=== PATIENT | female | born 1945 | race Caucasian/White ===

== ENCOUNTER → 2017-08-09 | Outpatient (CLI) | payer MEDICARE ==
[2017-08-09 10:52] LABS: CH 29.3; CHCM 30.5; HCT 45.8 % (34.0-46.0); HDW 2.03; HGB 14.3 gm/dL (11.4-16.0); Hypochromasia Slight; MCH 30.2 pg (25.0-35.0); MCHC 31.3 g/dL (31.0-37.0); MCV 96.5 fL (80.0-100.0); Mean Platelet Volume 7.7; RBC 4.75 m/uL (3.80-5.40); RDW 12.5 % (11.5-15.5); WBC 7.6 k/uL (3.8-10.6)
[2017-08-09 11:05] LABS: Partial Thromboplastin Time 23.1 sec (22.0-30.0); Prothrombin Time 10.3 sec (9.0-12.0)
[2017-08-09 11:13] LABS: Appearance,Urine Clear (Clear); Bacteria,Urine Rare /hpf; Bilirubin,Urine Negative (Negative); Glucose,Urine (UA) Negative (Negative); Ketones,Urine Negative (Negative); Leukocyte Esterase,Urine Small (Negative); Mucus,Urine Rare /hpf; Nitrite,Urine Negative (Negative); PH, Urine 6.5 (5.0-8.0); Particle Count 2621; Protein,Urine Trace (Negative); RBC,Urine 1 /hpf (0-5); Specific Gravity,Urine 1.015 (1.001-1.035); Squamous Epithelial Cell,Urine 3 /hpf (0-4); UA Billing (MACRO vs. MICRO) MICRO; Urobilinogen,Urine <2.0 mg/dL (<2.0); WBC,Urine 1 /hpf (0-5)
[2017-08-09 11:16] LABS: ALT 45 U/L (9-52); AST 42 U/L (14-36); Alkaline Phosphatase 98 U/L (38-126); Anion Gap 9 mmol/L; Blood Urea Nitrogen 18 mg/dL (7-17); Calcium 9.5 mg/dL (8.4-10.2); Carbon Dioxide 24 mmol/L (22-30); Chloride 107 mmol/L (98-107); Glucose 99 mg/dL (74-99); Non-African American GFR(MDRD) >60 (>60 ml/min/1.73 sqM); Sodium 140 mmol/L (137-145); Total Bilirubin 0.6 mg/dL (0.2-1.3); Total Protein 7.2 g/dL (6.3-8.2)
[2017-08-09 11:20] LABS: Potassium 5.3 mmol/L (3.5-5.1)
== END | disposition home or self-care (01) ==
LOC: LABPAT 10:10
PROVIDERS: ATTEND Orthopaedic Surgery
DX: Z01.810 Encounter for preprocedural cardiovascular examination (principal); Z01.812 Encounter for preprocedural laboratory examination; M17.12 Unilateral primary osteoarthritis, left knee
CPT/HCPCS: 36415; 80053; 81001; 85027; 85610; 85730; 87070

== ENCOUNTER → 2017-11-23 | Outpatient (CLI) | payer MEDICARE ==
--- NOTE | 2017-11-24 11:44 | BD ---
EXAMINATION TYPE: MG DEXA axial skeleton. DATE OF EXAM: 11/23/2017 COMPARISON: NONE CLINICAL Osteoporosis screening . Postmenopausal female. Height: 5'5 1/2 Weight: 249 FRAX RISK QUESTIONS: Alcohol (3 or more units per day): no Family History (Parent hip fracture): no Glucocorticoids (More than 3mos): no (Ex: prednisone, prednisolone, methylprednisolone, dexamethasone, and hydrocortisone). History of Fracture in Adulthood: no Secondary Osteoporosis: 1. Type 1 Diabetes: no 2. Hyperthyroidism: no 3. Menopause before 45: yes 4. Malnutrition: no 5. Chronic liver disease: no Rheumatoid Arthritis: no Current Tobacco Use: no RISK FACTORS HISTORY OF: Diet low in dairy products/other sources of calcium: Postmenopausal woman: MEDICATIONS: Additional Medications: blood pressure, arthritis, stomach , Additional History: partial thyroidectomy 2010 goiter EXAM MEASUREMENTS: Bone mineral densitometry was performed using the Trufa System. Bone mineral density as measured about the Lumbar spine is: ----- L1-L4(G/cm2): 1.243 T Score Values are as follows: ----- L2: -0.4 ----- L3: 0.9 ----- L4: 0.7 ----- L1-L4: 0.5 Bone mineral density about the R hip (g/cm2): 0.882 Bone mineral density about the L hip (g/cm2): 0.815 T Score values are as follows: -----R Neck: -1.1 -----L Neck: -1.6 -----R Total: -1.6 -----L Total: -1.4 IMPRESSION: Osteopenia (T Score between -2.5 and -1) as noted by T score values with respect to both hips. There is slightly increased risk of fracture and the patient may be considered for treatment. Re-Screen 2-5 years. NOTE: T-SCORE=SD OF THE YOUNG ADULT MEAN.
== END | disposition home or self-care (01) ==
LOC: RADBDWWP 16:08
PROVIDERS: ATTEND Family Medicine
DX: M85.851 Other specified disorders of bone density and structure, right thigh (principal); M85.852 Other specified disorders of bone density and structure, left thigh
CPT/HCPCS: 77080

== ENCOUNTER → 2018-03-10 | Outpatient (CLI) | payer MEDICARE ==
[2018-03-10 15:52] LABS: Appearance,Urine Clear (Clear); Bilirubin,Urine Negative (Negative); Blood,Urine Negative (Negative); Color,Urine Yellow; Glucose,Urine (UA) Negative (Negative); Ketones,Urine Negative (Negative); Leukocyte Esterase,Urine Negative (Negative); Nitrite,Urine Negative (Negative); Protein,Urine Negative (Negative); Specific Gravity,Urine 1.019 (1.001-1.035); Urobilinogen,Urine <2.0 mg/dL (<2.0)
[2018-03-10 15:54] LABS: HCT 39.5 % (34.0-46.0); MCH 29.5 pg (25.0-35.0); MCV 89.2 fL (80.0-100.0); Mean Platelet Volume 7.7; Platelet Count 260 k/uL (150-450); RBC 4.43 m/uL (3.80-5.40); RDW 13.5 % (11.5-15.5); WBC 8.5 k/uL (3.8-10.6)
[2018-03-10 16:01] LABS: Partial Thromboplastin Time 22.9 sec (22.0-30.0); Prothrombin Time 9.8 sec (9.0-12.0)
[2018-03-10 16:16] LABS: ALT 19 U/L (9-52); AST 28 U/L (14-36); Albumin 3.8 g/dL (3.5-5.0); Alkaline Phosphatase 92 U/L (38-126); Anion Gap 14 mmol/L; Blood Urea Nitrogen 23 mg/dL (7-17); Calcium 9.4 mg/dL (8.4-10.2); Carbon Dioxide 23 mmol/L (22-30); Chloride 105 mmol/L (98-107); Glucose 86 mg/dL (74-99); Potassium 4.2 mmol/L (3.5-5.1); Sodium 142 mmol/L (137-145); Total Bilirubin 0.2 mg/dL (0.2-1.3); Total Protein 7.2 g/dL (6.3-8.2)
== END ==
LOC: LABWHC1 15:07
PROVIDERS: ATTEND Orthopaedic Surgery
DX: Z01.812 Encounter for preprocedural laboratory examination (principal); Z79.01 Long term (current) use of anticoagulants
CPT/HCPCS: 36415; 80053; 81003; 85027; 85610; 85730; 87070

== ENCOUNTER → 2018-03-16 | Outpatient (CLI) | payer MEDICARE ==
--- NOTE | 2018-03-16 17:15 | US ---
EXAMINATION TYPE: US carotid duplex BILAT DATE OF EXAM: 03/16/2018 COMPARISON: NONE CLINICAL HISTORY: G45.9 TRANSIENT CEREBRAL ISCHEMIC ATTACK. TIA 09/24. Patient having a total knee re placement 03/21/18 EXAM MEASUREMENTS: RIGHT: Peak Systolic Velocity (PSV) cm/sec ----- Right CCA: 65.2 ----- Right ICA: 94.4 ----- Right ECA: 94.9 ICA/CCA ratio: 1.4 RIGHT: End Diastole cm/sec ----- Right CCA: 19.9 ----- Right ICA: 36.2 ----- Right ECA: 12.1 LEFT: Peak Systolic Velocity (PSV) cm/sec ----- Left CCA: 89.4 ----- Left ICA: 96.6 ----- Left ECA: 93.3 ICA/CCA ratio: 1.1 LEFT: End Diastole cm/sec ----- Left CCA: 29.1 ----- Left ICA: 45.0 ----- Left ECA: 15.4 VERTEBRALS (direction of flow): Right Vertebral: Antegrade Left Vertebral: Antegrade Rhythm: Normal No evidence of increased velocities or significant stenosis. IMPRESSION: There is antegrade flow in the vertebral arteries. The images and measurements suggest c lose to 0% stenosis in both internal carotid arteries. Criteria for Assigning % of Stenosis / Diameter reduction (Estimation based on the indirect measurements of the internal carotid artery velocities (ICA PSV). 1. Normal (no stenosis)=ICA PSV < 125 cm/s: ratio < 2.0: ICA EDV<40 cm/s. 2. Less than 50% stenosis=ICA PSV < 125 cm/s: ratio < 2.0: ICA EDV<40 cm/s. 3. 50 to 69% stenosis=ICA PSV of 125 to 230 cm/s: ration 2.0 ? 4.0: ICA EDV 40-100 cm/s. 4. Greater than 70% stenosis to near occlusion= ICA PSV > 230 cm/s: ratio > 4.0: ICA EDV > 100 cm/s. 5. Near occlusion= ICA PSV velocities may be low or undetectable: variable ratio and ICA EDV. 6. Total occlusion=unable to detect flow.
== END | disposition home or self-care (01) ==
LOC: RADUSWWP 16:14
PROVIDERS: ATTEND Family Medicine
DX: G45.9 Transient cerebral ischemic attack, unspecified (principal)
CPT/HCPCS: 93880

== ENCOUNTER 2018-03-21 06:07 | Inpatient (IN) | payer MEDICARE ==
[2018-03-14 11:02] VITALS: BMI 38.8
[~2018-03-21 06:07] MED LIST: ACETAMINOPHEN TAB 500 MG TAB PO ONE; DEXAMETHASONE SOD PHOSPHATE 10 MG/ML 1 ML VIAL IV ONE; MELOXICAM 7.5 MG TAB PO ONE; MIDAZOLAM 2 MG/2 ML VIAL IV PRN; ONDANSETRON 4 MG/2 ML VIAL IVP ONE; TRANEXAMIC ACID 1,000 MG in SODIUM CHLORIDE 0.9% 50 ML IVPB ONE; ceFAZolin IN SWFI 2 GM/20 ML SYRINGE IVP ONE; fentaNYL (PF) 50 MCG/ML 2 ML AMP IV PRN
[2018-03-21] MEDS ORDERED: ROPIVACAINE 246.25 MG, EPINEPHrine 0.5 MG, KETOROLAC 30 MG, cloNIDine HCL/PF 80 MCG, WA... MISCELLANE ONE ×5 (07:00)
[2018-03-21] MEDS ORDERED: LIDOCAINE 1% 20 ML VIAL (10MG/ML) FOR IV START INTRADERMA ONE (07:03)
[2018-03-21] MEDS: LACTATED RINGERS 1,000 ML IV SCH ×3 (07:03→21:44)
[2018-03-21] MEDS ORDERED: MIDAZOLAM 2 MG/2 ML VIAL ONE (08:07)
[2018-03-21] MEDS ORDERED: diphenhydrAMINE 50 MG/ML 1 ML VIAL ONE (08:07)
[2018-03-21] MEDS ORDERED: fentaNYL (PF) 50 MCG/ML 2 ML AMP ONE (08:07)
[2018-03-21] MEDS ORDERED: ePHEDrine SULFATE/0.9% NACL/PF 50 MG/5 ML SYRINGE IV ONE (08:07)
[2018-03-21] MEDS ORDERED: LACTATED RINGERS 1,000 ML IV ONE (09:02)
[2018-03-21] MEDS: LACTATED RINGERS 1,000 ML IV ONE ×2 (09:02→10:43)
[2018-03-21] MEDS ORDERED: ceFAZolin 3,000 MG in SODIUM CHLORIDE 0.9% IRRIGATIO 3,000 ML IRRIGATION ONE (09:51)
[2018-03-21] MEDS ORDERED: NA PHOS,M-B/NA PHOS,DI-BA 133 ML ENEMA RECTAL PRN (10:48)
[2018-03-21] MEDS ORDERED: MORPHINE SULFATE 4 MG/ML SYRINGE IVP PRN ×4 (10:48)
[2018-03-21] MEDS ORDERED: BISACODYL 10 MG SUPP RECTAL PRN (10:48)
[2018-03-21] MEDS ORDERED: MAGNESIUM HYDROXIDE 2,400 MG/10 ML CUP PO PRN (10:48)
[2018-03-21] MEDS ORDERED: NALOXONE 0.4 MG/ML 1 ML VIAL IV PRN (10:48)
[2018-03-21] MEDS ORDERED: hydrOXYzine PAMOATE 25 MG CAP PO PRN (10:48)
[2018-03-21] MEDS ORDERED: KETOROLAC 30 MG/ML 1 ML VIAL IVP ONE (11:22)
--- NOTE | 2018-03-21 11:36 | XR ---
EXAMINATION TYPE: XR knee limited RT DATE OF EXAM: 03/21/2018 CLINICAL HISTORY: Right knee pain and arthritis status post total knee replacement. TECHNIQUE: Portable AP and crosstable lateral views of the right knee are obtained immediately posto peratively. COMPARISON: Bilateral knee x-ray September 01, 2015 FINDINGS: Metallic hardware from total right knee arthroplasty is seen and appears satisfactory in a lignment and position. There is evidence of recent surgery with diffuse subcutaneous gas and soft ti ssue swelling noted. IMPRESSION: METALLIC HARDWARE FROM TOTAL RIGHT KNEE ARTHROPLASTY IS SATISFACTORY IN ALIGNMENT.
[2018-03-21] MEDS ORDERED: ONDANSETRON 4 MG/2 ML VIAL IVP PRN (11:52)
[2018-03-21] MEDS ORDERED: ALBUTEROL NEBULIZED 2.5 MG/3 ML INHALATION PRN (12:35)
[2018-03-21] MEDS ORDERED: FLUTICASONE 50MCG/SPRAY NASAL 16GM EA NOSTRIL PRN (12:35)
[2018-03-21 16:59] LABS: Glucose,Whole Blood 110 mg/dL (75-99)
[2018-03-21] MEDS: ceFAZolin IN SWFI 2 GM/20 ML SYRINGE IVP SCH (17:47)
[2018-03-21] MEDS: traMADol 50 MG TAB PO PRN ×2 (17:48→23:13)
[2018-03-21] MEDS ORDERED: WARFARIN 5 MG TAB PO ONE (18:00)
[2018-03-21] MEDS ORDERED: cloNIDine HCL 0.1 MG TAB PO SCH (21:00)
[2018-03-21] MEDS ORDERED: SENNOSIDES-DOCUSATE SODIUM 1 EACH TAB PO SCH (21:00)
[2018-03-21] MEDS: cycloSPORINE 0.05% OPHTH 0.4 ML DROPERETTE BOTH EYES SCH (21:46)
[2018-03-21] MEDS: FAMOTIDINE 20 MG TAB PO SCH (21:46)
[2018-03-22] MEDS: ceFAZolin IN SWFI 2 GM/20 ML SYRINGE IVP SCH (00:05)
[2018-03-22] MEDS: LACTATED RINGERS 1,000 ML IV SCH ×2 (04:28)
[2018-03-22] MEDS: traMADol 50 MG TAB PO PRN ×2 (04:29→11:01)
--- NOTE | 2018-03-22 07:25 | CONS ---
CONSULTATION DATE OF SERVICE: 03/21/2018 REASON FOR CONSULTATION: Advice regarding hypertension, multiple medical issues requested by Orthopedic Surgery. HISTORY OF PRESENT ILLNESS: This is a 72-year-old woman with a past medical history of multiple medical problems including CVA, TIA, GERD, hypertension, DJD being followed by Dr. Jordan in the outpatient setting after total right knee arthroplasty by Dr. Varela. There is no history of chest pain. No palpitations. No history of headache, loss pf consciousness, nausea, diarrhea, fever or rigors. PAST MEDICAL HISTORY: DJD, history of hypertension, history of hypothyroidism, migraines, hiatal hernia. MEDICATIONS PRIOR TO ADMISSION INCLUDING HOME MEDICATIONS ARE: 1. Ultram 50 mg p.o. b.i.d. 2. Restasis 1 drop both eyes b.i.d. 3. Catapres 0.1 q.h.s. 4. Vitamin A, C,. lutein minerals 1 tablet p.o. daily. 5. Ranitidine 150 mg p.o. b.i.d. 6. Multivitamin 1 p.o. daily. 7. Meloxicam 15 mg p.o. daily. 8. Cozaar 25 mg p.o. 9. Claritin 10 mg p.o. daily. 10.Probiotic 1 capsule daily. 11.Glucosamine chondroitin 1 capsule p.o. daily. 12.Flonase 2 sprays daily p.r.n.. 13.Nexium 20 mg p.o. daily. 14.Vitamin D3 one thousand daily. 15.Ecotrin 81 mg p.o. daily. 16.ProAir 1 puff q.i.d. p.r.n. 17.Ultram 50 mg q.6 p.r.n. 18.Coumadin 2.5 mg p.o. daily. 19.1 tablet p.o. b.i.d. ALLERGIES: HYDROCODONE, ADHESIVE TAPE, ERYTHROMYCIN BASE. FAMILY HISTORY: History of cancer, hypertension, uterine cancer. SOCIAL HISTORY: Occasional alcohol. No history of smoking. REVIEW OF SYSTEMS: ENT: No diminished hearing or diminished vision. CARDIOVASCULAR: No angina. RESPIRATION: As mentioned earlier. GI: No nausea. : No dysuria. NERVOUS SYSTEM: No numbness or weakness. ALLERGY/IMMUNOLOGY: Asthma. MUSCULOSKELETAL: As mentioned earlier. RHEUMATOLOGY: Negative. ENDOCRINE: No history of diabetes or hypothyroidism. CONSTITUTIONAL: As mentioned earlier. DERMATOLOGY: Negative. PSYCHIATRY: As mentioned earlier. PHYSICAL EXAM: Patient is alert and oriented x3. Pulse is 82, blood pressure 125/52, respiration 15, temperature 98.2, pulse ox 94% on room air. HEENT: Conjunctivae normal. NECK: No jugular venous distension. CARDIAC: S1, S2 muffled. RESPIRATORY: Breath sounds diminished at the bases, no rhonchi, no crackles. ABDOMEN: Soft, nontender. No mass palpable. LEGS: Status post right knee arthroplasty. NERVOUS SYSTEM: Higher functions as mentioned earlier, moves all limbs, no focal deficits. LYMPHATICS: No lymphadenopathy in the neck or axillae. SKIN: No rash or bleeding. LABS: Glucose 110. ASSESSMENT: 1. Status post right total knee arthroplasty. 2. Cerebrovascular accident, transient ischemic attack. 3. Gastroesophageal reflux disease. 4. Hypertension. 5. Degenerative joint disease. 6. Hypothyroidism. 7. History of migraines. 8. Hiatal hernia. 9. History of cholecystectomy. RECOMMENDATION: Continue current medical management. Resume the rest of the home medications. ordered. DVT prophylaxis. Incentive spirometry. Otherwise continue to monitor. Further recommendations to follow. Patient will be asked to follow with Dr. Jordan closely after discharge. Thank you Dr. Varela, for letting us participate in the care of your patient. MMODL / IJN: [id number] / MTDD
[2018-03-22 07:28] LABS: INR 1.4 (<1.2); Prothrombin Time 12.8 sec (9.0-12.0)
[2018-03-22] MEDS ORDERED: PANTOPRAZOLE 40 MG TABLET PO SCH (07:30)
[2018-03-22 07:31] LABS: Basophils % (A) 0 %; Eosinophils % (A) 0 %; HCT 34.9 % (34.0-46.0); HGB 11.4 gm/dL (11.4-16.0); Lymphocytes # (A) 1.9 k/uL (1.0-4.8); Lymphocytes % (A) 14 %; MCH 29.5 pg (25.0-35.0); MCHC 32.6 g/dL (31.0-37.0); MCV 90.6 fL (80.0-100.0); Mean Platelet Volume 7.6; Monocytes # (A) 1.1 k/uL (0-1.0); Monocytes % (A) 8 %; Neutrophils # (A) 10.7 k/uL (1.3-7.7); Neutrophils % (A) 77 %; Platelet Count 240 k/uL (150-450); RBC 3.85 m/uL (3.80-5.40); RDW 13.5 % (11.5-15.5); WBC 13.8 k/uL (3.8-10.6)
[2018-03-22] MEDS: FAMOTIDINE 20 MG TAB PO SCH (07:50)
[2018-03-22] MEDS: cycloSPORINE 0.05% OPHTH 0.4 ML DROPERETTE BOTH EYES SCH (07:51)
[2018-03-22 08:01] VITALS: BP 101/65; PULSE 77; RESP 16; TEMP 98.8
[2018-03-22] MEDS ORDERED: LORATADINE 10 MG TAB PO SCH (09:00)
[2018-03-22] MEDS ORDERED: MELOXICAM 7.5 MG TAB PO SCH (09:00)
[2018-03-22] MEDS ORDERED: ASPIRIN 81 MG PO SCH (09:00)
[2018-03-22] MEDS ORDERED: LOSARTAN 25 MG TAB PO SCH (09:00)
--- NOTE | 2018-03-22 09:15 | P.DS ---
Providers Date of admission: 03/21/18 06:07 Expected date of discharge: 03/22/18 Attending physician: Deepak Varela Consults: 03/21/18 20:35 Consult Physician Routine Consulting Provider: Lissette Delgado Consult Reason/Comments: Medical Management Do you want consulting provider notified?: Yes Primary care physician: Anita Jordan - Discharge Diagnosis(es) (1) Osteoarthritis of right knee Patient was admitted to the OR on 03/21/2018 to undergo Right Total knee arthroplasty. She had failed conservative measures as an outpatient and desired to proceed with elective surgery after given informed consent. She underwent the above procedure which she tolerated well without complication. Postoperative hospital course has remained without complication. On day of discharge she is afebrile, vital signs stable, labs within acceptable ranges, tolerating by mouth meds and diet, voiding without difficulty, positive flatus, denies abdominal pain or calf pain, pain is controlled on oral pain medication and has no new complaints. Wound is benign, neurovascular status is intact, calf is soft and nontender, abdomen soft and nontender. Review of systems is negative for numbness, tingling, fever, chills, chest pain, shortness breath, nausea, vomiting, dizziness, headaches, slurred speech or other. Current Visit: Yes Status: Acute Priority: Medium Procedures: Right TKA Patient Condition at Discharge: Good Plan - Discharge Summary Discharge Rx Participant: Yes New Discharge Prescriptions: New Sennosides-Docusate Sodium [Senokot-S] 1 tab PO BID #60 tablet traMADol HCL [Ultram] 50 mg PO Q6HR PRN #90 tab PRN Reason: Pain Warfarin [Coumadin] 2.5 mg PO DAILY #1 tab No Action Esomeprazole Magnesium [NexIUM] 20 mg PO DAILY Vits A,C,E/Lutein/Minerals [Ocuvite with Lutein Tablet] 1 tab PO DAILY Multivitamins, Thera [Multivitamin (formulary)] 1 tab PO DAILY L.acidoph,Paracasei, B.lactis [Probiotic] 1 cap PO DAILY Glucosam/Murali-Msm1/C/Hai/Bosw [Glucosamine-Chondroitin Tablet] 1 tab PO DAILY cycloSPORINE [Restasis] 1 drop BOTH EYES BID cloNIDine HCL [Catapres] 0.1 mg PO HS Fluticasone Nasal Ona [Flonase Nasal Ona] 2 spr EA NOSTRIL DAILY PRN PRN Reason: Allergy Symptoms traMADol HCl [Ultram] 50 mg PO BID Losartan Potassium [Cozaar] 25 mg PO DAILY Loratadine [Claritin] 10 mg PO DAILY Meloxicam [Meloxicam] 15 mg PO DAILY Ranitidine HCl 150 mg PO BID Albuterol Sulfate [Proair Respiclick] 1 puff PO RT-QID PRN PRN Reason: Shortness Of Breath Cholecalciferol [Vitamin D3] 1,000 unit PO DAILY Aspirin [Adult Low Dose Aspirin EC] 81 mg PO DAILY Discharge Medication List Esomeprazole Magnesium [NexIUM] 20 mg PO DAILY 09/01/15 [History] Vits A,C,E/Lutein/Minerals [Ocuvite with Lutein Tablet] 1 tab PO DAILY 09/01/15 [History] Fluticasone Nasal Ona [Flonase Nasal Ona] 2 spr EA NOSTRIL DAILY PRN [History] Glucosam/Murali-Msm1/C/Hai/Bosw [Glucosamine-Chondroitin Tablet] 1 tab PO DAILY 08/05/17 [History] L.acidoph,Paracasei, B.lactis [Probiotic] 1 cap PO DAILY 08/05/17 [History] Multivitamins, Thera [Multivitamin (formulary)] 1 tab PO DAILY 08/05/17 [History ] cloNIDine HCL [Catapres] 0.1 mg PO HS 08/05/17 [History] cycloSPORINE [Restasis] 1 drop BOTH EYES BID 08/05/17 [History] Losartan Potassium [Cozaar] 25 mg PO DAILY 09/08/17 [History] traMADol HCl [Ultram] 50 mg PO BID 09/08/17 [History] Albuterol Sulfate [Proair Respiclick] 1 puff PO RT-QID PRN 03/14/18 [History] Loratadine [Claritin] 10 mg PO DAILY 03/14/18 [History] Meloxicam [Meloxicam] 15 mg PO DAILY 03/14/18 [History] Ranitidine HCl 150 mg PO BID 03/14/18 [History] Aspirin [Adult Low Dose Aspirin EC] 81 mg PO DAILY 03/21/18 [History] Cholecalciferol [Vitamin D3] 1,000 unit PO DAILY 03/21/18 [History] Sennosides-Docusate Sodium [Senokot-S] 1 tab PO BID #60 tablet 03/21/18 [Rx] Warfarin [Coumadin] 2.5 mg PO DAILY #1 tab 03/21/18 [Rx] traMADol HCL [Ultram] 50 mg PO Q6HR PRN #90 tab 03/21/18 [Rx] Follow up Appointment(s)/Referral(s): Caroline Collado, PAC [PHYSICIAN CORE MACHINE TENDER] - 2 Weeks Ambulatory/Diagnostic Orders: Continuous Passive Motion (CPM) Machine [DME.AMB1] Time Frame: 3 Weeks, Facility : [facility], Location: Case Management Prothrombin Time INR [LAB.AMB] Location: Determined By Patient Activity/Diet/Wound Care/Special Instructions: May bear wt as tolerated with walker. May shower if no drainage from incision. CPM 5-6h dailly. Discharge Disposition: HOME WITH HOME HEALTH SERVICES
[2018-03-22 11:20] LABS: Glucose,Whole Blood 97 mg/dL (75-99)
[2018-03-22] MEDS ORDERED: MULTIVITAMINS, THERA 1 EACH TAB PO SCH (12:00)
[2018-03-22] MEDS ORDERED: CHOLECALCIFEROL 1,000 UNIT TAB PO SCH (12:00)
--- NOTE | 2018-03-22 14:42 | P.PN ---
Subjective Patient is clinically doing well is being discharged today her blood pressure is on the low normal side which is expected post surgery. Asked her to continue her losartan check the blood pressure at home taken to the primary care physician patient is also on clonidine at nighttime for hot flashes. Constitutional: Denied any fatigue denied any fever. Cardio vascular: denied any chest pain, palpitations Gastrointestinal denied any nausea vomiting Pulmonary: Denied any shortness of breath cough Neurologic denied any new focal deficits Objective - Vital Signs Vital signs: Vital Signs Temp 98.8 F 03/22/18 07:42 Pulse 77 03/22/18 07:42 Resp 16 03/22/18 07:42 BP 101/65 03/22/18 07:42 Pulse Ox 96 03/22/18 07:42 Intake & Output 03/21/18 03/22/18 03/22/18 18:59 06:59 18:59 Intake Total 1801 800 474 Output Total 550 Balance 1251 800 474 Weight 112.491 kg Intake: IV 1501 Intake, IV Titration 300 800 Amount Lactated Ringers 1,000 ml 300 800 @ 100 mls/hr IV .Q10H SHABANA Rx#:[id number] Oral 474 Output: Urine 500 Estimated Blood Loss 50 Other: # Voids 2 1 # Bowel Movements 0 - Exam PHYSICAL EXAMINATION: GENERAL: The patient is alert and oriented x3, not in any acute distress. Well developed, well nourished. HEENT: Pupils are round and equally reacting to light. EOMI. No scleral icterus. No conjunctival pallor. Normocephalic, atraumatic. No pharyngeal erythema. No thyromegaly. CARDIOVASCULAR: S1 and S2 present. No murmurs, rubs, or gallops. PULMONARY: Chest is clear to auscultation, no wheezing or crackles. ABDOMEN: Soft, nontender, nondistended, normoactive bowel sounds. No palpable organomegaly. MUSCULOSKELETAL: Deferred to orthopedic surgery EXTREMITIES: No cyanosis, clubbing, or pedal edema. NEUROLOGICAL: Gross neurological examination did not reveal any focal deficits. SKIN: No rashes. - Labs CBC & Chem 7: 03/22/18 06:12 Labs: Abnormal Lab Results - Last 24 Hours (Table) 03/21/18 03/22/18 03/22/18 Range/Units 16:57 06:12 06:12 WBC 13.8 H (3.8-10.6) k/uL Neutrophils # 10.7 H (1.3-7.7) k/uL Monocytes # 1.1 H (0-1.0) k/uL PT 12.8 H (9.0-12.0) sec INR 1.4 H (<1.2) POC Glucose (mg/dL) 110 H (75-99) mg/dL Assessment and Plan Plan: -Leukocytosis: Reactive in nature without any signs or symptoms of infection patient is okay to discharged from medical perspective -Status post right knee arthroplasty patient's pain is well-controlled DVT prophylaxis and the pain management as per primary service -Hypertension management as mentioned above -Gastroesophageal reflux disease -Hypothyroidism -History of migraines -Degenerative joint disease with the right knee replacement now and history of left knee replacement in the past
[2018-03-22] MEDS ORDERED: WARFARIN 5 MG TAB PO ONE (18:00)
--- NOTE | 2018-04-06 17:23 | P.OP ---
Date of Procedure: 03/21/18 Procedure(s) Performed: PREOPERATIVE DIAGNOSIS: Right knee severe osteoarthritis with genu varum POSTOPERATIVE DIAGNOSIS: Right knee severe osteoarthritis with genu varum; 2. Diminished bone quality/osteopenia/osteoporosis OPERATION: Right knee cemented total replacement arthroplasty. ANESTHESIA: Spinal ESTIMATED BLOOD LOSS: 100 ml. DIRECTOR GLOBAL INTELLIGENCE: Caroline Collado PA-C (assistance with: patient positioning, retraction, exposure, hemostasis, leg positioning, implantation, irrigation, closure, dressing) COMPLICATIONS: None apparent. COMPONENTS IMPLANTED: Persona system from [employer] with tibial stem extension INDICATIONS: Mrs. Alvarez is a 72-year-old female with a history of knee osteoarthritis. She has already successfully undergone left knee replacement recently with excellent results. The patient's right knee is end-stage, and conservative management has failed. The operation of knee replacement has been discussed at length in the office, as well as potential risks and complications. These are inclusive of, but not limited to: bleeding, infection , scarring, discomfort, blood vessel and nerve damage, need for further surgery , failure to relieve symptoms, persistence, recurrence, or worsening of problems , loosening, dislocation, wear, blood clot, pulmonary embolism, , gait dysfunction, stiffness, and other risks as discussed in the office. The patient elects to proceed and the consent form has been signed. PROCEDURE: The patient was taken to the operating room and positioned on the operating room table in the supine position. Anesthesia was initiated. Care was taken to make sure that all pressure points were adequately padded. The operative lower extremity was prepped and draped in the usual aseptic fashion using ChloraPrep. Ioban drape was used for the case and the patient received intravenous antibiotics within one hour of the incision. A pneumotourniquet and leg wall were used for the case. The limb was exsanguinated with an Esmarch bandage and the tourniquet was inflated to 350 mmHg. Time-out was called confirming the patient's identity, side, procedure and administration of antibiotics. The incision was then created midline directly over the knee, carried down through skin and into the subcutaneous tissues and down to fascia. Full thickness subcutaneous medial flap was developed. Medial parapatellar arthrotomy was performed and the interior of the knee was inspected. There was end-stage osteoarthritis of the knee with a mild to moderate genu varum type deformity. The fat pad was excised and proximal medial release on the tibia was completed using meticulous dissection and a curved osteotome. The anterior cruciate ligament was taken down. Note was made of significant attrition of the anterior and significant degenerative appearance of the posterior cruciate ligaments. The exposure was excellent. The knee was flexed 90 degrees and the patella was everted. A spot was chosen on the femur approximately 1 cm anterior to the posterior cruciate ligament insertion and an intramedullary hole was created within the femur. The intramedullary guide was then set to 5 degrees of valgus. The distal cutting block was attached and pinned into position. An appropriate amount of distal femoral resection was set. The oscillating saw was then used to make the distal femoral cut. This cut was confirmed to be flat with the flat end of an osteotome. The retractors were placed around the tibia and the tibial surface was addressed. The angle and depth of resection was adjusted using an extramedullary cutting guide. The guide had a built-in 3 degree posterior slope cut. Once the cutting guide was adjusted appropriately and in line with the axis of the tibia and confirmed to be in good position in relation to the second metatarsal and transmalleolar axis, the tibial cut was then created with protection of the posterior neurovascular structures and the collateral ligaments. Note was made of diminished bone quality and therefore a short tibial stem extension was planned. The tibial cut surface was removed and sized. Femoral sizing was then accomplished using anterior referencing. Care was taken to analyze the posterior condyles for signs of deficiency or severe wear, and adjustments to the guide were made, as appropriate. 3 degree external rotation pins were placed. The cutting jig for the femur was applied to these pins. The planned cuts were further analyzed prior to performing them with the oscillating saw. No femoral notching was produced. Bone fragments were removed and the cut surfaces were finished, as necessary, with a reciprocating saw. Spacer block technique was then used to confirm that the flexion and extension gaps were equal. Soft tissue releases and adjustment of the tibial and/or femoral cuts were made, as necessary, until the gaps were equal. This included release of the posterior cruciate ligament, which was tight in this patient and , if left unreleased, would have resulted in poor kinematics and possibly early loosening. The femur was then further finished for a posterior cruciate ligament substituting component. Patellar resurfacing was performed using a reamer. The size of the required patellar component was estimated and the patellar surface was then reamed down to a residual thickness which would recreate the port gamble thickness with the component. The exact placement of the patellar component was adjusted for position based on preoperative x-rays and intraoperative findings. Prior to placing trial components, anesthetic solution consisting of ropivicaine with epinephrine, ketorolac, and clonidine was injected carefully and methodically in a grid pattern using aspiration technique into the soft tissue around the knee circumferentially, starting with the deeper tissues first and progressing to fascia, and then finally the skin/subcutaneous tissue. Particular care was taken when injecting the posterior capsule. The trial components were inserted. The tibial tray was allowed to self center and the patella was noted to track very well. The position of the tibial component was marked and the tibia was then finished for a stemmed tibial component with a stem extension secondary to the patient's osteoporosis. Cement was mixed on the back table and applied to the final components. Trial components were removed and the cut surfaces of the bone were pulse lavaged thoroughly and dried. Cement was then applied to the tibial surface and pressurized into the surface using finger pressurization technique. The tibial component with stem extension was then applied and excess cement was removed after it was impacted securely and noted to be flush with the cut surface. In similar fashion, the cement was applied to the cut femoral surface, pressurized in using finger pressurization and the component was impacted into place. Excess cement was removed. The polyethylene spacer was then implanted and locked into position. The patellar component was then applied in similar technique and a patellar clamp was used to hold the patella in place as the cement hardened. Once the cement had fully hardened, the knee was reinspected. Any other cement extrusion was removed and final kinematic testing showed range of motion from 0 to 130 degrees with excellent stability, both medially and laterally and appropriate alignment of the leg. Patellar tracking was excellent. The knee was then thoroughly pulse lavaged with normal saline. The tourniquet was deflated and hemostasis was obtained with electrocautery and IV tranexamic acid, 1 g given at the start of the operation and 1 g at the start of closure. Closure was with #2 Ethibond in the fascia/capsule and supplemented with #2 Quill, 2-0 Vicryl suture was used for the subcutaneous tissues and 3-0 Quill for the skin. Dermabond/Steri-Strips were then applied. A lightly compressive dressing was applied using Webril and an Jefe wrap. The patient was then transferred to [facility] and taken to the recovery room in stable condition. Sponge and needle counts were correct.
== END 2018-03-22 14:32 | disposition home health service (06) | DRG 470 ==
LOC: 2ORMAIN 06:07 → 3SUR 11:02
PROVIDERS: ADMIT Orthopaedic Surgery; ATTEND Orthopaedic Surgery
PROC: 0SRC0J9 Replacement of Right Knee Joint with Synthetic Substitute, Cemented, Open Approach (ICD-10-PCS; principal; 2018-03-21 08:00)
DX: M17.11 Unilateral primary osteoarthritis, right knee (principal); E89.0 Postprocedural hypothyroidism; M21.161 Varus deformity, not elsewhere classified, right knee; M81.0 Age-related osteoporosis without current pathological fracture; I10 Essential (primary) hypertension; K21.9 Gastro-esophageal reflux disease without esophagitis; K44.9 Diaphragmatic hernia without obstruction or gangrene; G43.909 Migraine, unspecified, not intractable, without status migrainosus; N95.1 Menopausal and female climacteric states; M85.861 Other specified disorders of bone density and structure, right lower leg; R26.9 Unspecified abnormalities of gait and mobility; H35.30 Unspecified macular degeneration; Z79.1 Long term (current) use of non-steroidal anti-inflammatories (NSAID); Z79.82 Long term (current) use of aspirin; Z79.01 Long term (current) use of anticoagulants; Z79.891 Long term (current) use of opiate analgesic; Z79.51 Long term (current) use of inhaled steroids; Z79.899 Other long term (current) drug therapy; Z90.49 Acquired absence of other specified parts of digestive tract; Z86.73 Personal history of transient ischemic attack (TIA), and cerebral infarction without residual deficits; Z96.652 Presence of left artificial knee joint; Z88.5 Allergy status to narcotic agent; Z88.1 Allergy status to other antibiotic agents; Z91.040 Latex allergy status; Z82.49 Family history of ischemic heart disease and other diseases of the circulatory system; Z80.49 Family history of malignant neoplasm of other genital organs
CPT/HCPCS: 85025; 85610; 88300

== ENCOUNTER 2018-07-05 10:08 | Emergency (ER) | payer MEDICARE ==
[2018-07-05 10:19] VITALS: BP 132/60; PULSE 75; RESP 16; TEMP 98.2
--- NOTE | 2018-07-05 11:04 | ED ---
Lower Extremity Injury HPI - General Source: patient, RN notes reviewed Mode of arrival: ambulatory Limitations: no limitations <Bobby Bonner - Last Filed: 07/05/18 11:19> <Chetan Nuñez - Last Filed: 07/05/18 11:25> - General Chief Complaint: Extremity Injury, Lower Stated Complaint: Lt leg pain Time Seen by Provider: 07/05/18 10:24 - History of Present Illness Initial Comments: This a 73-year-old female presents emergency Department with chief complaint of left leg pain. Patient states the pain started a day or so ago. She states initially has some pain around her knee but has now settled down more in her calf. She states that she was in [place] when this started she was walking was unusual. Patient states that she drove back to be seen. Patient denies any chest pain, and shortness of breath. She has no history of DVT. She has had bilateral knee surgery. Patient denies any redness, notable swelling. Denies any numbness or tingling at this time. She did state that the other day she had some. (Bobby Bonner) - Related Data Home Medications Medication Instructions Recorded Confirmed Esomeprazole Magnesium [NexIUM] 20 mg PO DAILY 09/01/15 07/05/18 Vits A,C,E/Lutein/Minerals 1 tab PO DAILY 09/01/15 07/05/18 [Ocuvite with Lutein Tablet] Fluticasone Nasal [place] [Flonase 2 spr EA NOSTRIL DAILY PRN 08/05/17 07/05/18 Nasal [place]] L.acidoph,Paracasei, B.lactis 1 cap PO DAILY 08/05/17 07/05/18 [Probiotic] Multivitamins, Thera [Multivitamin 1 tab PO DAILY 08/05/17 07/05/18 (formulary)] cloNIDine HCL [Catapres] 0.1 mg PO HS 08/05/17 07/05/18 cycloSPORINE [Restasis] 1 drop BOTH EYES BID 08/05/17 07/05/18 Losartan Potassium [Cozaar] 25 mg PO DAILY 09/08/17 07/05/18 Albuterol Sulfate [Proair 1 puff PO RT-QID PRN 03/14/18 07/05/18 Respiclick] Loratadine [Claritin] 10 mg PO DAILY 03/14/18 07/05/18 Meloxicam 15 mg PO DAILY 03/14/18 07/05/18 Ranitidine HCl 150 mg PO BID 03/14/18 07/05/18 Aspirin [Adult Low Dose Aspirin EC] 81 mg PO DAILY 03/21/18 07/05/18 Cholecalciferol [Vitamin D3] 1,000 unit PO DAILY 03/21/18 07/05/18 Allergies Allergy/AdvReac Type Severity Reaction Status Date / Time hydrocodone Allergy Nausea & Verified 07/05/18 10:33 Vomiting adhesive tape AdvReac skin Verified 07/05/18 10:33 irritation erythromycin base AdvReac Nausea Verified 07/05/18 10:33 Review of Systems ROS Other: All systems not noted in ROS Statement are negative. <Bobby Bonner - Last Filed: 07/05/18 11:19> ROS Other: All systems not noted in ROS Statement are negative. <Chetan Nuñez - Last Filed: 07/05/18 11:25> ROS Statement: Those systems with pertinent positive or pertinent negative responses have been documented in the HPI. Past Medical History Past Medical History: CVA/TIA, Eye Disorder, GERD/Reflux, Hypertension, Osteoarthritis (OA), Skin Disorder, Thyroid Disorder Additional Past Medical History / Comment(s): Hx migraines. Hiatal Hernia. Eczema, hx precancer skin lesions. ALYSON Corneal Dystrophy, Macular Degeneration. TIA 09/2017. VOCAL CORD PROB SINCE THYROID SURG, HOARSNESS, OCC DYSPHAGIA. OSTEOPOROSIS. HAS CAROTID US ON 03/16/18, CLEARANCE PENDING. History of Any Multi-Drug Resistant Organisms: None Reported Past Surgical History: Cholecystectomy, Hysterectomy, Joint Replacement, Orthopedic Surgery Additional Past Surgical History / Comment(s): Rt knee meniscus repair. Goiter removed and Partial Thyroidectomy. Left total knee replacement on 08/16/2017 Past Anesthesia/Blood Transfusion Reactions: No Reported Reaction Additional Past Anesthesia/Blood Transfusion Reaction / Comment(s): damage to vocal cords from thyroid surgery- told she should not have tube down her throat unless absolutely necessary Past Psychological History: No Psychological Hx Reported Smoking Status: Never smoker Past Alcohol Use History: None Reported Past Drug Use History: None Reported - Past Family History Mother Family Medical History: Cancer, Hypertension Additional Family Medical History / Comment(s): uterine Father Family Medical History: Coronary Artery Disease (CAD), Hypertension Additional Family Medical History / Comment(s): CABG <Bobby Bonner - Last Filed: 07/05/18 11:19> General Exam Limitations: no limitations General appearance: alert, in no apparent distress Head exam: Present: atraumatic, normocephalic, normal inspection Neck exam: Present: normal inspection. Absent: tenderness, meningismus, lymphadenopathy Respiratory exam: Present: normal lung sounds bilaterally. Absent: respiratory distress, wheezes, rales, rhonchi, stridor Cardiovascular Exam: Present: regular rate, normal rhythm, normal heart sounds. Absent: systolic murmur, diastolic murmur, rubs, gallop, clicks Extremities exam: Present: other (Tenderness to left calf, popliteal region, minimal swelling no erythema no increased warmth to the leg coloring is equal bilaterally, pedal pulses equal bilaterally) Skin exam: Present: warm, dry, intact, normal color. Absent: rash <Bobby Bonner - Last Filed: 07/05/18 11:19> Course <Bobby Bonner - Last Filed: 07/05/18 11:19> <Chetan Nuñez - Last Filed: 07/05/18 11:25> Vital Signs 07/05/18 10:15 Temperature 98.2 F Pulse Rate 75 Respiratory 16 Rate Blood Pressure 132/60 O2 Sat by Pulse 95 Oximetry - Reevaluation(s) Reevaluation #1: 07/05/18 11:25 PA supervision: I personally saw and examined the patient. I reviewed and agree with the PA findings including all diagnostic interpretations and treatment plans is written unless otherwise stated. (Chetan Nuñez) Medical Decision Making <Bobby Bonner - Last Filed: 07/05/18 11:19> <Chetan Nuñez - Last Filed: 07/05/18 11:25> - Medical Decision Making 73-year-old female presented for left leg pain, concern for DVT. Patient did HOURS negative for acute DVT. Patient may have a leg strain. Patient will continue conservative treatment including Tylenol and Motrin. Return parameters were discussed. (Bobby Bonner) Disposition Is patient prescribed a controlled substance at d/c from ED?: No Time of Disposition: 11:20 <Bobby Bonner - Last Filed: 07/05/18 11:19> <Chetan Nuñez - Last Filed: 07/05/18 11:25> Clinical Impression: Leg pain, left Disposition: HOME SELF-CARE Condition: Stable Instructions: Leg Pain (ED) Additional Instructions: Please return to the Emergency Department if symptoms worsen or any other concerns. Referrals: Anita Jordan MD [Primary Care Provider] - 1-2 days
--- NOTE | 2018-07-05 11:18 | US ---
EXAMINATION TYPE: US venous doppler duplex LE LT DATE OF EXAM: 07/05/2018 10:30 AM COMPARISON: NONE CLINICAL HISTORY: 73-year-old female Pain. SIDE PERFORMED: Left TECHNIQUE: The lower extremity deep venous system is examined utilizing real time linear array sonog binta with graded compression, doppler sonography and color-flow sonography. FINDINGS: VESSELS IMAGED: External Iliac Vein (EIV) Common Femoral Vein Deep Femoral Vein Greater Saphenous Vein * Femoral Vein Popliteal Vein Small Saphenous Vein * Proximal Calf Veins (* superficial vessels) Left Leg: Negative for DVT IMPRESSION: No evidence for DVT within the left lower extremity imaged from the groin to the upper calf.
== END 2018-07-05 11:36 | disposition home or self-care (01) ==
LOC: EC 10:08
DX: M79.605 Pain in left leg (principal); K21.9 Gastro-esophageal reflux disease without esophagitis; I10 Essential (primary) hypertension; M19.90 Unspecified osteoarthritis, unspecified site; E07.9 Disorder of thyroid, unspecified; Z96.652 Presence of left artificial knee joint; Z79.52 Long term (current) use of systemic steroids; Z79.899 Other long term (current) drug therapy; Z88.1 Allergy status to other antibiotic agents; Z88.5 Allergy status to narcotic agent; Z91.048 Other nonmedicinal substance allergy status
CPT/HCPCS: 99283

== ENCOUNTER 2019-05-30 23:22 | Emergency (ER) | payer MEDICARE ==
[2019-05-30 23:31] VITALS: TEMP 98.2
--- NOTE | 2019-05-30 23:39 | ED ---
Recheck HPI - General Chief Complaint: Recheck/Abnormal Lab/Rx Stated Complaint: Elevated BP Time Seen by Provider: 05/30/19 23:38 Source: patient, RN notes reviewed, old records reviewed Mode of arrival: ambulatory Limitations: no limitations - History of Present Illness Initial Comments: THis is a 73 year old femaleto the ED for rewcheck abn Blood Preessure. Patient has a history of high blood pressure, patient has a blood pressure check today for health maintenance, asymptomatic. Patient blood pressure was elevated. She called PCP and took BP medication. BP improved She took her BP again before bed and it was elevated causing her great anxiety and causing her to come to the ED again. Patine reains asymptomatic. Patient also complaining of Left calf pain w concern for DVT sp knee replacement 1 year ago,.. MD Complaint: abnormal lab (abnormal BP) -: unknown Returns Today for: Called Because of Abnormal Lab/Test (increased BP) Symptoms Since Prior Visit: no new symptoms Associated Symptoms: none Treatments Prior to Arrival: other medications - Related Data Home Medications Medication Instructions Recorded Confirmed Esomeprazole Magnesium [NexIUM] 20 mg PO DAILY 09/01/15 07/05/18 Vits A,C,E/Lutein/Minerals 1 tab PO DAILY 09/01/15 07/05/18 [Ocuvite with Lutein Tablet] Fluticasone Nasal [place] [Flonase 2 spr EA NOSTRIL DAILY PRN 08/05/17 07/05/18 Nasal [place]] L.acidoph,Paracasei, B.lactis 1 cap PO DAILY 08/05/17 07/05/18 [Probiotic] Multivitamins, Thera [Multivitamin 1 tab PO DAILY 08/05/17 07/05/18 (formulary)] cloNIDine HCL [Catapres] 0.1 mg PO HS 08/05/17 07/05/18 cycloSPORINE [Restasis] 1 drop BOTH EYES BID 08/05/17 07/05/18 Losartan Potassium [Cozaar] 25 mg PO DAILY 09/08/17 07/05/18 Albuterol Sulfate [Proair 1 puff PO RT-QID PRN 03/14/18 07/05/18 Respiclick] Loratadine [Claritin] 10 mg PO DAILY 03/14/18 07/05/18 Meloxicam 15 mg PO DAILY 03/14/18 07/05/18 Ranitidine HCl 150 mg PO BID 03/14/18 07/05/18 Aspirin [Adult Low Dose Aspirin EC] 81 mg PO DAILY 03/21/18 07/05/18 Cholecalciferol [Vitamin D3] 1,000 unit PO DAILY 03/21/18 07/05/18 Allergies Allergy/AdvReac Type Severity Reaction Status Date / Time hydrocodone Allergy Nausea & Verified 05/30/19 23:31 Vomiting adhesive tape AdvReac skin Verified 05/30/19 23:31 irritation erythromycin base AdvReac Nausea Verified 05/30/19 23:31 Review of Systems ROS Statement: Those systems with pertinent positive or pertinent negative responses have been documented in the HPI. ROS Other: All systems not noted in ROS Statement are negative. Past Medical History Past Medical History: CVA/TIA, Eye Disorder, GERD/Reflux, Hypertension, Osteoarthritis (OA), Skin Disorder, Thyroid Disorder Additional Past Medical History / Comment(s): Hx migraines. Hiatal Hernia. Eczema, hx precancer skin lesions. ALYSON Corneal Dystrophy, Macular Degeneration. TIA 09/2017. VOCAL CORD PROB SINCE THYROID SURG, HOARSNESS, OCC DYSPHAGIA. OSTEOPOROSIS. HAS CAROTID US ON 03/16/18, CLEARANCE PENDING. History of Any Multi-Drug Resistant Organisms: None Reported Past Surgical History: Cholecystectomy, Hysterectomy, Joint Replacement, Orthopedic Surgery Additional Past Surgical History / Comment(s): Rt knee meniscus repair. Goiter removed and Partial Thyroidectomy. Left and right total knee replacement Past Anesthesia/Blood Transfusion Reactions: No Reported Reaction Additional Past Anesthesia/Blood Transfusion Reaction / Comment(s): damage to vocal cords from thyroid surgery- told she should not have tube down her throat unless absolutely necessary Past Psychological History: No Psychological Hx Reported Smoking Status: Never smoker Past Alcohol Use History: None Reported Past Drug Use History: None Reported - Past Family History Mother Family Medical History: Cancer, Hypertension Additional Family Medical History / Comment(s): uterine Father Family Medical History: Coronary Artery Disease (CAD), Hypertension Additional Family Medical History / Comment(s): CABG General Exam Limitations: no limitations General appearance: alert, in no apparent distress Head exam: Present: atraumatic, normocephalic, normal inspection Eye exam: Present: normal appearance, PERRL, EOMI. Absent: scleral icterus, conjunctival injection, periorbital swelling ENT exam: Present: normal exam, mucous membranes moist Neck exam: Present: normal inspection. Absent: tenderness, meningismus, lymphadenopathy Respiratory exam: Present: normal lung sounds bilaterally. Absent: respiratory distress, wheezes, rales, rhonchi, stridor Cardiovascular Exam: Present: regular rate, normal rhythm, normal heart sounds. Absent: systolic murmur, diastolic murmur, rubs, gallop, clicks GI/Abdominal exam: Present: soft, normal bowel sounds. Absent: distended, tenderness, guarding, rebound, rigid Extremities exam: Present: normal inspection, full ROM, normal capillary refill. Absent: tenderness, pedal edema, joint swelling, calf tenderness Back exam: Present: normal inspection Neurological exam: Present: alert, oriented X3, CN II-XII intact Psychiatric exam: Present: normal affect, normal mood Skin exam: Present: warm, dry, intact, normal color. Absent: rash Course Vital Signs 05/30/19 05/31/19 23:28 00:03 Temperature 98.2 F Pulse Rate 70 68 Respiratory 18 17 Rate Blood Pressure 176/93 183/94 O2 Sat by Pulse 98 96 Oximetry - Reevaluation(s) Reevaluation #1: 05/31/19 00:13 medical record is reviewed. Reevaluation #2: 05/31/19 00:13 BP is currently controlled Medical Decision Making - Medical Decision Making 73 female to the ED With elevated BP will start new BP med and follow up w PCP - Radiology Data Radiology results: report reviewed (US LLE negative for DVT), image reviewed Disposition Clinical Impression: Hypertension Disposition: HOME SELF-CARE Condition: Good Instructions (If sedation given, give patient instructions): Hypertension (ED) Is patient prescribed a controlled substance at d/c from ED?: No Referrals: Anita Jordan MD [Primary Care Provider] - 1-2 days
[2019-05-30] MEDS ORDERED: LABETALOL 200 MG TAB PO STA (23:58)
[2019-05-31 00:03] VITALS: PULSE 68
[2019-05-31 00:35] VITALS: BP 152/86; RESP 16
--- NOTE | 2019-05-31 02:01 | US ---
EXAM: US Duplex Left Lower Extremity Veins CLINICAL HISTORY: ITS.REASON US Reason: Pain TECHNIQUE: Real-time duplex ultrasound scan of the left lower extremity veins integrating B-mode two-dimensional vascular structure, Doppler spectral analysis, color flow Doppler imaging and compression. COMPARISON: No relevant prior studies available. FINDINGS: Deep veins: No DVT in the visualized common femoral, femoral, proximal deep femoral or popliteal veins. The veins demonstrate normal color flow, are normally compressible, with normal phasic flow and/or augmentation response. Superficial veins: No thrombus in the visualized great saphenous vein. Soft tissues: No popliteal cyst. IMPRESSION: No DVT.
== END 2019-05-31 00:45 | disposition home or self-care (01) ==
LOC: EC 23:22
DX: I10 Essential (primary) hypertension (principal); M79.662 Pain in left lower leg; K21.9 Gastro-esophageal reflux disease without esophagitis; M19.90 Unspecified osteoarthritis, unspecified site; Z88.1 Allergy status to other antibiotic agents; Z88.5 Allergy status to narcotic agent; Z91.048 Other nonmedicinal substance allergy status; Z79.1 Long term (current) use of non-steroidal anti-inflammatories (NSAID); Z79.82 Long term (current) use of aspirin; Z79.899 Other long term (current) drug therapy; Z86.73 Personal history of transient ischemic attack (TIA), and cerebral infarction without residual deficits; Z96.653 Presence of artificial knee joint, bilateral; Z82.49 Family history of ischemic heart disease and other diseases of the circulatory system
CPT/HCPCS: 99284

== ENCOUNTER → 2019-06-23 | Day surgery (SDC) | payer MEDICARE ==
[2019-06-20 14:02] VITALS: BMI 38.1
[~2019-06-23] MED LIST changes: -ACETAMINOPHEN TAB 500 MG TAB PO ONE; -DEXAMETHASONE SOD PHOSPHATE 10 MG/ML 1 ML VIAL IV ONE; +LACTATED RINGERS 1,000 ML IV SCH; -MELOXICAM 7.5 MG TAB PO ONE; -MIDAZOLAM 2 MG/2 ML VIAL IV PRN; -ONDANSETRON 4 MG/2 ML VIAL IVP ONE; +PROPOFOL 10 MG/ML 20 ML VIAL IV ONE; -TRANEXAMIC ACID 1,000 MG in SODIUM CHLORIDE 0.9% 50 ML IVPB ONE; -ceFAZolin IN SWFI 2 GM/20 ML SYRINGE IVP ONE; -fentaNYL (PF) 50 MCG/ML 2 ML AMP IV PRN
[2019-06-23 12:08] VITALS: RESP 16; TEMP 98.7
--- NOTE | 2019-06-23 13:20 | P.PCN ---
Date of Procedure: 06/23/19 Procedure(s) Performed: BRIEF HISTORY: Patient is a 73-year-old pleasant female scheduled for an elective colonoscopy as a part of screening for colorectal neoplasia. She has strong family history of colon cancer diagnosed and grandfather on maternal side and grandmother on maternal side PROCEDURE PERFORMED: Colonoscopy with snare polypectomy. PREOPERATIVE DIAGNOSIS: Screening for colon cancer. IV sedation per Anesthesia. PROCEDURE: After informed consent was obtained, the patient, was brought into the endoscopy unit. IV sedation was administered by Anesthesia under continuous monitoring. Digital rectal examination was normal. Initially the Olympus CF-160 flexible video colonoscope was then inserted in the rectum, gradually advanced into the cecum without any difficulty. Careful examination was performed as the scope was gradually being withdrawn. Ileocecal valve and the appendiceal orifice were visualized and appeared normal. Prep was excellent. Mucosa of the cecum, ascending colon, transverse colon, descending colon, appeared normal. Sigmoid: There was a 5-6 mm polyp that was removed by snare polypectomy. Rest of the sigmoid colon, and rectum appeared normal. Scattered left sided diverticulosis seen. Retroflexion was performed in the rectum and no lesions were seen. The patient tolerated the procedure well. IMPRESSION: 5-6 mm; sigmoid colon polyp status post polypectomy Scattered left-sided diverticula RECOMMENDATIONS: Findings of this examination were discussed with the patient as well as her family. She was advised to follow with the biopsy results and have a repeat surveillance colonoscopy in 5 years from now..
[2019-06-23 13:39] VITALS: BP 132/71; PULSE 54
== END ==
LOC: ORWHC2ENDO 11:43
PROVIDERS: ATTEND Internal Medicine Gastroenterology
DX: Z12.11 Encounter for screening for malignant neoplasm of colon (principal); K51.40 Inflammatory polyps of colon without complications; K57.30 Diverticulosis of large intestine without perforation or abscess without bleeding; K63.89 Other specified diseases of intestine; Z80.0 Family history of malignant neoplasm of digestive organs; I10 Essential (primary) hypertension; E07.9 Disorder of thyroid, unspecified; Z86.73 Personal history of transient ischemic attack (TIA), and cerebral infarction without residual deficits; M19.90 Unspecified osteoarthritis, unspecified site; K44.9 Diaphragmatic hernia without obstruction or gangrene; Z88.1 Allergy status to other antibiotic agents; Z79.899 Other long term (current) drug therapy; Z88.5 Allergy status to narcotic agent; Z91.09 Other allergy status, other than to drugs and biological substances
CPT/HCPCS: 88305; 45385; J2704

== ENCOUNTER 2019-08-10 10:26 | Day surgery (SDC) | payer MEDICARE ==
[2019-08-09 12:09] VITALS: BMI 38.7
[~2019-08-10 10:26] MED LIST changes: +LIDOCAINE 1% 20 ML VIAL (10MG/ML) FOR IV START INTRADERMA PRN; -PROPOFOL 10 MG/ML 20 ML VIAL IV ONE
[2019-08-10 10:45] VITALS: TEMP 96.9
[2019-08-10] MEDS ORDERED: fentaNYL (PF) 50 MCG/ML 2 ML AMP ONE (11:06)
[2019-08-10] MEDS ORDERED: LIDOCAINE 1% INJ 10MG/ML (20 ML MDV) ONE (11:06)
[2019-08-10] MEDS ORDERED: PROPOFOL 10 MG/ML 20 ML VIAL IV ONE (11:06)
[2019-08-10] MEDS ORDERED: MIDAZOLAM 2 MG/2 ML VIAL ONE (11:06)
--- NOTE | 2019-08-10 11:16 | P.PCN ---
Date of Procedure: 08/10/19 Procedure(s) Performed: BRIEF HISTORY: Patient is a 74-year-old, pleasant, female, scheduled for an upper endoscopy as a part of evaluation long-standing history of GERD. Recently has been having some chronic hoarseness and occasional dysphagia to solids. She is maintained on Nexium and Zantac for many years. PROCEDURE PERFORMED: Esophagogastroduodenoscopy. PREOPERATIVE DIAGNOSIS: Long-standing history of GERD/intermittent dysphagia to solids and occasional hoarseness. IV sedation per anesthesia. PROCEDURE: After informed consent was obtained, the patient was brought into the endoscopy unit. IV sedation was administered by Anesthesia under continuous monitoring. Initially the Olympus GIF-140 video endoscope was inserted into the mouth. Esophagus intubated without any difficulty. It was gradually advanced into the stomach and duodenum and carefully examined. The bulb and the second part of the duodenum appeared normal. The scope at this time was withdrawn to the stomach, adequately insufflated with air, and upon careful examination, mucosa of the antrum, had patchy areas of erythema which was biopsied. The body, cardia and the fundus appeared normal. The scope was then withdrawn into the esophagus. The GE junction was located at 36 cm from the incisors. Small to moderate size hiatal hernia noted. The esophagus appeared normal. There were no erosions or ulcerations seen , biopsies were done from the distal esophagus and the patient tolerated the procedure well. IMPRESSION: 1. Small sliding type hiatal hernia but no evidence of esophagitis, esophageal stricture or Iyer's esophagus. 2. Mild antral gastritis. RECOMMENDATIONS: The findings of this examination were discussed with the patient as well as her family. She was advised to follow with the biopsy results. She will continue with Nexium 40 mg daily and Zantac at bedtime and follow antireflux measures..
[2019-08-10 11:40] VITALS: PULSE 77
[2019-08-10 11:41] VITALS: BP 139/77; RESP 18
== END 2019-08-10 11:52 | disposition home or self-care (01) ==
LOC: ORWHC2ENDO 10:26
PROVIDERS: ATTEND Internal Medicine Gastroenterology
DX: K21.0 Gastro-esophageal reflux disease with esophagitis (principal); K29.50 Unspecified chronic gastritis without bleeding; K44.9 Diaphragmatic hernia without obstruction or gangrene; I10 Essential (primary) hypertension; M19.90 Unspecified osteoarthritis, unspecified site; G43.909 Migraine, unspecified, not intractable, without status migrainosus; H35.30 Unspecified macular degeneration; Z79.1 Long term (current) use of non-steroidal anti-inflammatories (NSAID); Z79.82 Long term (current) use of aspirin; Z79.899 Other long term (current) drug therapy; Z88.1 Allergy status to other antibiotic agents; Z88.5 Allergy status to narcotic agent; Z91.09 Other allergy status, other than to drugs and biological substances
CPT/HCPCS: 88305; 43239; J2250; J2001; J3010; J2704

== ENCOUNTER → 2019-10-10 | Outpatient (CLI) | payer MEDICARE ==
[~2019-10-10] MED LIST changes: -LACTATED RINGERS 1,000 ML IV SCH; -LIDOCAINE 1% 20 ML VIAL (10MG/ML) FOR IV START INTRADERMA PRN; +REGADENOSON 0.4 MG/5 ML SYRINGE IV ONE
--- NOTE | 2019-10-10 10:59 | NM ---
EXAMINATION TYPE: NM stress lexiscan cardiolite DATE OF EXAM: 10/10/2019 COMPARISON: NONE HISTORY: Pain TECHNIQUE: After the intravenous administration of 10.59 mCi Tc 99m Sestamibi - Cardiolite resting S PECT images acquired 45 minutes post injection. The patient received 0.4mg Lexiscan, 26 mCi Tc 99m Sestamibi - Stress images obtained 30 minutes post injection FINDINGS: Review of stress and rest SPECT images demonstrates no distinct perfusion abnormality. Gated analysi s shows normal wall motion with an estimated left ventricular ejection fraction of 67 %. IMPRESSION: No scintigraphic evidence for reversible ischemia.
--- NOTE | 2019-10-10 11:47 | EST ---
EXERCISE STRESS AGE: 74 SEX: F HT: 66" WT: 240 PROTOCOL: Lexiscan Cardiolite Stress Test HEART RATE REST: 57 BLOOD PRESSURE REST: 147/96 MAXIMUM HEART RATE ACHIEVED: 77 MAXIMUM BLOOD PRESSURE: 147/96 INDICATIONS: Chest pain, difficulty in breathing, palpitations. CLINICAL INFORMATION: Baseline EKG shows sinus rhythm, normal axis, normal intervals. Patient was given intravenous Lexiscan as per protocol. Did not have chest pain or diagnostic ST-segment depression. CONCLUSION: 1. Negative stress test by EKG criteria. 2. Cardiolite portion of the stress test will be reported separately. MMODL / IJN: [id number] /
== END | disposition home or self-care (01) ==
LOC: RADNMMAIN 08:21
PROVIDERS: ATTEND Family Medicine
DX: R07.9 Chest pain, unspecified (principal)
CPT/HCPCS: 78452; 93017

== ENCOUNTER → 2019-10-20 | Outpatient (CLI) | payer MEDICARE ==
--- NOTE | 2019-10-20 13:59 | ECHOF ---
Referral Reason:R06.09 Dyspnea MEASUREMENTS -------- HEIGHT: 168.9 cm WEIGHT: 111.1 kg BP: RVIDd: 4.1 cm (< 3.3) IVSd: 1.5 cm (0.6 - 1.1) LVIDd: 3.7 cm (3.9 - 5.3) LVPWd: 1.6 cm (0.6 - 1.1) IVSs: 2.1 cm LVIDs: 2.2 cm LVPWs: 1.8 cm LAESV Index (A-L): 43.78 ml/m Ao Diam: 3.4 cm (2.0 - 3.7) AV Cusp: 1.9 cm (1.5 - 2.6) LA Diam: 4.7 cm (2.7 - 3.8) MV EXCURSION: 15.119 mm (> 18.000) MV EF SLOPE: 73 mm/s (70 - 150) EPSS: 0.7 cm MV E Bjorn: 0.42 m/s MV DecT: 224 ms MV A Bjorn: 0.66 m/s MV E/A Ratio: 0.63 RAP: 5.00 mmHg RVSP: 27.57 mmHg FINDINGS -------- Sinus rhythm. This was a technically good study. The left ventricular size is normal. There is moderate concentric left ventricular hypertrophy. O verall left ventricular systolic function is normal with, an EF between 60 - 65 %. The diastolic fi lling pattern is normal for the age of the patient 11.61. The right ventricle is mild to moderately enlarged. LA is severely dilated >40 ml/m2 The right atrium is mildly enlarged. Aneurysmal Interatrial septum. The aortic valve is trileaflet and appears structurally normal. There is mild aortic valve sclerosi s. There is no evidence of aortic regurgitation. There is no evidence of aortic stenosis. Mild mitral annular calcification present. Mild mitral regurgitation is present. Mild tricuspid regurgitation present. There is no evidence of pulmonary hypertension. The right v entricular systolic pressure, as measured by Doppler, is 27.57mmHg. There is no pulmonic regurgitation present. The aortic root size is normal. The inferior vena cava is mildly dilated. There is no pericardial effusion. CONCLUSIONS -------- 1. Sinus rhythm. 2. This was a technically good study. 3. The left ventricular size is normal. 4. There is moderate concentric left ventricular hypertrophy. 5. Overall left ventricular systolic function is normal with, an EF between 60 - 65 %. 6. The diastolic filling pattern is normal for the age of the patient 11.61 7. The right ventricle is mild to moderately enlarged. 8. LA is severely dilated >40 ml/m2 9. The right atrium is mildly enlarged. 10. Aneurysmal Interatrial septum. 11. The aortic valve is trileaflet and appears structurally normal. 12. There is mild aortic valve sclerosis. 13. There is no evidence of aortic regurgitation. 14. There is no evidence of aortic stenosis. 15. Mild mitral annular calcification present. 16. Mild mitral regurgitation is present. 17. Mild tricuspid regurgitation present. 18. There is no evidence of pulmonary hypertension. 19. The right ventricular systolic pressure, as measured by Doppler, is 27.57mmHg. 20. There is no pulmonic regurgitation present. 21. The aortic root size is normal. 22. The inferior vena cava is mildly dilated. 23. There is no pericardial effusion. LIFE SUPPORT TECHNICIAN: Usha Serrano RDCS
== END | disposition home or self-care (01) ==
LOC: RADECHMAIN 11:12
PROVIDERS: ATTEND Family Medicine
DX: I08.3 Combined rheumatic disorders of mitral, aortic and tricuspid valves (principal)
CPT/HCPCS: 93306

== ENCOUNTER → 2020-07-12 | Outpatient (CLI) | payer MEDICARE ==
--- NOTE | 2020-07-15 09:27 | US ---
EXAMINATION TYPE: US carotid duplex BILAT DATE OF EXAM: 07/12/2020 COMPARISON: NONE CLINICAL HISTORY: 75-year-old female H53.9 VISUAL DISTURBANCE. Vision problems. TECHNIQUE: Carotid duplex ultrasound examination. Indirect Doppler criteria was utilized. FINDINGS: EXAM MEASUREMENTS: RIGHT: Peak Systolic Velocity (PSV) cm/sec ----- Right CCA: 47.4 ----- Right ICA: 50.3 ----- Right ECA: 57.5 ICA/CCA ratio: 1.1 RIGHT: End Diastole cm/sec ----- Right CCA: 15.4 ----- Right ICA: 18.3 ----- Right ECA: 11.0 LEFT: Peak Systolic Velocity (PSV) cm/sec ----- Left CCA: 112.8 ----- Left ICA: 66.3 ----- Left ECA: 76.4 ICA/CCA ratio: 0.6 LEFT: End Diastole cm/sec ----- Left CCA: 25.6 ----- Left ICA: 22.7 ----- Left ECA: 8.1 VERTEBRALS (direction of flow): Right Vertebral: Antegrade Left Vertebral: Antegrade Rhythm: Normal No significant stenosis seen IMPRESSION: No hemodynamically significant stenosis appreciated in either internal carotid artery. Criteria for Assigning % of Stenosis / Diameter reduction (Estimation based on the indirect measurements of the internal carotid artery velocities (ICA PSV). 1. Normal (no stenosis)=ICA PSV < 125 cm/s: ratio < 2.0: ICA EDV<40 cm/s. 2. Less than 50% stenosis=ICA PSV < 125 cm/s: ratio < 2.0: ICA EDV<40 cm/s. 3. 50 to 69% stenosis=ICA PSV of 125 to 230 cm/s: ration 2.0 ? 4.0: ICA EDV 40-100 cm/s. 4. Greater than 70% stenosis to near occlusion= ICA PSV > 230 cm/s: ratio > 4.0: ICA EDV > 100 cm/s. 5. Near occlusion= ICA PSV velocities may be low or undetectable: variable ratio and ICA EDV. 6. Total occlusion=unable to detect flow.
--- NOTE | 2020-07-15 09:31 | US ---
EXAMINATION TYPE: US thyroid st tissue head/neck DATE OF EXAM: 07/12/2020 COMPARISON: NONE CLINICAL HISTORY: 75-year-old female E04.1 NON TOXIC SINGLE THYROID NODULE. Thyroid nodule TECHNIQUE: Multiple sonographic images of the thyroid gland are obtained. FINDINGS: GLAND SIZE: Right Lobe: 2.1 x 1.1 x 1.2 cm Overall Parenchyma: heterogenous Left Lobe: 5.3 x 1.8 x 1.8 cm Overall Parenchyma: heterogeneous Isthmus Thickness: .2 cm NODULES RIGHT: # of nodules measured on right: 0 LEFT: # of nodules measured on left: 2 1. 1.1 X .8 x 1.3 cm mixed , primarily cystic nodule at the lower pole with well-defined margins; . This nodule is wider than tall and shows intranodular vascularity. Prior size: No prior 2. 1.1 X .5 x 1.0 cm mixed, spongiform-appearing nodule at the upper pole with well-defined margins ; . This nodule is wider than tall and shows intranodular vascularity. Prior size: No prior ISTHMUS: # of nodules measured in the isthmus: 0 Bilateral neck scanned, no evidence of lymphadenopathy. IMPRESSION: 1. A 1.3 cm mixed, primarily cystic nodule at the left lower pole. 2. A 1.1 cm mixed, spongiform-appearing nodule at the left upper pole. 3. Follow-up can be performed.
== END | disposition home or self-care (01) ==
LOC: RADUSWWP 15:22
PROVIDERS: ATTEND Family Medicine
DX: E04.1 Nontoxic single thyroid nodule (principal); H53.9 Unspecified visual disturbance
CPT/HCPCS: 76536; 93880

== ENCOUNTER 2020-08-23 08:47 | Day surgery (SDC) | payer MEDICARE ==
[2020-08-21 10:32] VITALS: BMI 39.1
[2020-08-23] MEDS ORDERED: SODIUM CHLORIDE 0.9% 500 ML 500 ML IV ONE (09:01)
[2020-08-23] MEDS ORDERED: fentaNYL (PF) 50 MCG/ML 2 ML AMP ONE (09:15)
[2020-08-23 09:19] VITALS: TEMP 98.9
[2020-08-23] MEDS ORDERED: BENZOCAINE SPRAY 1 CAN MUCOUS MEM ONE ×2 (09:26→09:30)
[2020-08-23] MEDS ORDERED: MIDAZOLAM 2 MG/2 ML VIAL IVP ONE ×3 (09:32→09:35)
[2020-08-23] MEDS ORDERED: fentaNYL (PF) 50 MCG/ML 2 ML AMP IVP ONE (09:33)
[2020-08-23 09:49] LABS: Calcium 9.3 mg/dL (8.4-10.2); Potassium 4.4 mmol/L (3.5-5.1)
--- NOTE | 2020-08-23 10:04 | ECHOT ---
TRANSESOPHAGEAL ECHOCARDIOGRAM TRANSESOPHAGEAL ECHOCARDIOGRAM: DATE OF SERVICE: 08/23/2020. PERFORMING PHYSICIAN: Jeremie Oquendo MD. PROCEDURE PERFORMED: Transesophageal echocardiogram. INDICATION: This is a pleasant 75-year-old female patient who was diagnosed recently with TIA and she was seen by her prenatal teacher who recommended doing a workup for stroke. The patient underwent an event monitor which showed no evidence of atrial fibrillation. Subsequently, she scheduled to undergo a transesophageal echocardiogram to rule out any cardiac source of embolization. COMPLICATION: None. LEVEL OF SEDATION: Moderate with sedation length of 15 minutes. PROCEDURE DESCRIPTION: After obtaining an informed consent, the patient was brought to the transesophageal echocardiogram suite. A pulse oximetry and heart rate monitors were attached to the patient. Subsequently, the transesophageal echocardiogram probe was advanced through the bite guard to the mid esophageal where 2D echocardiogram images as well as the transesophageal echocardiogram probe was advanced through the bite guard to the mid esophageal where 2D echocardiogram images as well as continuous and pulse-wave Doppler images were obtained from various angles. Particular attention was made to the interatrial septum. The procedure was completed without any complication. FINDINGS: The left ventricular dimension and systolic function appeared to be within normal limits. The ejection fraction appeared to be in the range of 50% to 55%. The right ventricle appeared to be mildly dilated. The left atrium and right atrium are severely dilated. The aortic valve appeared to be trileaflet valve without stenosis or regurgitation. The mitral valve seems to be mildly thickened with mild MR. There was mild tricuspid regurgitation seen. The pulmonary artery systolic pressure was not calculated. The interatrial septum was well visualized and seems to be aneurysmal with evidence of fenestrated septum with evidence of PFO and ASD and bidirectional shunt. CONCLUSION: 1. Fenestrated interatrial septum with evidence of patent foramen ovale and atrial septal defect and bidirectional shunt. The septum is very aneurysmal. 2. Severe biatrial enlargement. 3. Normal left ventricular dimension and systolic function. 4. Normal right ventricular dimension and systolic function. 5. Overall intact intracardiac valves. 6. No evidence of pericardial effusion. MMODL / IJN: [id number] /
[2020-08-23 11:48] VITALS: BP 119/69; PULSE 65; RESP 16
--- NOTE | 2020-08-27 08:40 | CDI ---
Outpatient Documentation Clarification Form Date: 08/27/20 CDS/Slide Attendant Name: Ivone Armstrong Phone: If any questions, call Angelita Cain Front Office Secretary at [phone] Patient Name: Alexandria Alvarez Admit Date: 08/23/20 Discharge Date: 08/23/20 ATTENTION: The [facility] Coding Staff appreciate your assistance in clarifying documentation. Please respond to the clarification below the line at the bottom and electronically sign. The [facility] Coding staff will review the response and follow-up if needed. Please note: Queries are made part of the Legal Health Record. If you have any questions, please contact the Front Office Secretary. Dear Abhi Henry provide clarification for the procedure performed. The procedure note documents that the echocardiography with 2-D echo and the pulse wave was performed. Charges on the account signify that the third aspect of the test was performed. Please clarify which of the following we performed. [id number] - echocardiograph, transesophageal, real time with image documentation (2D) (with or without M-mode recording); including probe placement, image acquisition and report [id number] - Doppler echocardiography, pulsed waive and/or continuous wave with spectral display [id number] - Doppler echocardiography color flow velocity mapping. Thank you for your kind consideration. 2 D and [id number] MTDD
== END 2020-08-23 11:01 | disposition home or self-care (01) ==
LOC: CATHCVL 08:47
PROVIDERS: ATTEND Internal Medicine Interventional Cardiology
DX: Q21.1 Atrial septal defect (principal); I25.3 Aneurysm of heart; I07.1 Rheumatic tricuspid insufficiency; I10 Essential (primary) hypertension; I73.9 Peripheral vascular disease, unspecified; Z82.49 Family history of ischemic heart disease and other diseases of the circulatory system; Z79.1 Long term (current) use of non-steroidal anti-inflammatories (NSAID); Z79.82 Long term (current) use of aspirin; Z79.899 Other long term (current) drug therapy; Z88.5 Allergy status to narcotic agent; Z88.1 Allergy status to other antibiotic agents; Z91.040 Latex allergy status
CPT/HCPCS: 93312; 93320; 80048; J2250; J3010; 93325

== ENCOUNTER 2020-09-11 05:37 | Day surgery (SDC) | payer MEDICARE ==
[2020-09-10 09:31] VITALS: BMI 39.4
[2020-09-11] MEDS ORDERED: ATORVASTATIN 80 MG TAB PO STA (05:57)
[2020-09-11] MEDS ORDERED: ASPIRIN 325 MG TAB PO STA (05:57)
[2020-09-11] MEDS ORDERED: ALPRAZolam 0.25 MG TAB PO PRN (05:57)
[2020-09-11] MEDS ORDERED: NITROGLYCERIN SL TABS 0.4 MG TAB SUBLINGUAL PRN (05:57)
[2020-09-11] MEDS ORDERED: ALPRAZolam 0.5 MG TAB PO PRN (05:57)
[2020-09-11] MEDS ORDERED: SODIUM CHLORIDE 0.9% 1,000 ML IV ONE (06:28)
[2020-09-11] MEDS ORDERED: LEVOTHYROXINE 25 MCG TAB PO SCH (06:30)
[2020-09-11] MEDS ORDERED: SODIUM CHLORIDE 0.9% 1,000 ML in EMPTY BAG 1 BAG IV ONE (06:30)
[2020-09-11 07:08] LABS: Basophils # (A) 0.1 k/uL (0-0.2); Basophils % (A) 1 %; Eosinophils # (A) 0.3 k/uL (0-0.7); Eosinophils % (A) 4 %; HCT 43.5 % (34.0-46.0); HGB 13.1 gm/dL (11.4-16.0); Hypochromasia Marked; Lymphocytes # (A) 1.7 k/uL (1.0-4.8); Lymphocytes % (A) 21 %; MCH 30.2 pg (25.0-35.0); MCHC 30.1 g/dL (31.0-37.0); MCV 100.1 fL (80.0-100.0); Mean Platelet Volume 8.1; Monocytes # (A) 0.5 k/uL (0-1.0); Monocytes % (A) 6 %; Neutrophils # (A) 5.5 k/uL (1.3-7.7); Neutrophils % (A) 65 %; Platelet Count 298 k/uL (150-450); RBC 4.34 m/uL (3.80-5.40); RDW 12.6 % (11.5-15.5); WBC 8.4 k/uL (3.8-10.6)
[2020-09-11 07:22] LABS: Calcium 8.9 mg/dL (8.4-10.2)
[2020-09-11 07:23] LABS: Potassium 4.8 mmol/L (3.5-5.1)
[2020-09-11] MEDS ORDERED: MIDAZOLAM 2 MG/2 ML VIAL IVP ONE (07:40)
[2020-09-11] MEDS ORDERED: fentaNYL (PF) 50 MCG/ML 2 ML AMP IVP ONE (07:41)
[2020-09-11] MEDS: LIDOCAINE 1% INJ 10MG/ML (20 ML MDV) SQ ONE ×2 (07:44→07:47)
[2020-09-11] MEDS ORDERED: HEPARIN SODIUM 1,000 UN/ML (10ML VL) IV ONE (07:51)
[2020-09-11] MEDS ORDERED: FLUTICASONE 50MCG/SPRAY NASAL 16GM EA NOSTRIL PRN (08:56)
[2020-09-11] MEDS ORDERED: IOPAMIDOL-250 50ML BTL INTRAARTER ONE (09:00)
[2020-09-11] MEDS ORDERED: CLOPIDOGREL 75 MG TAB PO SCH (09:00)
[2020-09-11] MEDS ORDERED: SODIUM CHLORIDE 0.9% 1,000 ML IV SCH (09:00)
[2020-09-11] MEDS ORDERED: CLOPIDOGREL 75 MG TAB PO ONE (09:01)
--- NOTE | 2020-09-11 09:10 | P.PCN ---
Date of Procedure: 09/11/20 Operative Findings: PERCUTANEOUS CLOSURE OF PATENT FORAMEN OVALE (PFO) PERFORMING PHYSICIAN: Jeremie Oquendo MD, [facility] PROCEDURE PERFORMED: 1. Successful percutaneous closure of fenestrated atrial septal defect (ASD) using 35 mm Cribriform Amplatzer Occluder with an excellent results and without any residual shunt. 2. Intracardiac echocardiogram imaging. 3. Right atrial angiogram. INDICATION: This is a very pleasant 75-year-old female patient was diagnosed SFA with a stroke. She underwent transesophageal echocardiogram which revealed fenestrated interatrial septum with evidence of ASD and PFO. She was brought today to undergo percutaneous closure. APPROACH: Right common femoral vein and left common femoral vein COMPLICATION: None. LEVEL OF SEDATION: Moderate with sedation length of 58 minutes. PROCEDURE DESCRIPTION: After obtaining informed consent, the patient was brought to the cardiac track laborer. The right common femoral vein was cannulated x2 using micropuncture technique under ultrasound guidance, the micropuncture wire passed easily, then I placed two 8- [place] sheath in the right groin. Subsequently I cannulated the left common femoral vein with the same technique and I placed an 8-[place] sheath there as well. At that point, anticoagulation was initiated using heparin and the patient was given a bolus of 10,000 units of heparin IV with continuous ACT monitoring throughout the procedure. After that, the intracardiac echocardiogram probe was advanced through one of the venous sheath all the way to the right atrium where we did interrogate the interatrial septum and identified the patent foramen ovale which was measured about 35 mm. Subsequently, I did cross the patent foramen ovale using 0.035 J-wire with the backup support of multipurpose catheter. The wire was advanced all the way to the left upper pulmonary vein and subsequently the catheter was advanced over the wire to the left upper pulmonary vein. The 0.035 J-wire was pulled out and then I advanced a akshat wire. Subsequently, the multipurpose catheter was withdrawn out and the wire was left in the left upper pulmonary vein. After that, I did prep the Amplatzer PFO occluder under saline. The device was loaded into the ship loader, which was attached to the sheath. Subsequently, I did exchange my 8-[place] sheath into the Shuttle sheath over a 0.035 akshat wire. The sheath was advanced all the way under fluoroscopy guidance to the left atrium. Subsequently, the dilator of the sheath was withdrawn out along with the wire. After that, I did load the Amplatzer occluder under continuous saline flush to the sheath. The device was advanced all the way through the sheath were I did where I did deploy initially the left atrial occluder and then I pulled back the sheath and the left atrial occluder all the way to the interatrial septum and then I deployed the right atrial occluder after that. Before I released the device, I did interrogate the septum using ice images on multiple views. After I realized that the device was stable enough and in good position the device was released. Interrogation using ice was also performed after the device was released. By the end I did right atrial angiogram. The procedure was completed without any complication. POSTPROCEDURE MANAGEMENT: 1. Dual anti-platelet therapy. 2. An echo in 24 hours, in 1 week, in 4 weeks, as well as in 6 months. 5. Follow up
[2020-09-11] MEDS: PANTOPRAZOLE 40 MG TABLET PO SCH (14:45)
[2020-09-11] MEDS: cycloSPORINE 0.05% OPHTH 0.4 ML DROPERETTE BOTH EYES SCH (20:53)
[2020-09-11] MEDS: cloNIDine HCL 0.1 MG TAB PO SCH (20:53)
[2020-09-11] MEDS: VIT A,C & E-LUTEIN-MINERALS 1 EACH TAB PO SCH (20:53)
[2020-09-11] MEDS: FAMOTIDINE 20 MG TAB PO SCH (20:53)
[2020-09-12] MEDS: LEVOTHYROXINE 25 MCG TAB PO SCH (06:26)
[2020-09-12] MEDS: PANTOPRAZOLE 40 MG TABLET PO SCH (06:26)
[2020-09-12] MEDS: ASPIRIN 325 MG TAB PO SCH (08:07)
[2020-09-12] MEDS: hydroCHLOROthiazide 25 MG TAB PO SCH (08:07)
[2020-09-12] MEDS: MELOXICAM 7.5 MG TAB PO SCH (08:07)
[2020-09-12] MEDS: LACTOBACILLUS ACIDOPH & BULGAR 1 EACH PACKET PO SCH (08:07)
[2020-09-12] MEDS: CLOPIDOGREL 75 MG TAB PO SCH (08:09)
[2020-09-12] MEDS: FAMOTIDINE 20 MG TAB PO SCH ×2 (08:09→20:18)
[2020-09-12] MEDS: LOSARTAN 50 MG TAB PO SCH (08:09)
[2020-09-12] MEDS: VIT A,C & E-LUTEIN-MINERALS 1 EACH TAB PO SCH ×2 (08:09→20:18)
[2020-09-12] MEDS: MULTIVITAMINS, THERA 1 EACH TAB PO SCH (08:09)
[2020-09-12] MEDS: LORATADINE 10 MG TAB PO SCH (08:09)
[2020-09-12] MEDS: cycloSPORINE 0.05% OPHTH 0.4 ML DROPERETTE BOTH EYES SCH ×2 (08:10→20:18)
[2020-09-12 08:58] LABS: Basophils % (A) 0 %; Eosinophils # (A) 0.2 k/uL (0-0.7); Eosinophils % (A) 3 %; HCT 42.3 % (34.0-46.0); HGB 13.3 gm/dL (11.4-16.0); Lymphocytes # (A) 1.9 k/uL (1.0-4.8); Lymphocytes % (A) 19 %; MCH 29.9 pg (25.0-35.0); MCHC 31.3 g/dL (31.0-37.0); MCV 95.4 fL (80.0-100.0); Mean Platelet Volume 8.1; Monocytes # (A) 0.6 k/uL (0-1.0); Monocytes % (A) 6 %; Neutrophils # (A) 6.8 k/uL (1.3-7.7); Neutrophils % (A) 70 %; Platelet Count 235 k/uL (150-450); RBC 4.44 m/uL (3.80-5.40); RDW 12.7 % (11.5-15.5); WBC 9.7 k/uL (3.8-10.6)
[2020-09-12] MEDS ORDERED: ASPIRIN 81 MG PO SCH (09:00)
[2020-09-12 09:21] LABS: Calcium 8.8 mg/dL (8.4-10.2); Potassium 3.9 mmol/L (3.5-5.1)
--- NOTE | 2020-09-12 10:04 | XR ---
EXAMINATION TYPE: XR chest 2V DATE OF EXAM: 09/12/2020 COMPARISON: 12/01/2019 TECHNIQUE: PA and lateral views submitted. HISTORY: ASD, PFO placement FINDINGS: The lungs are clear and there is no pneumothorax, pleural effusion, or focal pneumonia. Heart size normal. No overt failure. Cardiac surgery suggested with possible valve surgery. Degenerative change of the spine. Surgical clip in the abdomen. Mild prominence the pulmonary arteries can be associated with pulmonary arterial hypertension. IMPRESSION: 1. No acute process.
--- NOTE | 2020-09-12 11:19 | P.PN ---
Progress Note - Text Progress Note Date: 09/12/20 This is a very pleasant 75-year-old female patient who was diagnosed recently was TIA/stroke. She was referred to me to rule out any cardiac source of embolization. An event monitor was performed and showed no evidence of atrial fibrillation. Subsequently transesophageal echocardiogram was performed and revealed evidence of fenestrated interatrial septum with evidence of [id number] and axdn-rz-lznhe shunt. Yesterday she underwent successful percutaneous closure of patent foramen ovale /atrial septal defect using 35 mm cribriform Amplatzer occluder with an excellent results by the end and without any complication from right and left groin approach with adjunctive use of intracardiac echocardiogram. The patient was seen today. She is doing well overall. No arrhythmia overnight. The echo was reviewed by myself and revealed stable and the atrial device without any residual shunt. The blood work is unremarkable. The chest x-ray also was reviewed and does not seems to be concerning. I am going to keep the patient one more day in the hospital just because the device was very large at 35 mm and she is going to be discharged home tomorrow.
--- NOTE | 2020-09-12 11:30 | ECHOF ---
Referral Reason:Post ASD/PFO Insertion MEASUREMENTS -------- HEIGHT: 165.1 cm WEIGHT: 111.6 kg BP: RVIDd: 3.6 cm (< 3.3) IVSd: 1.3 cm (0.6 - 1.1) LVIDd: 3.7 cm (3.9 - 5.3) LVPWd: 1.4 cm (0.6 - 1.1) IVSs: 1.6 cm LVIDs: 3.3 cm LVPWs: 1.3 cm LA Diam: 4.8 cm (2.7 - 3.8) LAESV Index (A-L): 39.03 ml/m Ao Diam: 3.2 cm (2.0 - 3.7) AV Cusp: 1.4 cm (1.5 - 2.6) LA Diam: 5.0 cm (2.7 - 3.8) MV EXCURSION: 15.618 mm (> 18.000) MV EF SLOPE: 87 mm/s (70 - 150) EPSS: 0.4 cm MV E Bjorn: 0.45 m/s MV DecT: 273 ms MV A Bjorn: 0.69 m/s MV E/A Ratio: 0.65 FINDINGS -------- 1Sinus rhythm. Pt had ASD Closure 09-11-[address], membraneous septum, slightly mobile device, no shunt, reviewed with Dr. Oquendo. The left ventricular size is normal. There is mild concentric left ventricular hypertrophy. Overa ll left ventricular systolic function is low-normal with, an EF between 50 - 55 %. The right ventricle is normal in size. The left atrium is markedly dilated. LA is severely dilated >40 ml/m2 The right atrium is mildly enlarged. Julissa Membranous VSD. small perimembranous VSD Mild mitral regurgitation is present. Mild tricuspid regurgitation present. Right ventricular systolic pressure is normal at < 35 mmHg. There is no pulmonic regurgitation present. The aortic root size is normal. Echo free space represents a pericardial fat pad. CONCLUSIONS -------- 1. Pt had ASD Closure 09-11-[address], membraneous septum, slightly mobile device, no duane nt, reviewed with Dr. Oquendo. 2. The left ventricular size is normal. 3. There is mild concentric left ventricular hypertrophy. 4. Overall left ventricular systolic function is low-normal with, an EF between 50 - 55 %. 5. The right ventricle is normal in size. 6. LA is severely dilated >40 ml/m2 7. The right atrium is mildly enlarged. 8. Julissa Membranous VSD. 9. small perimembranous VSD 10. Mild mitral regurgitation is present. 11. Mild tricuspid regurgitation present. 12. There is no pulmonic regurgitation present. 13. The aortic root size is normal. 14. Echo free space represents a pericardial fat pad. BOW MAKER MACHINE TENDER: Marissa Espinoza RDCS
[2020-09-12] MEDS: cloNIDine HCL 0.1 MG TAB PO SCH (20:17)
[2020-09-13] MEDS: PANTOPRAZOLE 40 MG TABLET PO SCH (06:33)
[2020-09-13] MEDS: LEVOTHYROXINE 25 MCG TAB PO SCH (06:33)
[2020-09-13] MEDS: MULTIVITAMINS, THERA 1 EACH TAB PO SCH (07:58)
[2020-09-13] MEDS: LOSARTAN 50 MG TAB PO SCH (07:58)
[2020-09-13] MEDS: MELOXICAM 7.5 MG TAB PO SCH (07:58)
[2020-09-13] MEDS: hydroCHLOROthiazide 25 MG TAB PO SCH (08:00)
[2020-09-13] MEDS: FAMOTIDINE 20 MG TAB PO SCH (08:00)
[2020-09-13] MEDS: CLOPIDOGREL 75 MG TAB PO SCH (08:00)
[2020-09-13] MEDS: LORATADINE 10 MG TAB PO SCH (08:00)
[2020-09-13] MEDS: ASPIRIN 325 MG TAB PO SCH (08:00)
[2020-09-13] MEDS: VIT A,C & E-LUTEIN-MINERALS 1 EACH TAB PO SCH (08:00)
[2020-09-13] MEDS: LACTOBACILLUS ACIDOPH & BULGAR 1 EACH PACKET PO SCH (08:00)
[2020-09-13] MEDS: cycloSPORINE 0.05% OPHTH 0.4 ML DROPERETTE BOTH EYES SCH (08:01)
[2020-09-13 08:15] VITALS: BP 148/70; PULSE 79; RESP 17; TEMP 97.8
--- NOTE | 2020-09-13 16:37 | DS ---
DISCHARGE SUMMARY DATE OF ADMISSION: 09/11/2020 DATE OF DISCHARGE: 09/13/2020 BRIEF HISTORY: This is a pleasant 75-year-old female patient who underwent 2 days ago successful percutaneous closure of fenestrated interatrial septum using a 35 mm Cribriform Amplatzer device with excellent angiographic results and without any complication from right and left groin approach with transvenous approach. She was seen yesterday and an echocardiogram was performed yesterday and showed stable interatrial device without any residual shunt. She is going to be discharged today on dual anti-platelet therapy for 30 days followed by aspirin for 6 months. MMODL / IJN: [id number] /
== END 2020-09-13 10:08 | disposition home or self-care (01) ==
LOC: CATHCVL 05:37 → 3SCARD 13:03 → CATHCVL 09-12 12:53 → 3SCARD 09-12 12:54
PROVIDERS: ADMIT Internal Medicine Interventional Cardiology; ATTEND Internal Medicine Interventional Cardiology
DX: Q21.1 Atrial septal defect (principal); I10 Essential (primary) hypertension; I73.9 Peripheral vascular disease, unspecified; Z86.73 Personal history of transient ischemic attack (TIA), and cerebral infarction without residual deficits; Z79.1 Long term (current) use of non-steroidal anti-inflammatories (NSAID); Z82.49 Family history of ischemic heart disease and other diseases of the circulatory system; Z79.82 Long term (current) use of aspirin; Z79.890 Hormone replacement therapy; Z79.899 Other long term (current) drug therapy; Z88.5 Allergy status to narcotic agent; Z88.1 Allergy status to other antibiotic agents; Z91.040 Latex allergy status; H35.30 Unspecified macular degeneration
CPT/HCPCS: 93306; 93580; 93662; 85347; 86900; 86901; 80048 ×2; 85025 ×2; 86850; 71046; G0378 ×2; C1769 ×4; C1817; C1894 ×3; C1759; J2250; J0690; J2001; J3010; J1644; Q9966

== ENCOUNTER 2020-12-08 08:56 | Emergency (ER) | payer MEDICARE ==
[2020-12-08 09:01] VITALS: RESP 18
[2020-12-08] MEDS ORDERED: methylPREDNISolone SOD SUCCI 125 MG/2 ML VIAL IV STA (09:17)
[2020-12-08] MEDS ORDERED: fentaNYL (PF) 50 MCG/ML 2 ML AMP IV STA (09:19)
--- NOTE | 2020-12-08 09:29 | ED ---
Extremity Problem HPI - General Chief complaint: Extremity Problem,Nontraumatic Stated complaint: Hip pain Time Seen by Provider: 12/08/20 09:04 Source: patient, RN notes reviewed Mode of arrival: wheelchair Limitations: no limitations - History of Present Illness Initial comments: This is a 75-year-old female history of A. fib currently on blood thinners who also believes she has bursitis who states she's had pain in the left hip for the past 3 days this and very bad with movement but is actually going about a week she denies any injury falls heavy lifting she states it feels like achy pain especially when she tries get up and move. She denies any abdominal pain dysuria hematuria any urinary or fecal incontinence no weakness to her extremities. She states it does seem to go across her back somewhat. No fevers chills sweats or other symptoms reported she does have a history of replacements but has not had any trouble does recently she did have a history of fluid in the left knee which required 2 aspirations. MD Complaint: extremity pain - Related Data Home Medications Medication Instructions Recorded Confirmed Esomeprazole Magnesium [NexIUM] 20 mg PO DAILY 09/01/15 12/08/20 Vits A,C,E/Lutein/Minerals 1 tab PO BID 09/01/15 12/08/20 [Ocuvite with Lutein Tablet] Fluticasone Nasal [place] [Flonase 2 spr EA NOSTRIL DAILY PRN 08/05/17 12/08/20 Nasal [place]] Multivitamins, Thera [Multivitamin 1 tab PO DAILY 08/05/17 12/08/20 (formulary)] cloNIDine HCL [Catapres] 0.1 mg PO HS 08/05/17 12/08/20 cycloSPORINE [Restasis] 1 drop BOTH EYES BID 08/05/17 12/08/20 Meloxicam 15 mg PO DAILY 03/14/18 12/08/20 Famotidine [Pepcid] 20 mg PO BID 08/21/20 12/08/20 L.acidoph,Paracasei, B.lactis 1 cap PO DAILY 08/21/20 12/08/20 [Probiotic] Levothyroxine Sodium [Synthroid] 25 mcg PO DAILY 08/21/20 12/08/20 hydroCHLOROthiazide [Hydrodiuril] 25 mg PO DAILY 08/21/20 12/08/20 Loratadine [Claritin] 10 mg PO DAILY PRN 08/23/20 12/08/20 Apixaban [Eliquis] 5 mg PO BID 12/08/20 12/08/20 Losartan Potassium 100 mg PO DAILY 12/08/20 12/08/20 Topiramate 50 mg PO DIRECTED 12/08/20 12/08/20 Topiramate [Topamax] 25 mg PO DIRECTED 12/08/20 12/08/20 Previous Rx's Medication Instructions Recorded predniSONE [Deltasone] 20 mg PO BID #10 tab 12/08/20 Allergies Allergy/AdvReac Type Severity Reaction Status Date / Time hydrocodone Allergy Nausea & Verified 12/08/20 09:31 Vomiting adhesive tape AdvReac skin Verified 12/08/20 09:31 irritation erythromycin base AdvReac Nausea Verified 12/08/20 09:31 latex AdvReac Rash/Hives Verified 12/08/20 09:31 Review of Systems ROS Statement: Those systems with pertinent positive or pertinent negative responses have been documented in the HPI. ROS Other: All systems not noted in ROS Statement are negative. Past Medical History Past Medical History: Atrial Fibrillation, CVA/TIA, Eye Disorder, GERD/Reflux, Hypertension, Osteoarthritis (OA), Skin Disorder, Thyroid Disorder Additional Past Medical History / Comment(s): Hx migraines. Hiatal Hernia. Eczema, hx precancer skin lesions. ALYSON Corneal Dystrophy, Macular Degeneration. TIA 09/2017. 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 Osteoporosis. Erratic HR 1 month ago. 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 SURESH History of Any Multi-Drug Resistant Organisms: None Reported Past Surgical History: Cholecystectomy, Hysterectomy, Joint Replacement, Orthopedic Surgery Additional Past Surgical History / Comment(s): Fertility surgery, opened tube & repaired. Rt knee meniscus repair. Goiter removed, Partial Thyroidectomy. Left and Right total knee replacement. 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 Has fine veins, diff IV start. Past Psychological History: No Psychological Hx Reported Smoking Status: Never smoker Past Alcohol Use History: Rare Past Drug Use History: None Reported - Past Family History Mother Family Medical History: Cancer, Hypertension Additional Family Medical History / Comment(s): uterine Father Family Medical History: Coronary Artery Disease (CAD), Hypertension Additional Family Medical History / Comment(s): CABG General Exam - General Exam Comments Initial Comments: this is a well-developed well-nourished awake alert oriented 3 female Limitations: no limitations General appearance: alert, in no apparent distress Head exam: Present: atraumatic, normocephalic, normal inspection Eye exam: Present: normal appearance, PERRL, EOMI. Absent: scleral icterus, conjunctival injection, periorbital swelling ENT exam: Present: normal exam, mucous membranes moist Neck exam: Present: normal inspection. Absent: tenderness, meningismus, lymphadenopathy Respiratory exam: Present: normal lung sounds bilaterally. Absent: respiratory distress, wheezes, rales, rhonchi, stridor Cardiovascular Exam: Present: normal rhythm, irregular rhythm. Absent: systolic murmur, diastolic murmur, rubs, gallop, clicks GI/Abdominal exam: Present: soft, normal bowel sounds. Absent: distended, tenderness, guarding, rebound, rigid Rectal exam: Present: deferred Extremities exam: Present: normal inspection, full ROM, tenderness (tennis palpation over the left hip and sciatic fell at the. No step-off no crepitation no increased localized temperature.), normal capillary refill. Absent: pedal edema, joint swelling, calf tenderness Back exam: Present: normal inspection, tenderness (mild times palpation along the left SI joint) Neurological exam: Present: alert, oriented X3, CN II-XII intact Psychiatric exam: Present: normal affect, normal mood Skin exam: Present: warm, dry, intact, normal color. Absent: rash Course Vital Signs 12/08/20 12/08/20 12/08/20 08:57 10:01 11:00 Temperature 98.3 F Pulse Rate 82 74 70 Respiratory 18 18 18 Rate Blood Pressure 142/83 120/63 O2 Sat by Pulse 97 96 96 Oximetry 12/08/20 11:16 Temperature 98.6 F Pulse Rate 67 Respiratory 18 Rate Blood Pressure 121/63 O2 Sat by Pulse 96 Oximetry - Reevaluation(s) Reevaluation #1: 12/08/20 11:51 agent he get relief from her pain with the medication given Medical Decision Making - Medical Decision Making I did discuss the findings with the patient and her and a long discussion regarding aspects of the pain does appear to be consistent with sciatica. Patient will be discharged on a course of steroids [id number] Tylenol extra strength as needed and keep a follow-up with Dr. Jordan. Also she's woke and return when necessary. - Lab Data Result diagrams: 12/08/20 09:52 12/08/20 10:54 Lab Results 12/08/20 12/08/20 12/08/20 Range/Units 09:52 09:52 10:54 WBC 7.5 (3.8-10.6) k/uL RBC 4.78 (3.80-5.40) m/uL Hgb 14.0 (11.4-16.0) gm/dL Hct 43.0 (34.0-46.0) % MCV 89.8 (80.0-100.0) fL MCH 29.2 (25.0-35.0) pg MCHC 32.5 (31.0-37.0) g/dL RDW 12.8 (11.5-15.5) % Plt Count 267 (150-450) k/uL MPV 9.2 Neutrophils % 74 % Lymphocytes % 17 % Monocytes % 5 % Eosinophils % 2 % Basophils % 0 % Neutrophils # 5.5 (1.3-7.7) k/uL Lymphocytes # 1.3 (1.0-4.8) k/uL Monocytes # 0.4 (0-1.0) k/uL Eosinophils # 0.2 (0-0.7) k/uL Basophils # 0.0 (0-0.2) k/uL Sodium 137 (137-145) mmol/L Potassium 4.1 (3.5-5.1) mmol/L Chloride 103 (98-107) mmol/L Carbon Dioxide 25 (22-30) mmol/L Anion Gap 9 mmol/L BUN 26 H (7-17) mg/dL Creatinine 0.82 (0.52-1.04) mg/dL Est GFR (CKD-EPI)AfAm 82 (>60 ml/min/1.73 sqM) Est GFR (CKD-EPI)NonAf 71 (>60 ml/min/1.73 sqM) Glucose 127 H (74-99) mg/dL Calcium 9.5 (8.4-10.2) mg/dL Magnesium 1.9 (1.6-2.3) mg/dL Total Bilirubin 0.4 (0.2-1.3) mg/dL AST 35 (14-36) U/L ALT 30 (4-34) U/L Alkaline Phosphatase 85 (38-126) U/L Creatine Kinase 91 (30-135) U/L Total Protein 7.4 (6.3-8.2) g/dL Albumin 3.9 (3.5-5.0) g/dL Urine Color Yellow Urine Appearance Cloudy H (Clear) Urine pH 6.5 (5.0-8.0) Ur Specific [place] 1.021 (1.001-1.035) Urine Protein Trace H (Negative) Urine Glucose (UA) Negative (Negative) Urine Ketones Negative (Negative) Urine Blood Negative (Negative) Urine Nitrite Negative (Negative) Urine Bilirubin Negative (Negative) Urine Urobilinogen <2.0 (<2.0) mg/dL Ur Leukocyte Esterase Moderate H (Negative) Urine RBC 3 (0-5) /hpf Urine WBC 16 H (0-5) /hpf Ur Squamous Epith Cells 10 H (0-4) /hpf Urine Bacteria Few H (None) /hpf Urine Mucus Occasional H (None) /hpf - Radiology Data Radiology results: report reviewed (I did review the imaging and report evidence of degenerative joint disease no acute findings. Please see the complete report), image reviewed Disposition Clinical Impression: Sciatica of left side Disposition: HOME SELF-CARE Condition: Good Instructions (If sedation given, give patient instructions): Sciatica (ED) Prescriptions: predniSONE [Deltasone] 20 mg PO BID #10 tab Is patient prescribed a controlled substance at d/c from ED?: No Referrals: Anita Jordan MD [Primary Care Provider] - 1-2 days
[2020-12-08 10:03] LABS: Basophils % (A) 0 %; Eosinophils # (A) 0.2 k/uL (0-0.7); Eosinophils % (A) 2 %; Lymphocytes # (A) 1.3 k/uL (1.0-4.8); Lymphocytes % (A) 17 %; MCH 29.2 pg (25.0-35.0); MCHC 32.5 g/dL (31.0-37.0); MCV 89.8 fL (80.0-100.0); Mean Platelet Volume 9.2; Monocytes # (A) 0.4 k/uL (0-1.0); Monocytes % (A) 5 %; Neutrophils # (A) 5.5 k/uL (1.3-7.7); Neutrophils % (A) 74 %; Platelet Count 267 k/uL (150-450); RBC 4.78 m/uL (3.80-5.40); RDW 12.8 % (11.5-15.5); WBC 7.5 k/uL (3.8-10.6)
[2020-12-08 10:28] LABS: Appearance,Urine Cloudy (Clear); Bacteria,Urine Few /hpf; Bilirubin,Urine Negative (Negative); Blood,Urine Negative (Negative); Color,Urine Yellow; Glucose,Urine (UA) Negative (Negative); Ketones,Urine Negative (Negative); Leukocyte Esterase,Urine Moderate (Negative); Mucus,Urine Occasional /hpf; Nitrite,Urine Negative (Negative); PH, Urine 6.5 (5.0-8.0); Protein,Urine Trace (Negative); RBC,Urine 3 /hpf (0-5); Specific Gravity,Urine 1.021 (1.001-1.035); Squamous Epithelial Cell,Urine 10 /hpf (0-4); Urobilinogen,Urine <2.0 mg/dL (<2.0); WBC,Urine 16 /hpf (0-5)
--- NOTE | 2020-12-08 10:51 | XR ---
EXAMINATION TYPE: XR Hip LT and AP Pelvis DATE OF EXAM: 12/08/2020 COMPARISON: NONE HISTORY: Pain for 1 week TECHNIQUE: A single AP view of the pelvis is obtained. Two views of the left hip are obtained. FINDINGS: There is no acute fracture/dislocation evident in the pelvis. The hip and sacroiliac join ts appear symmetric and unremarkable. The overlying soft tissue appears unremarkable. Two views of left hip show no acute fracture or dislocation. No focal lytic or sclerotic lesion seen in the proximal left femur. The overlying soft tissue is unremarkable. Degenerative disc changes a re noted in the lumbar spine. There are probable vascular calcifications within the pelvis. IMPRESSION: There is no acute fracture or dislocation in the pelvis or left hip.
--- NOTE | 2020-12-08 10:52 | XR ---
Lumbosacral spine HISTORY: Low back pain, left hip pain 5 views lumbosacral spine There is a levoscoliosis centered at L3. Multilevel spondylosis is present. No evident spondylolysis. Bone mineralization is reduced. Loss of disc height present at intervertebral levels L3-4, L2-3, vac uum phenomenon present at L3-4. Sclerosis is present in the posterior elements. Lumbar vertebral bodi es show preserved height. Alignment is near-anatomic. Surgical clips present in the right upper quadr ant. IMPRESSION: Degenerative disc disease, facet arthropathy, spinal curvature, osteopenia
[2020-12-08 11:13] LABS: Albumin 3.9 g/dL (3.5-5.0); Calcium 9.5 mg/dL (8.4-10.2); Magnesium 1.9 mg/dL (1.6-2.3); Potassium 4.1 mmol/L (3.5-5.1); Total Bilirubin 0.4 mg/dL (0.2-1.3); Total Protein 7.4 g/dL (6.3-8.2)
[2020-12-08 11:21] VITALS: BP 121/63; PULSE 67; TEMP 98.6
== END 2020-12-08 12:00 | disposition home or self-care (01) ==
LOC: EC 08:56
DX: M54.42 Lumbago with sciatica, left side (principal); I48.91 Unspecified atrial fibrillation; K21.9 Gastro-esophageal reflux disease without esophagitis; I10 Essential (primary) hypertension; M19.90 Unspecified osteoarthritis, unspecified site; E07.9 Disorder of thyroid, unspecified; Z79.01 Long term (current) use of anticoagulants; Z79.890 Hormone replacement therapy; Z79.899 Other long term (current) drug therapy; Z88.1 Allergy status to other antibiotic agents; Z88.5 Allergy status to narcotic agent; Z91.040 Latex allergy status; Z86.73 Personal history of transient ischemic attack (TIA), and cerebral infarction without residual deficits; Z90.49 Acquired absence of other specified parts of digestive tract; Z90.710 Acquired absence of both cervix and uterus; Z96.653 Presence of artificial knee joint, bilateral
CPT/HCPCS: 36415; 80053; 82550; 83735; 85025; 81001; 87086; 72110; 73502; 99283; 96374; 96375; J2930; J3010

== ENCOUNTER → 2021-01-09 | Outpatient (CLI) | payer MEDICARE ==
--- NOTE | 2021-01-09 18:31 | US ---
EXAMINATION TYPE: US thyroid st tissue head/neck DATE OF EXAM: 01/09/2021 COMPARISON: Thyroid ultrasound July 12, 2020 CLINICAL HISTORY: E04.1 SINGLE THYROID NODULE. Right thyroidectomy per patient GLAND SIZE: Right Lobe: heterogeneous is noted lateral to thyroidectomy area Left Lobe: 4.5 x 1.7 x 1.5 cm Overall Parenchyma: homogeneous Isthmus Thickness: 0.3 cm NODULES Right thyroid neck area post surgery: hypoechoic complex area seen = 3.0 x 1.0 x 0.9cm and seen on pr evious US here. LEFT: # of nodules measured on left: 3 largest of multiple 1. 1.2 X 1.1 x 0.9 cm cystic or almost completely cystic, hypoechoic nodule at inferior pole, which is wider than tall, with lobulated or irregular margins, with echogenic wall focus. Prior size: 1.1 x 1.3 x 0.8 cm 2. 1.1 X 0.8 x 0.6 cm mixed cystic and solid, hypoechoic nodule, which is wider than tall, with smo oth margins located mid pole, without echogenic foci. Prior size: 1.1 x 0.5 x 1.0 cm 3. 0.5 X 0.5 x 0.5 cm solid or almost completely solid, hyperechoic nodule located inferior pole, w hich is wide as is tall, with smooth margins, without echogenic foci. Prior size: not seen ISTHMUS: # of nodules measured in the isthmus: 0 Bilateral neck scanned: no evidence of lymphadenopathy. Stable homogeneous normal-sized left thyroid lobe with stable greater than 1 cm nodules as detailed a josé. Technologist saba 5 mm hyperechoic solid nodule can't study not clearly identified on prior. S table suspicious imaging is hypoechoic tissue in the right thyroid bed unchanged from prior IMPRESSION: As above. Correlate for recurrent right thyroid disease.
== END ==
LOC: RADUSWWP 14:38
PROVIDERS: ATTEND Family Medicine
DX: E04.2 Nontoxic multinodular goiter (principal)
CPT/HCPCS: 76536

== ENCOUNTER → 2021-07-30 | Outpatient (CLI) | payer MEDICARE ==
--- NOTE | 2021-07-31 17:50 | US ---
EXAMINATION TYPE: US thyroid st tissue head/neck DATE OF EXAM: 07/30/2021 COMPARISON: 01/09/21 US CLINICAL HISTORY: 76-year-old female E04.1 THYROID NODULE. Hx of right thyroidectomy due to goiter. GLAND SIZE: Right Lobe: Surgically absent Left Lobe: 5.8x1.5x1.9 cm Overall Parenchyma: homogeneous Isthmus Thickness: 0.4 cm NODULES RIGHT: # of nodules measured on right: 1 ? residual tissue 1. 2.4 X 1.1 x 1.0 cm, lower , hypoechoic nodule, which is wider than tall, with smooth margins, wi thout echogenic foci. Prior size: 3.0 x 0.9 x 1.0 cm LEFT: # of nodules measured on left: 3 1. 1.1 X 0.7 x 0.9 cm, mid mid, spongiform, hypoechoic nodule, which is wider than tall, with julita h margins, without echogenic foci. Prior size: 1.1 x 0.6 x 0.8 cm 2. 0.6 X 0.7 x 0.6 cm, lower lateral, solid or almost completely solid, hyperechoic nodule, which is taller than wide, with smooth margins, without echogenic foci. Prior size: 0.5 x 0.5 x 0.5 cm 3. 1.1 X 1.0 x 1.3 cm, lower mid, mixed cystic and solid, isoechoic nodule, which is wider than roland l, with smooth margins, without echogenic foci. Prior size: 1.2 x 0.9 x 1.1 cm ISTHMUS: # of nodules measured in the isthmus: 0 Bilateral neck scanned, no evidence of lymphadenopathy. Chief Librarian Circulation Department notes: Similar to previous IMPRESSION: 1. Status post right thyroidectomy. There is redemonstrated nodular soft tissue in the right directly bed. This is similar to slightly smaller measuring 2.4 x 1.1 cm (versus 3.0 x 1.0 cm, previously) an d could represent residual or regenerative tissue or an underlying nodule. 2. A total of 3 nodules in the left lobe, largest measuring 1.1 cm remain unchanged.
== END | disposition home or self-care (01) ==
LOC: RADUSWWP 13:59
PROVIDERS: ATTEND Otolaryngology
DX: E04.1 Nontoxic single thyroid nodule (principal)
CPT/HCPCS: 76536

== ENCOUNTER → 2021-08-15 | Outpatient (CLI) | payer MEDICARE ==
--- NOTE | 2021-08-19 11:54 | BD ---
EXAMINATION TYPE: Axial Bone Density DATE OF EXAM: 08/15/2021 COMPARISON: 11/23/2017 CLINICAL HISTORY: Postmenopausal female Z 78.0 Height: 64.7 IN Weight: 259 LBS FRAX RISK QUESTIONS: Secondary Osteoporosis: 3. Menopause before 45: AGE 46 PARTIAL HYST AGE 43 RISK FACTORS HISTORY OF: Active: YES Postmenopausal woman: PARTIAL HYST AGE 46 Take estrogen and/or progesterone medications: TOOK CONTROL FOR 4 YEARS MEDICATIONS: Thyroid Medications: YES Which medication: Levothyroxine How Lon YEARS Additional Medications: LEVOTHYROXINE, MULTI VIT, LOSARTAN, NEXIUM, OCUVITE, MELOXICAM, CLONIDINE, FA MOTIDINE, HCTZ, ELIQUIS, EYE DROPS, EXAM MEASUREMENTS: Bone mineral densitometry was performed using the 2nd Watch System. Bone mineral density as measured about the Lumbar spine is: ----- L1-L4(G/cm2): 1.233 T Score Values are as follows: ----- L2: -0.3 ----- L3: 0.9 ----- L4: 0.5 ----- L1-L4: 0.4 Bone mineral density has: Decreased -0.6% since study of: 11/23/2017 Bone mineral density about the R hip (g/cm2): 0.905 Bone mineral density about the L hip (g/cm2): 0.834 T Score values are as follows: -----R Neck: -1.0 -----L Neck: -1.5 -----R Total: -1.3 -----L Total: -1.5 Bone mineral density has: Increased 2.7% since study of: 11/23/2017 IMPRESSION: Osteopenia (T Score between -2.5 and -1) is redemonstrated. There is slightly increased risk of fracture and the patient may be considered for treatment. Re-Screen 2-5 years. NOTE: T-SCORE=SD OF THE YOUNG ADULT MEAN.
--- NOTE | 2021-08-22 11:58 | MM ---
Reason for exam: screening (asymptomatic). Last mammogram was performed 2 years and 2 months ago. History: Family history of breast cancer in sister at age 66. Physical Findings: A clinical breast exam by your physician is recommended on an annual basis and results should be correlated with mammographic findings. MG 3D Screening Mammo W/Cad Bilateral CC and MLO view(s) were taken. Prior study comparison: June 22, 2019, mammogram, performed at [facility]. September 25, 2016, mammogram, performed at [facility]. The breast tissue is almost entirely fat. No significant changes when compared with prior studies. ASSESSMENT: Benign, BI-RAD 2 RECOMMENDATION: Routine screening mammogram of both breasts in 1 year.
== END | disposition home or self-care (01) ==
LOC: RADMAMWWP 15:21
PROVIDERS: ATTEND Family Medicine
DX: Z12.31 Encounter for screening mammogram for malignant neoplasm of breast (principal); M85.80 Other specified disorders of bone density and structure, unspecified site; Z78.0 Asymptomatic menopausal state
CPT/HCPCS: 77063; 77067; 77080

== ENCOUNTER → 2022-01-07 | Outpatient (CLI) | payer MEDICARE ==
--- NOTE | 2022-01-07 15:30 | US ---
EXAMINATION TYPE: US thyroid st tissue head/neck DATE OF EXAM: 01/07/2022 COMPARISON: US CLINICAL HISTORY: E04.1 Thyroid nodule. F/U GLAND SIZE: Left Lobe: 5.1 x 1.6 x 1.7 cm Overall Parenchyma: heterogeneous Isthmus Thickness: 0.5 cm NODULES RIGHT: # of nodules measured on right: Probable residual tissue within right thyroid bed, unchanged from previous= 2.8 x 1.1 x 1.0 cm LEFT: # of nodules measured on left: 2 1. 1.1 X 1.0 x 1.4 cm, lower, mixed cystic and solid, hypoechoic nodule, which is wider than tall, with smooth margins, with echogenic foci. Prior size: 1.1 x 1.0 x 1.3 cm 2. 1.1 X 0.6 x 1.1 cm, mid, mixed cystic and solid, hypoechoic nodule, which is wider than tall, w ith smooth margins, without echogenic foci. Prior size: 1.1 x 0.7 x 0.9 cm ISTHMUS: # of nodules measured in the isthmus: 0 Bilateral neck scanned, no evidence of lymphadenopathy. Unchanged from previous. IMPRESSION: Nonspecific thyroid nodularity.
== END | disposition home or self-care (01) ==
LOC: RADUSWWP 14:46
PROVIDERS: ATTEND Otolaryngology
DX: E04.1 Nontoxic single thyroid nodule (principal)
CPT/HCPCS: 76536

== ENCOUNTER → 2022-01-22 | Outpatient (CLI) | payer MEDICARE ==
--- NOTE | 2022-01-22 14:39 | US ---
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 History of hypertension with prior TIA/CVA . Bilateral arm numbness. Doppler Waveforms: Right: Multiphasic Left: Biphasic Pulse Volume Recording: Normal Pressure Gradients: Wrist Brachial Indices: Right: 1.19 Left: 1.18 IMPRESSION: Normal study
== END | disposition home or self-care (01) ==
LOC: RADUSWWP 13:04
PROVIDERS: ATTEND Family Medicine
DX: I70.8 Atherosclerosis of other arteries (principal)
CPT/HCPCS: 93922

== ENCOUNTER 2022-03-14 11:07 | Emergency (ER) | payer MEDICARE ==
--- NOTE | 2022-03-14 12:02 | ED ---
General Adult HPI - General Chief complaint: Upper Respiratory Infection Stated complaint: Covid+ Time Seen by Provider: 03/14/22 11:48 Source: patient, RN notes reviewed, old records reviewed Mode of arrival: ambulatory Limitations: no limitations - History of Present Illness Initial comments: Patient presents with sore throat, cough and congestion since Wednesday. She received her booster for coronavirus on Wednesday also. She tested positive for coronavirus at home. She denies any fevers, no chest pain, no nausea, vomiting, or diarrhea. Vital signs are stable. Patient denies any pain at this time. She states she has been using Mucinex since Wednesday. She does have a history of A. fib on eliquis. -: days(s) (4) Location: mouth (sore throat, congestion) Severity scale (1-10): 0 Associated Symptoms: cough (congestion, sore throat) Treatments Prior to Arrival: other (mucinex) - Related Data Home Medications Medication Instructions Recorded Confirmed Esomeprazole Magnesium [NexIUM] 20 mg PO DAILY 09/01/15 12/08/20 Vits A,C,E/Lutein/Minerals 1 tab PO BID 09/01/15 12/08/20 [Ocuvite with Lutein Tablet] Fluticasone Nasal [place] [Flonase 2 spr EA NOSTRIL DAILY PRN 08/05/17 12/08/20 Nasal [place]] Multivitamins, Thera [Multivitamin 1 tab PO DAILY 08/05/17 12/08/20 (formulary)] cloNIDine HCL [Catapres] 0.1 mg PO HS 08/05/17 12/08/20 cycloSPORINE [Restasis] 1 drop BOTH EYES BID 08/05/17 12/08/20 Meloxicam 15 mg PO DAILY 03/14/18 12/08/20 Famotidine [Pepcid] 20 mg PO BID 08/21/20 12/08/20 L.acidoph,Paracasei, B.lactis 1 cap PO DAILY 08/21/20 12/08/20 [Probiotic] Levothyroxine Sodium [Synthroid] 25 mcg PO DAILY 08/21/20 12/08/20 hydroCHLOROthiazide [Hydrodiuril] 25 mg PO DAILY 08/21/20 12/08/20 Loratadine [Claritin] 10 mg PO DAILY PRN 08/23/20 12/08/20 Apixaban [Eliquis] 5 mg PO BID 12/08/20 12/08/20 Losartan Potassium 100 mg PO DAILY 12/08/20 12/08/20 Topiramate 50 mg PO DIRECTED 12/08/20 12/08/20 Topiramate [Topamax] 25 mg PO DIRECTED 12/08/20 12/08/20 Previous Rx's Medication Instructions Recorded predniSONE [Deltasone] 20 mg PO BID #10 tab 12/08/20 Benzonatate [Tessalon Perles] 100 mg PO TID PRN #15 capsule 03/14/22 Allergies Allergy/AdvReac Type Severity Reaction Status Date / Time hydrocodone Allergy Nausea & Verified 03/14/22 11:13 Vomiting adhesive tape AdvReac skin Verified 03/14/22 11:13 irritation erythromycin base AdvReac Nausea Verified 03/14/22 11:13 latex AdvReac Rash/Hives Verified 03/14/22 11:13 Review of Systems ROS Statement: Those systems with pertinent positive or pertinent negative responses have been documented in the HPI. ROS Other: All systems not noted in ROS Statement are negative. Past Medical History Past Medical History: Atrial Fibrillation, CVA/TIA, Eye Disorder, GERD/Reflux, Hypertension, Osteoarthritis (OA), Skin Disorder, Thyroid Disorder Additional Past Medical History / Comment(s): Hx migraines. Hiatal Hernia. Eczema, hx precancer skin lesions. ALYSON Corneal Dystrophy, Macular Degeneration. TIA 09/2017. 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 Osteoporosis. Erratic HR 1 month ago. 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 SURESH History of Any Multi-Drug Resistant Organisms: None Reported Past Surgical History: Cholecystectomy, Hysterectomy, Joint Replacement, Orthopedic Surgery Additional Past Surgical History / Comment(s): Fertility surgery, opened tube & repaired. Rt knee meniscus repair. Goiter removed, Partial Thyroidectomy. Left and Right total knee replacement. 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 Has fine veins, diff IV start. Past Psychological History: No Psychological Hx Reported Smoking Status: Never smoker Past Alcohol Use History: Rare Past Drug Use History: None Reported - Past Family History Mother Family Medical History: Cancer, Hypertension Additional Family Medical History / Comment(s): uterine Father Family Medical History: Coronary Artery Disease (CAD), Hypertension Additional Family Medical History / Comment(s): CABG General Exam Limitations: no limitations General appearance: alert, in no apparent distress Head exam: Present: atraumatic Eye exam: Present: normal appearance. Absent: scleral icterus, conjunctival injection ENT exam: Present: normal exam, normal oropharynx, mucous membranes moist Expanded Mouth exam: Present: tongue normal, tongue elevation. Absent: drooling, trismus, muffled voice Throat exam: normal inspection. negative: tonsillar erythema, tonsillomegaly, tonsillar exudate, R peritonsillar mass, L peritonsillar mass Neck exam: Present: normal inspection, full ROM. Absent: tenderness, meningismus, lymphadenopathy, thyromegaly Respiratory exam: Present: normal lung sounds bilaterally. Absent: respiratory distress, accessory muscle use Cardiovascular Exam: Present: regular rate GI/Abdominal exam: Present: soft. Absent: distended, tenderness Extremities exam: Present: normal capillary refill. Absent: pedal edema Neurological exam: Present: alert, oriented X3 Psychiatric exam: Present: normal affect, normal mood Skin exam: Present: warm, dry, normal color. Absent: cyanosis, diaphoretic, petechiae, pallor Course Vital Signs 03/14/22 03/14/22 03/14/22 11:10 11:13 12:33 Temperature 98.4 F Pulse Rate 77 62 Respiratory 20 16 18 Rate Blood Pressure 153/76 154/75 O2 Sat by Pulse 96 96 Oximetry 03/14/22 13:39 Temperature 98.5 F Pulse Rate 67 Respiratory 20 Rate Blood Pressure 168/86 O2 Sat by Pulse 97 Oximetry Medical Decision Making - Medical Decision Making Patient Covid positive, symptoms started on Wednesday. She states that she has been vaccinated against coronavirus and received her booster on Wednesday. She was offered and received monoclonal antibody infusion and tolerated it well. Vital signs are stable. Lungs are clear to auscultation. She was directed to return to the emergency room with any new or concerning symptoms follow-up with her primary care doctor as needed. Self quarantine for 10 days - Lab Data Lab Results 03/14/22 Range/Units 11:15 Coronavirus (PCR) Detected A (Not Detectd) Disposition Clinical Impression: COVID-19 Disposition: HOME SELF-CARE Condition: Good Instructions (If sedation given, give patient instructions): Coronavirus Disease 2019 (COVID-19), Upper Respiratory Infection (ED) Additional Instructions: Increase your fluid intake. You can take vitamin C, vitamin D and zinc to improve immune health. Self quarantine for 10 days from symptom onset. If you have no symptoms after day 5 you can go into public with just a mask. Use Mucinex for any thick secretions. Take the Tessalon Perles or a teaspoon of honey for your cough. Follow-up with your primary care doctor next week. Return to the emergency room with any new or concerning symptoms. Prescriptions: Benzonatate [Tessalon Perles] 100 mg PO TID PRN #15 capsule PRN Reason: Cough Is patient prescribed a controlled substance at d/c from ED?: No Referrals: Anita Jordan MD [Primary Care Provider] - 1-2 days Time of Disposition: 13:30
[2022-03-14] MEDS ORDERED: BEBTELOVIMAB (EUA) 175 MG/2 ML VIAL IV ONE (12:30)
[2022-03-14 13:40] VITALS: BP 168/86; PULSE 67; RESP 20; TEMP 98.5
== END 2022-03-14 13:40 | disposition home or self-care (01) ==
LOC: EC 11:07
DX: U07.1 COVID-19 (principal); I10 Essential (primary) hypertension; Z79.83 Long term (current) use of bisphosphonates; K21.9 Gastro-esophageal reflux disease without esophagitis; E07.9 Disorder of thyroid, unspecified; Z79.899 Other long term (current) drug therapy; Z88.5 Allergy status to narcotic agent; Z88.1 Allergy status to other antibiotic agents
CPT/HCPCS: 87635; 99284; Q0222

== ENCOUNTER 2022-06-09 07:04 | Day surgery (SDC) | payer MEDICARE ==
[~2022-06-09 07:04] MED LIST changes: +LACTATED RINGERS 1,000 ML IV SCH; +LIDOCAINE 1% (10MG/ML) FOR IV START INTRADERMA PRN; -REGADENOSON 0.4 MG/5 ML SYRINGE IV ONE
[2022-06-09 07:48] VITALS: RESP 16; TEMP 97.2
[2022-06-09] MEDS ORDERED: PROPOFOL 10 MG/ML 20 ML VIAL IV ONE (08:28)
--- NOTE | 2022-06-09 08:46 | P.PCN ---
Date of Procedure: 06/09/22 Procedure(s) Performed: BRIEF HISTORY: Patient is a 76-year-old pleasant female scheduled for an elective colonoscopy as a part of evaluation of rectal bleeding of 2 days' duration. She denies any change in bowel habits. PROCEDURE PERFORMED: Colonoscopy with snare polypectomy. PREOPERATIVE DIAGNOSIS: Intermittent rectal bleeding. IV sedation per Anesthesia. PROCEDURE: After informed consent was obtained, the patient, was brought into the endoscopy unit. IV sedation was administered by Anesthesia under continuous monitoring. Digital rectal examination was normal. Initially the Olympus CF-160 flexible video colonoscope was then inserted in the rectum, gradually advanced into the cecum without any difficulty. Careful examination was performed as the scope was gradually being withdrawn. Ileocecal valve and the appendiceal orifice were visualized and appeared normal. Prep was excellent. Mucosa of the cecum, ascending colon, appeared normal. In the transverse colon there was a 5 mm polyp that was removed by snare polypectomy. Rest of the transverse colon, descending colon, sigmoid colon, and rectum appeared normal. Scattered sigmoid diverticulosis. Retroflexion was performed in the rectum and no lesions were seen. The patient tolerated the procedure well. IMPRESSION: 5 mm transverse colon polyp status post polypectomy Scattered sigmoid diverticulosis. RECOMMENDATIONS: Findings of this examination were discussed with the patient as well as her family. She was advised to follow with the biopsy results. If the biopsies adenoma she can have a repeat colonoscopy in 5 years..
[2022-06-09 08:55] VITALS: BP 126/65; PULSE 60
== END 2022-06-09 09:16 | disposition home or self-care (01) ==
LOC: ORWHC2ENDO 07:04
PROVIDERS: ATTEND Internal Medicine Gastroenterology
DX: D12.3 Benign neoplasm of transverse colon (principal); K57.30 Diverticulosis of large intestine without perforation or abscess without bleeding; I10 Essential (primary) hypertension; K21.9 Gastro-esophageal reflux disease without esophagitis; E03.9 Hypothyroidism, unspecified; M19.90 Unspecified osteoarthritis, unspecified site; Z86.73 Personal history of transient ischemic attack (TIA), and cerebral infarction without residual deficits; Z88.3 Allergy status to other anti-infective agents; Z88.5 Allergy status to narcotic agent; Z91.040 Latex allergy status; Z91.09 Other allergy status, other than to drugs and biological substances; Z79.1 Long term (current) use of non-steroidal anti-inflammatories (NSAID); Z79.899 Other long term (current) drug therapy; Z79.890 Hormone replacement therapy; Z79.01 Long term (current) use of anticoagulants; Z80.9 Family history of malignant neoplasm, unspecified; Z82.49 Family history of ischemic heart disease and other diseases of the circulatory system; Z80.49 Family history of malignant neoplasm of other genital organs
CPT/HCPCS: 88305; 45385; J2704

== ENCOUNTER 2022-10-01 09:59 | Emergency (ER) | payer MEDICARE ==
[2022-10-01] MEDS ORDERED: IPRATROPIUM-ALBUTEROL 3 ML NEB INHALATION STA (11:17)
--- NOTE | 2022-10-01 11:18 | ED ---
General Adult HPI - General Chief complaint: Upper Respiratory Infection Stated complaint: Flu+,Congestion,Coughing Time Seen by Provider: 10/01/22 10:37 Source: patient, RN notes reviewed Mode of arrival: ambulatory Limitations: no limitations - History of Present Illness Initial comments: Patient is a pleasant 77-year-old female presenting to the emergency department with concerns with cough. Onset of symptoms was 2 weeks ago. Patient did go to her doctor and was diagnosed with influenza however still has symptoms. No dyspnea. Patient does have chest congestion however cough is nonproductive. Patient also complains of nasal congestion. No fevers. No history of chronic lung condition. - Related Data Home Medications Medication Instructions Recorded Confirmed Esomeprazole Magnesium [NexIUM] 20 mg PO DAILY 09/01/15 06/05/22 Vits A,C,E/Lutein/Minerals 1 tab PO BID 09/01/15 06/05/22 [Ocuvite with Lutein Tablet] Fluticasone Nasal [place] [Flonase 2 spr EA NOSTRIL DAILY PRN 08/05/17 06/05/22 Nasal [place]] Multivitamins, Thera [Multivitamin 1 tab PO DAILY 08/05/17 06/05/22 (formulary)] cloNIDine HCL [Catapres] 0.1 mg PO HS 08/05/17 06/05/22 Meloxicam 15 mg PO DAILY 03/14/18 06/05/22 Famotidine [Pepcid] 20 mg PO BID 08/21/20 06/05/22 L.acidoph,Paracasei, B.lactis 1 cap PO DAILY 08/21/20 06/05/22 [Probiotic] Levothyroxine Sodium [Synthroid] 25 mcg PO DAILY 08/21/20 06/05/22 hydroCHLOROthiazide [Hydrodiuril] 25 mg PO DAILY 08/21/20 06/05/22 Loratadine [Claritin] 10 mg PO DAILY PRN 08/23/20 06/05/22 Apixaban [Eliquis] 5 mg PO BID 12/08/20 06/05/22 Losartan Potassium 100 mg PO DAILY 12/08/20 06/05/22 Ascorbic Acid [Vitamin C] 500 mg PO DAILY 06/05/22 06/05/22 Cholecalciferol [Vitamin D3 (25 25 mcg PO DAILY 06/05/22 06/05/22 Mcg = 1000 Iu)] Cyanocobalamin (Vitamin B-12) 1,000 mcg PO DAILY 06/05/22 06/05/22 [Vitamin B-12] Loteprednol Etabonate [Eysuvis] 1 drop BOTH EYES DAILY 06/05/22 06/05/22 Olopatadine HCl [Pataday] 1 drop BOTH EYES HS 06/05/22 06/05/22 Previous Rx's Medication Instructions Recorded Albuterol Inhaler [Ventolin Hfa 2 puff INHALATION Q4HR PRN #1 each 10/01/22 Inhaler] Allergies Allergy/AdvReac Type Severity Reaction Status Date / Time hydrocodone Allergy Nausea & Verified 10/01/22 10:24 Vomiting adhesive tape AdvReac skin Verified 10/01/22 10:24 irritation erythromycin base AdvReac Nausea Verified 10/01/22 10:24 latex AdvReac Rash/Hives Verified 10/01/22 10:24 Review of Systems ROS Statement: Those systems with pertinent positive or pertinent negative responses have been documented in the HPI. ROS Other: All systems not noted in ROS Statement are negative. Constitutional: Denies: fever, chills Eyes: Denies: eye pain ENT: Reports: congestion. Denies: ear pain Respiratory: Reports: cough Cardiovascular: Denies: chest pain Endocrine: Reports: fatigue Gastrointestinal: Denies: abdominal pain Genitourinary: Denies: dysuria Musculoskeletal: Denies: back pain Skin: Denies: rash Neurological: Denies: weakness Past Medical History Past Medical History: Atrial Fibrillation, CVA/TIA, Eye Disorder, GERD/Reflux, Hypertension, Osteoarthritis (OA), Skin Disorder, Thyroid Disorder Additional Past Medical History / Comment(s): Hx migraines, now dx. w/ocular migraines, Hiatal Hernia. Eczema, hx precancer skin lesions. ALYSON Corneal Dystrophy, Macular Degeneration. TIA 09/2017. 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 Osteoporosis. recent blood in stool, possible hemorrhoids per her dr. History of Any Multi-Drug Resistant Organisms: None Reported Past Surgical History: Cholecystectomy, Hysterectomy, Joint Replacement, Orthopedic Surgery Additional Past Surgical History / Comment(s): Fertility surgery, opened tube & repaired. Rt knee meniscus repair. Goiter removed, Partial Thyroidectomy. Left and Right total knee replacement. 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 Has fine veins, diff IV start. Past Psychological History: No Psychological Hx Reported Smoking Status: Never smoker Past Alcohol Use History: None Reported Past Drug Use History: None Reported - Past Family History Mother Family Medical History: Cancer, Hypertension Additional Family Medical History / Comment(s): uterine Father Family Medical History: Coronary Artery Disease (CAD), Hypertension Additional Family Medical History / Comment(s): CABG General Exam Limitations: no limitations General appearance: alert, in no apparent distress Head exam: Present: normocephalic Eye exam: Present: normal appearance, PERRL ENT exam: Present: normal oropharynx Neck exam: Present: normal inspection Respiratory exam: Present: wheezes. Absent: respiratory distress Cardiovascular Exam: Present: regular rate, normal rhythm GI/Abdominal exam: Present: soft. Absent: tenderness Extremities exam: Present: normal inspection. Absent: pedal edema, calf tenderness Neurological exam: Present: alert Psychiatric exam: Present: normal affect, normal mood Skin exam: Present: normal color Course Vital Signs 10/01/22 10/01/22 10/01/22 10:22 10:32 11:40 Temperature 98.2 F Pulse Rate 79 70 Respiratory 20 20 18 Rate Blood Pressure 135/61 146/96 O2 Sat by Pulse 95 96 Oximetry 10/01/22 10/01/22 11:50 11:57 Temperature Pulse Rate 84 86 Respiratory Rate Blood Pressure O2 Sat by Pulse Oximetry Medical Decision Making - Medical Decision Making Patient reevaluated and significantly improved following nebulizer. Patient and family updated. - Radiology Data Interpreted by me: Chest x-ray does not reveal acute process Disposition Clinical Impression: Bronchospasm Disposition: HOME SELF-CARE Condition: Stable Instructions (If sedation given, give patient instructions): Bronchospasm (ED) Additional Instructions: Prescription has been sent to pharmacy. Please do follow-up to primary care physician in the next couple days for recheck. Return for difficulty breathing, fevers, worsening or changing symptoms or other concerns. Prescriptions: Albuterol Inhaler [Ventolin Hfa Inhaler] 2 puff INHALATION Q4HR PRN #1 each PRN Reason: Dyspnea Is patient prescribed a controlled substance at d/c from ED?: No Referrals: Anita Jordan MD [Primary Care Provider] - 1-2 days Time of Disposition: 12:59
[2022-10-01 11:42] VITALS: RESP 18
--- NOTE | 2022-10-01 11:42 | XR ---
EXAMINATION TYPE: XR chest 2V DATE OF EXAM: 10/01/2022 11:24 AM COMPARISON: Chest radiographs from 09/12/2020 TECHNIQUE: XR chest 2V Frontal and lateral views of the chest. CLINICAL INDICATION:Female, 77 years old with history of cough; FINDINGS: Lungs/Pleura: There is no evidence of pleural effusion, focal consolidation, or pneumothorax. Pulmonary vascularity: Unremarkable. Heart/mediastinum: Cardiomediastinal silhouette is unremarkable. Musculoskeletal: No acute osseous pathology. IMPRESSION: No acute cardiopulmonary disease/process.
[2022-10-01 13:07] VITALS: BP 160/81; PULSE 73; TEMP 98.1
== END 2022-10-01 13:07 | disposition home or self-care (01) ==
LOC: EC 09:59
DX: J98.01 Acute bronchospasm (principal); I48.91 Unspecified atrial fibrillation; I10 Essential (primary) hypertension; M19.90 Unspecified osteoarthritis, unspecified site; Z79.1 Long term (current) use of non-steroidal anti-inflammatories (NSAID); Z79.01 Long term (current) use of anticoagulants; Z88.1 Allergy status to other antibiotic agents; Z88.5 Allergy status to narcotic agent; Z91.040 Latex allergy status
CPT/HCPCS: 71046; 94640; 99283

== ENCOUNTER → 2023-03-03 | Outpatient (CLI) | payer MEDICARE ==
--- NOTE | 2023-03-04 09:58 | US ---
EXAMINATION TYPE: US thyroid st tissue head/neck DATE OF EXAM: 03/03/2023 COMPARISON: US 01/07/22 CLINICAL INDICATION: Female, 77 years old with history of E04.1 THYROID NODULE; Nodule. Hx goiter, ri ght lobe thyroid removed in 2010. Patient is on levothyroxine. GLAND SIZE: Right Lobe: Removed Left Lobe: 5.8 x 1.9 x 1.5 cm Overall Parenchyma: heterogeneous Isthmus Thickness: 0.33 cm NODULES RIGHT: nodules measured on right: *Probable residual tissue within right thyroid bed as mentioned on previous: 2.5 x 1.1 x 0.9 cm. LEFT: # of nodules measured on left: 3 1. 1.5 X 1.6 x 1.1 cm, lower mid, mixed cystic and solid, hypoechoic TR 3 nodule, which is wider th an tall, with smooth margins, with echogenic foci. Prior size: 1.1 x 1.0 x 1.4 cm 2. 1.2 X 1.3 x 0.8 cm, mid mid, mixed cystic and solid, hypoechoic TR 4 nodule, which is wider judie n tall, with smooth margins, without echogenic foci. Prior size: 1.1 x 0.7 x 0.9 cm 3. 0.6 X 0.7 x 0.6 cm, lower lateral, solid or almost completely solid, hyperechoic TR 3 nodule, wh ich is wider than tall, with smooth margins, with echogenic foci. Prior size: Does not correlate with prior. ISTHMUS: # of nodules measured in the isthmus: 0 Bilateral neck scanned, no evidence of lymphadenopathy. IMPRESSION: 1. Similar nodular 2.5 cm tissue in the right thyroidectomy bed, probably residual thyroid tissue. 2. 3 nodules on the left, largest is a TR 3 nodule measuring 1.6 cm and has increased from 1.4 cm, pr eviously. Continue to follow. FNA if it reaches 2.5 cm. 3. The second largest is a TR4 nodule measuring 1.3 cm increased from 1.1 cm. Continue to follow. FNA if it reaches 1.5 cm. 2017 ACR TI-RADS LEVEL: *Highest TI-RADS level nodule reported
== END | disposition home or self-care (01) ==
LOC: RADUSWWP 15:31
PROVIDERS: ATTEND Otolaryngology
DX: E04.2 Nontoxic multinodular goiter (principal)
CPT/HCPCS: 76536

== ENCOUNTER → 2023-08-24 | Outpatient (CLI) | payer MEDICARE ==
--- NOTE | 2023-08-25 07:30 | US ---
EXAMINATION TYPE: US thyroid st tissue head/neck DATE OF EXAM: 08/24/2023 COMPARISON: 03/03/23 CLINICAL INDICATION: Female, 78 years old with history of E04.1 NONTOXIC SINGLE THYROID NODULE; Hx of nodules on left thryoid. Right lobe removed 10 years ago. On thyroid medication GLAND SIZE: Right Lobe: Surgically absent cm Left Lobe: 5.5 x 2.1 x 1.7 cm Overall Parenchyma: heterogenous Isthmus Thickness: 0.34 cm NODULES RIGHT: # of nodules measured on right: 0 LEFT: # of nodules measured on left: 2 1. 1.5 X 1.9 x 1.3 cm, lower mid, mixed cystic and solid, hypoechoic nodule, which is wider than ta ll, with lobulated or irregular margins, without echogenic foci. TR5 nodule Prior size: 1.5 x 1.6 x 1.1 cm 2. 1.2 X 1.0 x 0.8 cm, mid mid, mixed cystic and solid, hypoechoic nodule, which is wider than roland l, with lobulated or irregular margins, without echogenic foci. TR5 nodule Prior size: 1.2 x 1.3 x 0.8 cm ISTHMUS: # of nodules measured in the isthmus: 0 Bilateral neck scanned, no evidence of lymphadenopathy. IMPRESSION: TR5 Moderately Suspicious: FNA if ? 1.5 cm; Follow if ? 1 cm at 1, 2, 3, and 5 y
== END | disposition home or self-care (01) ==
LOC: RADUSWWP 15:41
PROVIDERS: ATTEND Otolaryngology
DX: E04.2 Nontoxic multinodular goiter (principal)
CPT/HCPCS: 76536

== ENCOUNTER → 2023-08-24 | Outpatient (CLI) | payer MEDICARE ==
--- NOTE | 2023-08-26 08:53 | MM ---
Reason for Exam: Screening (asymptomatic). Last screening mammogram was performed 12 month(s) ago. Patient History: Menarche at age 15. First Full-Term at age 29. Right ovary removed at age 46. Hysterectomy at age 46. Postmenopausal. Sister had breast cancer, age 66. Risk Values: Kassandra 5 year model risk: 3.5%. NCI Lifetime model risk: 7.0%. Prior Study Comparison: 06/22/2019 Screening Mammogram, [facility]. 08/15/2021 Bilateral Screening Mammogram, [facility]. 08/19/2022 Bilateral MG 3D diag mammo w/cad AL[facility], [facility]. Tissue Density: The breast tissue is almost entirely fat. Findings: Analyzed By CAD. Mass correlates of palpable abnormality approximately 10 cm from the nipple measuring up to 21 mm. There is spiculation. Right breast: There is no suspicious group of microcalcifications or new suspicious mass. Overall Assessment: Incomplete: need additional imaging evaluation, BI-RAD 0 Management: Diagnostic Breast Ultrasound of the left breast. [facility] will attempt to contact patient to return for supplemental views and ultrasound if indicated. Patient should continue monthly self-breast exams. A clinical breast exam by your physician is recommended on an annual basis. This exam should not preclude additional follow-up of suspicious palpable abnormalities. Note on Kassandra scores and lifetime risk: 1. A Kassandra score greater than 3% is considered moderate risk. If this is the case, consider specialist referral to assess eligibility for a risk reducing agent. 2. If overall lifetime risk for the development of breast cancer is 20% or higher, the patient may qualify for future screening with alternating mammogram and breast MRI. Electronically signed and approved by: Chetan Mcrae DO
--- NOTE | 2023-08-26 09:36 | MM ---
EXAM: MG screening mammo w CAD DATE OF EXAM: 08/26/2023 9:29 AM COMPARISON STUDIES: 06/22/2019 Screening Mammogram, [facility]. 08/15/2021 Bilateral Screening Mammogram, [facility]. 08/19/2022 Bilateral MG 3D diag mammo w/cad [facility], [facility]. PATIENT HISTORY: Female, 78 years old with history of Z12.31 ENCNTR SCREEN MAMMOGRAM; , Menarche at age 15. First Full-Term at age 29. Right ovary removed at age 46. Hysterectomy at age 46. Postmenopausal. Sister had breast cancer, age 66. , RISK CALCULATION: Kassandra 5 year model risk: 3.5%. NCI Lifetime model risk: 7.0%. TISSUE DENSITY: Heterogeneously dense FINDINGS: No suspicious masses, constipation distortions. Benign appearing right breast calcifications. ASSESSMENT: 2 - Benign RECOMMENDATION: 1. Screening Mammogram Bilateral in 1 Year . COMMENTS: [facility] will attempt to contact patient to return for supplemental views and ultrasound if indicated. Patient should continue monthly self-breast exams. A clinical breast exam by your physician is recommended on an annual basis. This exam should not preclude additional follow-up of suspicious palpable abnormalities. Note on Kassandra scores and lifetime risk: 1. A Kassandra score greater than 3% is considered moderate risk. If this is the case, consider specialist referral to assess eligibility for a risk reducing agent. 2. If overall lifetime risk for the development of breast cancer is 20% or higher, the patient may qualify for future screening with alternating mammogram and breast MRI. JOSE
== END | disposition home or self-care (01) ==
LOC: RADMAMWWP 15:43
PROVIDERS: ATTEND Family Medicine
DX: Z12.31 Encounter for screening mammogram for malignant neoplasm of breast (principal); Z78.0 Asymptomatic menopausal state; Z80.3 Family history of malignant neoplasm of breast
CPT/HCPCS: 77067

== ENCOUNTER → 2023-09-13 | Outpatient (CLI) | payer MEDICARE ==
--- NOTE | 2023-09-13 11:19 | FL ---
Exam Date: 09/13/2023 11:13 AM. Modified barium swallow for dysphagia. Consistencies administered: Various consistency of barium. Fluoro time: 39 seconds No images were sent to PACS. Please see speech pathology report. DAP: Not reported mGym2 Gycm2
== END | disposition home or self-care (01) ==
LOC: RADFLMAIN 10:42
PROVIDERS: ATTEND Otolaryngology
DX: R13.12 Dysphagia, oropharyngeal phase (principal)
CPT/HCPCS: 74230

== ENCOUNTER → 2024-01-18 | Outpatient (CLI) | payer MEDICARE ==
--- NOTE | 2024-01-19 10:13 | US ---
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 Ankle-brachial indices within normal limits. 2. Toe brachial indices suggestive of moderate to severe disease.
== END | disposition home or self-care (01) ==
LOC: RADUSWWP 09:29
PROVIDERS: ATTEND Family Medicine
DX: I73.9 Peripheral vascular disease, unspecified (principal); I10 Essential (primary) hypertension; R20.0 Anesthesia of skin
CPT/HCPCS: 93922

== ENCOUNTER → 2024-02-09 | Outpatient (CLI) | payer MEDICARE ==
--- NOTE | 2024-02-09 10:24 | MR ---
EXAMINATION TYPE: MR lumbar spine wo con DATE OF EXAM: 02/09/2024 9:13 AM COMPARISON: NONE HISTORY: M51.36 OTHER INTERVERTEBRAL DISC DEGENERATION, LUM Multiplanar, MultiSpin echo imaging of the lumbar spine was performed. L1-L2: Normal disc appearance without desiccation. No herniation, protrusion or disc bulging. No ca nal stenosis is present. Foramina are patent bilaterally. L2-L3: Normal disc appearance without desiccation. No herniation, protrusion or disc bulging. No ca nal stenosis is present. Foramina are patent bilaterally. L3-L4: Severe disc desiccation with vacuum disc. Posterior disc bulge with mild effacement of ventral thecal sac. No evidence of central stenosis or lateral recess stenosis. [id number]-vq-[id number] bilateral n eural foraminal encroachment. L4-L5: Normal disc appearance without desiccation. No herniation, protrusion or disc bulging. No ca nal stenosis is present. Foramina are patent bilaterally. L5-S1: Normal disc appearance without desiccation. No herniation, protrusion or disc bulging. No ca nal stenosis is present. Foramina are patent bilaterally. Lumbar segments are intact. No paraspinal masses are identified. Conus medullaris has a normal appe arance. IMPRESSION: 1. Disc desiccation primarily at L3-4 posterior disc bulge and foraminal encroachment.
== END | disposition home or self-care (01) ==
LOC: RADMRIMAIN 08:06
PROVIDERS: ATTEND Family Medicine
DX: M51.36 Other intervertebral disc degeneration, lumbar region (principal)
CPT/HCPCS: 72148

== ENCOUNTER 2024-07-05 01:27 | Observation (INO) | payer MEDICARE ==
--- NOTE | 2024-07-05 01:44 | ED ---
Abdominal Pain HPI - General Source: patient, RN notes reviewed Mode of arrival: ambulatory Limitations: no limitations - History of Present Illness MD Complaint: abdominal pain, flank pain <Crys Neri - Last Filed: 07/05/24 01:42> <Arya Dowling - Last Filed: 07/14/24 02:13> - General Chief Complaint: Abdominal Pain Stated Complaint: NVD back pain Time Seen by Provider: 07/05/24 01:35 - History of Present Illness Initial Comments: Quick Note: This is a 79-year-old female who presents to the emergency department for nausea, vomiting, diarrhea, and right sided flank/abdominal pain. Symptoms started about 3 days ago while she was still in [place]. States that it started with diarrhea and fevers. This has progressed to nausea and yesterday she started developing pain in the right flank region wrapping around to the front of her abdomen. Denies any history of kidney stones. No longer has her gallbladder or appendix. (Crys Neri) This is a 79 female with flank pain diarrhea while on travel, also nausea and vomiting (Arya Dowling) - Related Data Home Medications Medication Instructions Recorded Confirmed Esomeprazole Magnesium [NexIUM] 20 mg PO DAILY 09/01/15 07/05/24 Vits A,C,E/Lutein/Minerals 1 tab PO BID 09/01/15 07/05/24 [Ocuvite with Lutein Tablet] Fluticasone Nasal [place] [Flonase 2 spr EA NOSTRIL DAILY PRN 08/05/17 07/05/24 Nasal [place]] Multivitamins, Thera [Multivitamin 1 tab PO DAILY 08/05/17 07/05/24 (formulary)] cloNIDine HCL [Catapres] 0.1 mg PO HS 08/05/17 07/05/24 Meloxicam 15 mg PO DAILY 03/14/18 07/05/24 Levothyroxine Sodium [Synthroid] 25 mcg PO DAILY 08/21/20 07/05/24 hydroCHLOROthiazide [Hydrodiuril] 25 mg PO DAILY 08/21/20 07/05/24 Apixaban [Eliquis] 5 mg PO BID 12/08/20 07/05/24 Ascorbic Acid [Vitamin C] 500 mg PO DAILY 06/05/22 07/05/24 Olopatadine HCl [Pataday] 1 drop BOTH EYES HS 06/05/22 07/05/24 Diclofenac Sodium [Voltaren 2 gm TOPICAL QID PRN 07/05/24 07/05/24 Arthritis Pain 1% Gel] Fluorometholone 0.1% Ophth Kayla 1 drop BOTH EYES QAM 07/05/24 07/05/24 [Fml] Elvilxrx-Mvwubcsau-Yptjqfdt 1 applic BOTH EYES DAILY PRN 07/05/24 07/05/24 [Maxitrol Ophth Oint] guaiFENesin [Mucinex] 600 mg PO Q12H PRN 07/05/24 07/05/24 Previous Rx's Medication Instructions Recorded Amoxic-Pot Clav 875-125Mg 1 tab PO Q12HR 5 Days #10 tab 07/07/24 [Augmentin 875-125] Dicyclomine [Bentyl] 10 mg PO BID PRN #10 capsule 07/07/24 Losartan Potassium 50 mg PO DAILY #0 07/07/24 Allergies Allergy/AdvReac Type Severity Reaction Status Date / Time latex Allergy Rash/Hives Verified 07/05/24 07:50 adhesive tape AdvReac skin Verified 07/05/24 07:50 irritation erythromycin base AdvReac anxiety Verified 07/05/24 07:50 hydrocodone AdvReac Nausea & Verified 07/05/24 07:50 Vomiting oxycodone AdvReac Nausea & Verified 07/05/24 07:50 Vomiting Review of Systems ROS Other: All systems not noted in ROS Statement are negative. <Crys Neri - Last Filed: 07/05/24 01:42> ROS Other: All systems not noted in ROS Statement are negative. <Arya Dowling - Last Filed: 07/14/24 02:13> ROS Statement: Those systems with pertinent positive or pertinent negative responses have been documented in the HPI. Past Medical History Past Medical History: Atrial Fibrillation, CVA/TIA, Eye Disorder, GERD/Reflux, Hypertension, Osteoarthritis (OA), Skin Disorder, Thyroid Disorder Additional Past Medical History / Comment(s): Hx migraines, now dx. w/ocular migraines, Hiatal Hernia. Eczema, hx precancer skin lesions. [facility] Corneal Dystrophy, Macular Degeneration. TIA 09/2017. 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 Osteoporosis. recent blood in stool, possible hemorrhoids per her dr. History of Any Multi-Drug Resistant Organisms: None Reported Past Surgical History: Cholecystectomy, Hysterectomy, Joint Replacement, Orthopedic Surgery Additional Past Surgical History / Comment(s): Fertility surgery, opened tube & repaired. Rt knee meniscus repair. Goiter removed, Partial Thyroidectomy. Left and Right total knee replacement. 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 Has fine veins, diff IV start. Past Psychological History: No Psychological Hx Reported Smoking Status: Never smoker Past Alcohol Use History: None Reported Past Drug Use History: None Reported - Past Family History Mother Family Medical History: Cancer, Hypertension Additional Family Medical History / Comment(s): uterine Father Family Medical History: Coronary Artery Disease (CAD), Hypertension Additional Family Medical History / Comment(s): CABG <Crys Neri - Last Filed: 07/05/24 01:42> General Exam Limitations: no limitations <Crys Neri - Last Filed: 07/05/24 01:42> General appearance: alert, in no apparent distress, anxious Head exam: Present: atraumatic, normocephalic, normal inspection Eye exam: Present: normal appearance, PERRL, EOMI. Absent: scleral icterus, conjunctival injection, periorbital swelling ENT exam: Present: normal exam, mucous membranes dry Neck exam: Present: normal inspection. Absent: tenderness, meningismus, lymphadenopathy Respiratory exam: Present: normal lung sounds bilaterally. Absent: respiratory distress, wheezes, rales, rhonchi, stridor Cardiovascular Exam: Present: normal rhythm, tachycardia, normal heart sounds. Absent: systolic murmur, diastolic murmur, rubs, gallop, clicks GI/Abdominal exam: Present: soft, normal bowel sounds. Absent: distended, tenderness, guarding, rebound, rigid Extremities exam: Present: normal inspection, full ROM, normal capillary refill. Absent: tenderness, pedal edema, joint swelling, calf tenderness Back exam: Present: normal inspection Neurological exam: Present: alert, oriented X3, CN II-XII intact Psychiatric exam: Present: normal affect, normal mood Skin exam: Present: warm, dry, intact, normal color. Absent: rash <Arya Dowling - Last Filed: 07/14/24 02:13> - General Exam Comments Initial Comments: Visual Physical Exam Vital signs reviewed General: Well-appearing, nontoxic, no acute distress. Head: Normocephalic, atraumatic Eyes: PERRLA, EOMI ENT: Airway patent Chest: Nonlabored breathing Skin: No visual rash, normal skin tone Neuro: Alert and oriented 3 Musculoskeletal: No gross abnormalities (Crys Neri) Course <Arya Dowling - Last Filed: 07/14/24 02:13> Vital Signs 07/05/24 07/05/24 07/05/24 01:33 03:16 03:36 Temperature 101.5 F H 100.6 F H 98.5 F Pulse Rate 104 H 81 Respiratory 20 18 Rate Blood Pressure 117/74 101/64 O2 Sat by Pulse 93 L 95 Oximetry 07/05/24 07/05/24 07/05/24 05:37 06:13 07:21 Temperature 97.7 F 97.7 F Pulse Rate 70 81 68 Respiratory 18 18 16 Rate Blood Pressure 126/75 125/73 138/65 O2 Sat by Pulse 96 97 98 Oximetry 07/05/24 07/05/24 07/05/24 11:00 12:00 13:00 Temperature Pulse Rate 86 90 90 Respiratory 16 20 16 Rate Blood Pressure 112/61 111/80 118/65 O2 Sat by Pulse 99 98 Oximetry 07/05/24 07/05/24 16:00 17:30 Temperature Pulse Rate 75 68 Respiratory 16 16 Rate Blood Pressure 120/75 135/65 O2 Sat by Pulse 98 98 Oximetry - Reevaluation(s) Reevaluation #1: 07/05/24 04:45 Medical records reviewed (Arya Dowling) Reevaluation #2: 07/05/24 04:45 Patient symptoms unchanging (Arya Dowling) Reevaluation #3: 07/05/24 04:45 Patient informed of results and questions answered (Arya Dowling) Reevaluation #4: Was pt. sent in by a medical professional or institution (Dr., PA, [employer], urgent care, hospital, or chcf...) When possible be specific @ -no Did you speak to anyone other than the patient for history (EMS, parent, family, police, friend...)? What history was obtained from this source @ -no Did you review nursing and triage notes (agree or disagree)? Why? @ -agree Are old charts reviewed (outside hosp., previous admission, EMS record, old EKG, old radiological studies, urgent care reports/EKG's, chcf records)? Report findings @ -yes Differential Diagnosis (chest pain, altered mental status, abdominal pain women, abdominal pain men, vaginal bleeding, weakness, fever, dyspnea, syncope, headache, dizziness, GI bleed, back pain, seizure, CVA, palpatations, mental health, musculoskeletal)? @ -prior EKG interpreted by me (3pts min.). @ -yes X-rays interpreted by me (1pt min.). @ -no CT interpreted by me (1pt min.). @ -yes negative for acute disease U/S interpreted by me (1pt. min.). @ -no What testing was considered but not performed or refused? (CT, X-rays, U/S, labs)? Why? @ -none What meds were considered but not given or refused? Why? @ -none Did you discuss the management of the patient with other professionals (professionals i.e. JOSHUA Mejia, [employer], lab, RT, psych nurse, social services counselor, discharge specialist, teacher, chief business development officer, case assembler)? Give summary @ -no Was smoking cessation discussed for >3mins.? @ -no Was critical care preformed (if so, how long)? @ -no Were there social determinants of health that impacted care today? How? (Homelessness, low income, unemployed, alcoholism, drug addiction, transportation, low edu. Level, literacy, decrease access to med. care, senior care, rehab)? @ -none Was there de-escalation of care discussed even if they declined (Discuss DNR or withdrawal of care, Hospice)? DNR status @ -no What co-morbidities impacted this encounter? (DM, HTN, Smoking, COPD, CAD, Cancer, CVA, ARF, Chemo, Hep., AIDS, mental health diagnosis, sleep apnea, morbid obesity)? @ -none Was patient admitted / discharged? Hospital course, mention meds given and route, prescriptions, significant lab abnormalities, going to OR and other pertinent info. @ - 79 Female to be admitted for colitis persistent nausea vomiting and diarrhea Admitted Undiagnosed new problem with uncertain prognosis? @ -no Drug Therapy requiring intensive monitoring for toxicity (Heparin, Nitro, Insulin, Cardizem)? @ -no Were any procedures done? @ -no Diagnosis/symptom? @ -Colitis nausea vomiting diarrhea Acute, or Chronic, or Acute on Chronic? @ -Acute Uncomplicated (without systemic symptoms) or Complicated (systemic symptoms)? @ -Complicated Side effects of treatment? @ -no Exacerbation, Progression, or Severe Exacerbation? @ -exacerbation Poses a threat to life or bodily function? How? (Chest pain, [place], [place], pneumonia, PE, COPD, DKA, ARF, appy, cholecystitis, CVA, Diverticulitis, Homicidal, Suicidal, threat to staff... and all critical care pts) @ -yes yes extremes of age (Arya Dowling) Reevaluation #5: Differential Abdominal Pain Women: Appendicitis, Cholecystitis, diverticulosis, ischemic bowel, pancreatitis, hepatitis, UTI, gastroenteritis, AAA, incarcerated hernia, bowel obstruction, constipation, inflammatory bowel, hepatitis, peptic ulcer disease, splenic infarction, perforated viscus, vulvitis, ovarian torsion, PID, kidney stone, placenta abruption, this is not meant to be an all-inclusive list (Arya Dowling) Medical Decision Making <Crys Neri - Last Filed: 07/05/24 01:42> - Lab Data Result diagrams: 07/07/24 11:21 07/07/24 11:21 - Radiology Data Radiology results: report reviewed (Abdomen pelvis positive for colitis nausea vomiting diarrhea), image reviewed <Arya Dowling - Last Filed: 07/14/24 02:13> - Medical Decision Making I performed the QuickNote portion of this chart. Signed Crys Neri PA-C. (Crys Neri) 79 Female to be admitted for colitis persistent nausea vomiting and diarrhea (Arya Dowlign) - Lab Data Lab Results 07/05/24 07/05/24 07/05/24 Range/Units 02:13 02:13 02:13 WBC 14.2 H (3.8-10.6) k/uL RBC 4.78 (3.80-5.40) m/uL Hgb 14.1 (11.4-16.0) gm/dL Hct 43.2 (34.0-46.0) % MCV 90.5 (80.0-100.0) fL MCH 29.5 (25.0-35.0) pg MCHC 32.6 (31.0-37.0) g/dL RDW 13.0 (11.5-15.5) % Plt Count 234 (150-450) k/uL MPV 8.8 Neutrophils % 87 % Lymphocytes % 6 % Monocytes % 6 % Eosinophils % 0 % Basophils % 0 % Neutrophils # 12.4 H (1.3-7.7) k/uL Lymphocytes # 0.8 L (1.0-4.8) k/uL Monocytes # 0.8 (0-1.0) k/uL Eosinophils # 0.0 (0-0.7) k/uL Basophils # 0.0 (0-0.2) k/uL Sodium 133 L (137-145) mmol/L Potassium 3.4 L (3.5-5.1) mmol/L Chloride 103 (98-107) mmol/L Carbon Dioxide 23 (22-30) mmol/L Anion Gap 7 mmol/L BUN 20 H (7-17) mg/dL Creatinine 1.06 H (0.52-1.04) mg/dL Est GFR (CKD-EPI)AfAm 59 (>60 ml/min/1.73 sqM) Est GFR (CKD-EPI)NonAf 51 (>60 ml/min/1.73 sqM) Glucose 133 H (74-99) mg/dL Plasma Lactic Acid Shawn 0.9 (0.7-2.0) mmol/L Calcium 8.8 (8.4-10.2) mg/dL Phosphorus 2.7 (2.5-4.5) mg/dL Magnesium 1.6 (1.6-2.3) mg/dL Total Bilirubin 0.5 (0.2-1.3) mg/dL AST 68 H (14-36) U/L ALT 59 H (4-34) U/L Alkaline Phosphatase 99 (38-126) U/L Total Protein 6.8 (6.3-8.2) g/dL Albumin 3.6 (3.5-5.0) g/dL Amylase 44 (30-110) U/L Lipase 131 (23-300) U/L Influenza Type A (PCR) (Not Detectd) Influenza Type B (PCR) (Not Detectd) RSV (PCR) (Not Detectd) SARS-CoV-2 (PCR) (Not Detectd) 07/05/24 Range/Units 02:16 WBC (3.8-10.6) k/uL RBC (3.80-5.40) m/uL Hgb (11.4-16.0) gm/dL Hct (34.0-46.0) % MCV (80.0-100.0) fL MCH (25.0-35.0) pg MCHC (31.0-37.0) g/dL RDW (11.5-15.5) % Plt Count (150-450) k/uL MPV Neutrophils % % Lymphocytes % % Monocytes % % Eosinophils % % Basophils % % Neutrophils # (1.3-7.7) k/uL Lymphocytes # (1.0-4.8) k/uL Monocytes # (0-1.0) k/uL Eosinophils # (0-0.7) k/uL Basophils # (0-0.2) k/uL Sodium (137-145) mmol/L Potassium (3.5-5.1) mmol/L Chloride (98-107) mmol/L Carbon Dioxide (22-30) mmol/L Anion Gap mmol/L BUN (7-17) mg/dL Creatinine (0.52-1.04) mg/dL Est GFR (CKD-EPI)AfAm (>60 ml/min/1.73 sqM) Est GFR (CKD-EPI)NonAf (>60 ml/min/1.73 sqM) Glucose (74-99) mg/dL Plasma Lactic Acid Shawn (0.7-2.0) mmol/L Calcium (8.4-10.2) mg/dL Phosphorus (2.5-4.5) mg/dL Magnesium (1.6-2.3) mg/dL Total Bilirubin (0.2-1.3) mg/dL AST (14-36) U/L ALT (4-34) U/L Alkaline Phosphatase (38-126) U/L Total Protein (6.3-8.2) g/dL Albumin (3.5-5.0) g/dL Amylase (30-110) U/L Lipase (23-300) U/L Influenza Type A (PCR) Not Detected (Not Detectd) Influenza Type B (PCR) Not Detected (Not Detectd) RSV (PCR) Not Detected (Not Detectd) SARS-CoV-2 (PCR) Not Detected (Not Detectd) Disposition <Crys Neri - Last Filed: 07/05/24 01:42> Is patient prescribed a controlled substance at d/c from ED?: No Time of Disposition: 04:30 <Arya Dowling - Last Filed: 07/14/24 02:13> Clinical Impression: Abdominal pain, Colitis, Nausea & vomiting, Diarrhea, Fever Disposition: ADMITTED IP TO THIS HOSP Condition: Serious
[2024-07-05] MEDS: SODIUM CHLORIDE 0.9% 1,000 ML IV STA (02:18)
[2024-07-05] MEDS: KETOROLAC 15 MG/ML 1 ML VIAL IVP STA (02:18)
[2024-07-05] MEDS: ACETAMINOPHEN IV (For NPO) 1,000 MG in EMPTY BAG 1 BAG IVPB ONE (02:20)
[2024-07-05] MEDS: ONDANSETRON 4 MG/2 ML VIAL IVP STA (02:22)
[2024-07-05 02:49] LABS: Basophils % (A) 0 %; Eosinophils % (A) 0 %; HCT 43.2 % (34.0-46.0); HGB 14.1 gm/dL (11.4-16.0); Lymphocytes # (A) 0.8 k/uL (1.0-4.8); Lymphocytes % (A) 6 %; MCH 29.5 pg (25.0-35.0); MCHC 32.6 g/dL (31.0-37.0); MCV 90.5 fL (80.0-100.0); Mean Platelet Volume 8.8; Monocytes # (A) 0.8 k/uL (0-1.0); Monocytes % (A) 6 %; Neutrophils # (A) 12.4 k/uL (1.3-7.7); Neutrophils % (A) 87 %; Platelet Count 234 k/uL (150-450); RBC 4.78 m/uL (3.80-5.40); WBC 14.2 k/uL (3.8-10.6)
[2024-07-05 02:50] LABS: ALT 59 U/L (4-34); AST 68 U/L (14-36); African American GFR (CKD) 59 (>60 ml/min/1.73 sqM); Albumin 3.6 g/dL (3.5-5.0); Alkaline Phosphatase 99 U/L (38-126); Amylase 44 U/L (30-110); Anion Gap 7 mmol/L; Blood Urea Nitrogen 20 mg/dL (7-17); Calcium 8.8 mg/dL (8.4-10.2); Carbon Dioxide 23 mmol/L (22-30); Chloride 103 mmol/L (98-107); Glucose 133 mg/dL (74-99); Lipase 131 U/L (23-300); Magnesium 1.6 mg/dL (1.6-2.3); Non-African American GFR(CKD) 51 (>60 ml/min/1.73 sqM); Phosphorus 2.7 mg/dL (2.5-4.5); Potassium 3.4 mmol/L (3.5-5.1); Sodium 133 mmol/L (137-145); Total Bilirubin 0.5 mg/dL (0.2-1.3); Total Protein 6.8 g/dL (6.3-8.2)
--- NOTE | 2024-07-05 04:35 | CT ---
EXAM: CT Abdomen and Pelvis Without Intravenous Contrast CLINICAL HISTORY: ITS.REASON CT Reason: Right flank pain TECHNIQUE: Axial computed tomography images of the abdomen and pelvis without intravenous contrast. CTDI is 20.4 mGy and DLP is 1248 mGy-cm. This CT exam was performed using one or more of the following dose reduction techniques: automated exposure control, adjustment of the mA and/or kV according to patient size, and/or use of iterative reconstruction technique. COMPARISON: No relevant prior studies available. FINDINGS: Limitations: Limited evaluation in the absence of contrast. Lung bases: Unremarkable. No mass. No consolidation. Mediastinum: Moderate hiatal hernia with thickening. Consider further workup. ABDOMEN: Liver: Unremarkable. Gallbladder and bile ducts: Cholecystectomy changes. No ductal dilation. Pancreas: Unremarkable. No ductal dilation. Spleen: Unremarkable. No splenomegaly. Adrenals: Unremarkable. No mass. Kidneys and ureters: No evidence of radiopaque renal calculi or signs of collecting system dilatation. Stomach and bowel: Diffuse inflammatory change extending from the cecum to the proximal descending colon. Additional mild thickening within the sigmoid colon without evidence of inflamed diverticula. Please note that the inflammatory changes most prominent at the cecum and ascending colon. Findings are favored to relate to colitis. Consider correlation with laboratory values. Colonic diverticulosis. No obstruction. PELVIS: Appendix: No findings to suggest acute appendicitis. Bladder: Unremarkable. No stones. Reproductive: Hysterectomy changes. ABDOMEN and PELVIS: Intraperitoneal space: Unremarkable. No free air. No significant fluid collection. Bones/joints: Degenerative changes in the spine. No acute fracture. No dislocation. Soft tissues: Umbilical hernia containing fat. Vasculature: Atherosclerotic disease. No abdominal aortic aneurysm. Lymph nodes: Mildly prominent right prashanth-abdominal mesenteric lymph nodes measure up to 1.0 cm in short axis which are favored to be reactive in nature. IMPRESSION: 1. Limited evaluation in the absence of contrast. 2. No evidence of radiopaque renal calculi or signs of collecting system dilatation. 3. Diffuse inflammatory change extending from the cecum to the proximal descending colon. Additional mild thickening within the sigmoid colon without evidence of inflamed diverticula. Please note that the inflammatory changes most prominent at the cecum and ascending colon. Findings are favored to relate to colitis. Consider correlation with laboratory values. 4. Mildly prominent right prashanth-abdominal mesenteric lymph nodes measure up to 1.0 cm in short axis which are favored to be reactive in nature. 5. Moderate hiatal hernia with thickening. Consider further workup. <MYCVCSECTION> Communications: 07/05/24 04:43 Verify Receipt Verified receipt with cutter grind tool technician Wolf for Dr. Dowling on 07/05 04:43 (-04:00)
[2024-07-05] MEDS ORDERED: NALOXONE 0.4 MG/ML 1 ML VIAL IV PRN (04:43)
[2024-07-05] MEDS ORDERED: MORPHINE SULFATE 4 MG/ML SYRINGE IV PRN (04:43)
[2024-07-05] MEDS: SODIUM CHLORIDE 0.9% 1,000 ML IV SCH (05:11)
[2024-07-05] MEDS: AMPICILLIN-SULBACTAM 3 GM in SODIUM CHLORIDE 0.9% 100 ML IVPB ONE (05:11)
[2024-07-05] MEDS: POTASSIUM BICARBONATE/CIT AC 20 MEQ TABLET.EFF PO ONE ×2 (05:32→05:43)
[2024-07-05] MEDS: AMPICILLIN-SULBACTAM 3 GM in SODIUM CHLORIDE 0.9% 100 ML IVPB STA (05:46)
--- NOTE | 2024-07-05 08:01 | P.CON ---
Consult Note - . Consult date: 07/05/24 Assessment/Plan:: This is a 79-year-old female who presents to the emergency department for nausea, vomiting, diarrhea, and right sided flank/abdominal pain. Symptoms started about 3 days ago while she was still in [place]. She states symptoms started with diarrhea and fevers. This has progressed to nausea and yesterday she started developing pain in the right flank region wrapping around to the front of her abdomen. She had a CT-AP which showed thickening and inflammation of her cecum and right colon suggestive of colitis. Review of Systems Those systems with pertinent positive or pertinent negative responses have been documented in the HPI. Past Medical History Past Medical History: Atrial Fibrillation, CVA/TIA, Eye Disorder, GERD/Reflux, Hypertension, Osteoarthritis (OA), Skin Disorder, Thyroid Disorder Additional Past Medical History / Comment(s): Hx migraines, now dx. w/ocular migraines, Hiatal Hernia. Eczema, hx precancer skin lesions. ALYSON Corneal Dystrophy, Macular Degeneration. TIA 09/2017. 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 Osteoporosis. recent blood in stool, possible hemorrhoids per her dr. History of Any Multi-Drug Resistant Organisms: None Reported Past Surgical History: Cholecystectomy, Hysterectomy, Joint Replacement, Orthopedic Surgery Additional Past Surgical History / Comment(s): Fertility surgery, opened tube & repaired. Rt knee meniscus repair. Goiter removed, Partial Thyroidectomy. Left and Right total knee replacement. 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 Has fine veins, diff IV start. Past Psychological History: No Psychological Hx Reported Smoking Status: Never smoker Past Alcohol Use History: None Reported Past Drug Use History: None Reported - Past Family History Mother Family Medical History: Cancer, Hypertension Additional Family Medical History / Comment(s): uterine Father Family Medical History: Coronary Artery Disease (CAD), Hypertension Additional Family Medical History / Comment(s): CABG General Exam VSS General appearance: alert, in no apparent distress Head exam: Present: atraumatic, normocephalic, normal inspection Eye exam: Present: normal appearance, PERRL, EOMI. Absent: scleral icterus, conjunctival injection, periorbital swelling ENT exam: Present: normal exam, mucous membranes moist Neck exam: Present: normal inspection. Absent: tenderness, meningismus, lymphadenopathy Respiratory exam: Present: normal lung sounds bilaterally. Absent: respiratory distress, wheezes, rales, rhonchi, stridor Cardiovascular Exam: Present: regular rate, normal rhythm, normal heart sounds. Absent: systolic murmur, diastolic murmur, rubs, gallop, clicks GI/Abdominal exam: Present: soft, normal bowel sounds. Absent: distended, tenderness, guarding, rebound, rigid Extremities exam: Present: normal inspection, full ROM, normal capillary refill. Absent: tenderness, pedal edema, joint swelling, calf tenderness Back exam: Present: normal inspection Neurological exam: Present: alert, oriented X3, CN II-XII intact Psychiatric exam: Present: normal affect, normal mood Skin exam: Present: warm, dry, intact, normal color. Absent: rash 79 year old female with colitis -CT-AP reviewed -NPO -Patient received unasyn in ER. Recommend continuing antibiotic treatment -IV fluids -Pain and Nausea Control Thank you for this consult. We will continue to follow this patient during her hospital stay. Clyde Hardin DO [facility] [phone]
[2024-07-05] MEDS: ONDANSETRON 4 MG/2 ML VIAL IVP PRN (09:19)
[2024-07-05] MEDS ORDERED: NEOMYCIN-POLYMYXIN-DEXAMETH OINT 3.5 GM TUBE BOTH EYES PRN (10:34)
[2024-07-05] MEDS ORDERED: FLUTICASONE NASAL 50MCG/SPRAY 16GM BTL EA NOSTRIL PRN (10:34)
[2024-07-05] MEDS: FLUOROMETHOLONE 0.1% OPHTH DROPS 5 ML BTL BOTH EYES SCH (12:09)
[2024-07-05] MEDS: LEVOTHYROXINE 25 MCG TAB PO SCH (12:09)
[2024-07-05] MEDS: PANTOPRAZOLE 40 MG/10 ML VIAL IVP SCH (12:09)
--- NOTE | 2024-07-05 15:53 | P.HPIM ---
History of Present Illness H&P Date: 07/05/24 This is a very pleasant 79-year-old female who presented to the emergency department with abdominal pain with multiple episodes of diarrhea and fever and chills. Patient follows with Dr. Jordan in the outpatient setting with a past medical history of atrial fibrillation, CVA, GERD, hypertension, osteoarthritis, thyroid disorder, history of migraines with ocular migraines, macular degeneration, obesity. Patient reports she was in [place] in the last few days prior to returning home patient started developing some chills and generalized weakness and fatigue and not much of an appetite. Patient report that she started developing episodes of diarrhea with concerns of fever on Wednesday into Wednesday night when she returned home. Patient denies any sick contacts although does report history of diverticulitis with no complications and never requiring surgery and having lower abdominal pain. On admission to the ER patient underwent CT abdomen which showed diffuse inflammatory changes ex tending from the cecum to the proximal descending colon with additional mild thickening within the sigmoid colon without evidence of inflamed diverticula and findings are favoring colitis with moderate hiatal hernia with thickening. Labs reviewed and patient did present to the hospital with a mildly elevated white count of 14.2, hemoglobin is stable at 14.1, platelets are 234, sodium is 133 with a potassium of 3.4, BUN 20, creatinine 1.06, magnesium 1.6, AST 68, ALT 59, amylase 44, lipase 131. Virology testing including influenza, RSV, COVID were all negative. On initial presentation to the ER patient did present with a fever Tmax 101.5. Patient was admitted with antibiotics and general surgery on consult. REVIEW OF SYSTEMS: CONSTITUTIONAL: Reports of fever and chills, no malaise, reports of generalized weakness and fatigue. HEENT: No recent visual problems or hearing problems. Denied any sore throat. CARDIOVASCULAR: No chest pain, orthopnea, PND, no palpitations, no syncope. PULMONARY: No shortness of breath, no cough, no hemoptysis. GASTROINTESTINAL: Reports of frequent episodes of diarrhea, reports nausea, no vomiting, reports lower abdominal pain. NEUROLOGICAL: Patient reports headaches and also has history of migraines, no weakness, no numbness. HEMATOLOGICAL: Denies any bleeding or petechiae. GENITOURINARY: Denies any burning micturition, frequency, or urgency. MUSCULOSKELETAL/RHEUMATOLOGICAL: Denies any joint pain, swelling, or any muscle pain. Patient reported generalized muscle weakness and fatigue ENDOCRINE: Denies any polyuria or polydipsia. The rest of the 14-point review of systems is negative. PHYSICAL EXAMINATION: GENERAL: The patient is alert and oriented x3, . Well developed, well nourished. Elderly appearing, obese HEENT: Pupils are round and equally reacting to light. EOMI. No scleral icterus. No conjunctival pallor. Normocephalic, atraumatic. No pharyngeal erythema. No thyromegaly. CARDIOVASCULAR: S1 and S2 present. No murmurs, rubs, or gallops. PULMONARY: Diminished breath sounds bilaterally otherwise chest is clear to auscultation, no wheezing or crackles. ABDOMEN: Soft, mildly tender of the lower abdominal region, obese, nondistended, normoactive bowel sounds. No palpable organomegaly. MUSCULOSKELETAL: No joint swelling or deformity. EXTREMITIES: No cyanosis, clubbing, or pedal edema. NEUROLOGICAL: Gross neurological examination did not reveal any focal deficits. Diffusely weak SKIN: No rashes. Assessment: Abdominal pain with nausea/vomiting/diarrhea with concerns of acute colitis as noted on CT imaging Leukocytosis and fevers, present on admission secondary to above History of atrial fibrillation on Eliquis History of CVA/TIA GERD Hypertension Osteoarthritis history Thyroid history History of ocular migraines with macular degeneration Obesity with a BMI of 39.5 History of diverticulitis in the past GI prophylaxis DVT prophylaxis Full code Plan: Patient is currently n.p.o. on antibiotics and general surgery was consulted. Dr. Hardin evaluated the patient recommending continued antibiotics n.p.o. and gentle hydration Will monitor overnight and evaluate for any further fevers. Patient has been afebrile for 24 hours now. Continue Tylenol as needed for fever or mild pain Continue gentle hydration and follow-up on repeat labs Home medications reviewed and resumed as appropriate The impression and plan of care has been dictated by Kanwal Santos, Nurse Practitioner as directed. Dr. Didier MD I have performed a history and examination and MDM of this patient, discussed the same with the dictator, and agree with the dictator's assessment and plan as written ,documented as a scribe. Based on total visit time, I have performed more than 50% of the visit. Past Medical History Past Medical History: Atrial Fibrillation, CVA/TIA, Eye Disorder, GERD/Reflux, Hypertension, Osteoarthritis (OA), Skin Disorder, Thyroid Disorder Additional Past Medical History / Comment(s): Hx migraines, now dx. w/ocular migraines, Hiatal Hernia. Eczema, hx precancer skin lesions. ALYSON Corneal Dystrophy, Macular Degeneration. TIA 09/2017. 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 Osteoporosis. recent blood in stool, possible hemorrhoids per her dr. History of Any Multi-Drug Resistant Organisms: None Reported Past Surgical History: Cholecystectomy, Hysterectomy, Joint Replacement, Orthopedic Surgery Additional Past Surgical History / Comment(s): Fertility surgery, opened tube & repaired. Rt knee meniscus repair. Goiter removed, Partial Thyroidectomy. Left and Right total knee replacement. 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 Has fine veins, diff IV start. Past Psychological History: No Psychological Hx Reported Smoking Status: Never smoker Past Alcohol Use History: None Reported Past Drug Use History: None Reported - Past Family History Mother Family Medical History: Cancer, Hypertension Additional Family Medical History / Comment(s): uterine Father Family Medical History: Coronary Artery Disease (CAD), Hypertension Additional Family Medical History / Comment(s): CABG Medications and Allergies Home Medications Medication Instructions Recorded Confirmed Type Esomeprazole Magnesium [NexIUM] 20 mg PO DAILY 09/01/15 07/05/24 History Vits A,C,E/Lutein/Minerals 1 tab PO BID 09/01/15 07/05/24 History [Ocuvite with Lutein Tablet] Fluticasone Nasal [place] [Flonase 2 spr EA NOSTRIL DAILY PRN 08/05/17 07/05/24 History Nasal [place]] Multivitamins, Thera [Multivitamin 1 tab PO DAILY 08/05/17 07/05/24 History (formulary)] cloNIDine HCL [Catapres] 0.1 mg PO HS 08/05/17 07/05/24 History Meloxicam 15 mg PO DAILY 03/14/18 07/05/24 History Famotidine [Pepcid] 20 mg PO BID 08/21/20 07/05/24 History Levothyroxine Sodium [Synthroid] 25 mcg PO DAILY 08/21/20 07/05/24 History hydroCHLOROthiazide [Hydrodiuril] 25 mg PO DAILY 08/21/20 07/05/24 History Apixaban [Eliquis] 5 mg PO BID 12/08/20 07/05/24 History Losartan Potassium 100 mg PO DAILY 12/08/20 07/05/24 History Ascorbic Acid [Vitamin C] 500 mg PO DAILY 06/05/22 07/05/24 History Olopatadine HCl [Pataday] 1 drop BOTH EYES HS 06/05/22 07/05/24 History Diclofenac Sodium [Voltaren 2 gm TOPICAL QID PRN 07/05/24 07/05/24 History Arthritis Pain 1% Gel] Fluorometholone 0.1% Ophth Kayla 1 drop BOTH EYES QAM 07/05/24 07/05/24 History [Fml] Pwlijmgz-Yachwurhg-Bpbkyvpt 1 applic BOTH EYES DAILY PRN 07/05/24 07/05/24 History [Maxitrol Ophth Oint] guaiFENesin [Mucinex] 600 mg PO Q12H PRN 07/05/24 07/05/24 History Allergies Allergy/AdvReac Type Severity Reaction Status Date / Time latex Allergy Rash/Hives Verified 07/05/24 07:50 adhesive tape AdvReac skin Verified 07/05/24 07:50 irritation erythromycin base AdvReac anxiety Verified 07/05/24 07:50 hydrocodone AdvReac Nausea & Verified 07/05/24 07:50 Vomiting oxycodone AdvReac Nausea & Verified 07/05/24 07:50 Vomiting Physical Exam Vitals: Vital Signs Temp Pulse Resp BP Pulse Ox 07/05/24 07:21 68 16 138/65 98 07/05/24 06:13 97.7 F 81 18 125/73 97 07/05/24 05:37 97.7 F 70 18 126/75 96 07/05/24 03:36 98.5 F 07/05/24 03:16 100.6 F H 81 18 101/64 95 07/05/24 01:33 101.5 F H 104 H 20 117/74 93 L Intake and Output 07/04/24 07/05/24 07/05/24 22:59 06:59 14:59 Other: Weight 111.13 kg Results CBC & Chem 7: 08/28/24 02:13 07/05/24 02:13 Labs: Abnormal Lab Results - Last 24 Hours (Table) 07/05/24 07/05/24 Range/Units 02:13 02:13 WBC 14.2 H (3.8-10.6) k/uL Neutrophils # 12.4 H (1.3-7.7) k/uL Lymphocytes # 0.8 L (1.0-4.8) k/uL Sodium 133 L (137-145) mmol/L Potassium 3.4 L (3.5-5.1) mmol/L BUN 20 H (7-17) mg/dL Creatinine 1.06 H (0.52-1.04) mg/dL Glucose 133 H (74-99) mg/dL AST 68 H (14-36) U/L ALT 59 H (4-34) U/L
[2024-07-05] MEDS: APIXABAN 5 MG TAB PO SCH (20:45)
[2024-07-05] MEDS: KETOTIFEN 0.025% OPHTH DROPS 5 ML BTL BOTH EYES SCH (21:36)
--- NOTE | 2024-07-06 09:24 | P.PN ---
Subjective patient seen and evaluated bedside. Patient is doing well most to minimal abdominal pain no nausea vomiting. Tolerating diet Objective - Vital Signs Vital signs: Vital Signs Temp 98.5 F 07/06/24 07:18 Pulse 77 07/06/24 07:18 Resp 15 07/06/24 07:18 BP 126/71 07/06/24 07:18 Pulse Ox 96 07/06/24 07:18 FiO2 Intake & Output 07/05/24 07/06/24 07/06/24 18:59 06:59 18:59 Weight 111.13 kg Other: # Voids 3 # Bowel Movements 3 - Exam gen: nad cv: rrr pul: non labored breathing abd: soft, non tender to palption, no guarding or rebound tenderness - Labs CBC & Chem 7: 07/05/24 02:13 07/05/24 02:13 Assessment and Plan Assessment: 79-year-old female with colitis Abdominal pain improving Continue IV antibiotics Advance diet as tolerated Anticipate discharge within the next 24-48 hours Discussed with patient regarding outpatient colonoscopy, last colonoscopy was 4 years ago Time with Patient: Less than 30
[2024-07-06 10:59] LABS: Basophils # (A) 0.02 X 10*3/uL (0.00-0.10); Basophils % (A) 0.2 %; Eosinophils # (A) 0.04 X 10*3/uL (0.04-0.35); Eosinophils % (A) 0.4 %; HCT 38.1 % (37.2-46.3); HGB 12.2 g/dL (12.0-15.0); Lymphocytes # (A) 1.37 X 10*3/uL (0.90-5.00); MCH 28.9 pg (27.0-32.0); MCV 90.3 FL (80.0-97.0); Mean Platelet Volume 10.8 FL (9.5-12.2); Monocytes # (A) 1.21 X 10*3/uL (0.20-1.00); Monocytes % (A) 10.6 %; NRBC Per 100 WBC 0 X 10*3/uL (0.00-0.01); Neutrophils # (A) 8.74 X 10*3/uL (1.80-7.70); Neutrophils % (A) 76.5 %; Platelet Count 217 X 10*3/uL (140-440); RBC 4.22 X 10*6/uL (4.10-5.20); RDW 13.9 % (11.5-14.5); WBC 11.41 X 10*3/uL (4.50-10.00)
[2024-07-06 11:17] LABS: ALT 69 U/L (8-44); AST 60 U/L (13-35); Albumin 3.4 g/dL (3.8-4.9); Albumin/Globulin Ratio 1.31 Ratio (1.60-3.17); Alkaline Phosphatase 83 U/L (41-126); BUN/Creat Ratio 17.11 Ratio (12.00-20.00); Blood Urea Nitrogen 15.4 mg/dL (9.0-27.0); Calcium 7.9 mg/dL (8.7-10.3); Carbon Dioxide 21.7 mmol/L (21.6-31.8); Chloride 105 mmol/L (96-109); Globulin 2.6 g/dL (1.6-3.3); Glucose 87 mg/dL (70-110); Lipase 32 U/L (14-63); Magnesium 1.7 mg/dL (1.5-2.4); Phosphorus 2.6 mg/dL (2.4-5.1); Potassium 3.4 mmol/L (3.5-5.5); Sodium 136 mmol/L (135-145); Total Bilirubin 0.2 mg/dL (0.3-1.2)
[2024-07-06 16:58] LABS: Appearance,Urine Cloudy (Clear); Bacteria,Urine Rare /hpf; Bilirubin,Urine Negative (Negative); Blood,Urine Moderate (Negative); Color,Urine Yellow; Glucose,Urine (UA) Negative (Negative); Ketones,Urine 2+ (Negative); Leukocyte Esterase,Urine Negative (Negative); Mucus,Urine Occasional /hpf; Nitrite,Urine Negative (Negative); Protein,Urine 1+ (Negative); RBC,Urine 33 /hpf (0-5); Specific Gravity,Urine 1.027 (1.001-1.035); Squamous Epithelial Cell,Urine 5 /hpf (0-4); Urobilinogen,Urine <2.0 mg/dL (<2.0); WBC,Urine 10 /hpf (0-5)
--- NOTE | 2024-07-07 05:25 | P.PN ---
Subjective Progress Note Date: 07/06/24 This is a very pleasant 79-year-old female who presented to the emergency department with abdominal pain with multiple episodes of diarrhea and fever and chills. Patient follows with Dr. Jordan in the outpatient setting with a past medical history of atrial fibrillation, CVA, GERD, hypertension, ost eoarthritis, thyroid disorder, history of migraines with ocular migraines, macular degeneration, obesity. Patient reports she was in [place] in the last few days prior to returning home patient started developing some chills and generalized weakness and fatigue and not much of an appetite. Patient report that she started developing episodes of diarrhea with concerns of fever on Wednesday into Wednesday night when she returned home. Patient denies any sick contacts although does report history of diverticulitis with no complications and never requiring surgery and having lower abdominal pain. On admission to the ER patient underwent CT abdomen which showed diffuse inflammatory changes extending from the cecum to the proximal descending colon with additional mild thickening within the sigmoid colon without evidence of inflamed diverticula and findings are favoring colitis with moderate hiatal hernia with thickening. Labs reviewed and patient did present to the hospital with a mildly elevated white count of 14.2, hemoglobin is stable at 14.1, platelets are 234, sodium is 133 with a potassium of 3.4, BUN 20, creatinine 1.06, magnesium 1.6, AST 68, ALT 59, amylase 44, lipase 131. Virology testing including influenza, RSV, COVID were all negative. On initial presentation to the ER patient did present with a fever Tmax 101.5. Patient was admitted with antibiotics and general surgery on consult. 07/06/2024 Patient seen in follow-up today with general surgery following for acute co litis. Patient reports she continues to have loose stool although is somewhat improved and is maintained on gentle hydration. General surgery is following and has started on clears and if tolerating can advance slowly with discussion of possible discharge planning in the next 24 hours. Patient is afebrile although did have a low-grade temp last night and white count is trending down. No reports of chest pain or shortness of breath. Patient has been up and walking to the bathroom with no difficulties and denies any dizziness or lightheadedness. No further nausea or vomiting noted. Review of systems: Constitutional: No reports of fatigue, fever, or chills Cardiovascular: No reports of chest pain or palpitations Respiratory: No reports of shortness of breath or cough GI: No reports of nausea, vomiting, reports of diarrhea : No reports of dysuria or retention Neurovascular: No reports of weakness or numbness All medications have been reviewed The rest of the 14-point review of systems is negative. PHYSICAL EXAMINATION: GENERAL: The patient is alert and oriented x3, . Well developed, well nourished. Elderly appearing, obese HEENT: Pupils are round and equally reacting to light. EOMI. No scleral icterus. No conjunctival pallor. Normocephalic, atraumatic. No pharyngeal erythema. No thyromegaly. CARDIOVASCULAR: S1 and S2 present. No murmurs, rubs, or gallops. PULMONARY: Diminished breath sounds bilaterally otherwise chest is clear to auscultation, no wheezing or crackles. ABDOMEN: Soft, mildly tender of the lower abdominal region, obese, nondistended, normoactive bowel sounds. No palpable organomegaly. MUSCULOSKELETAL: No joint swelling or deformity. EXTREMITIES: No cyanosis, clubbing, or pedal edema. NEUROLOGICAL: Gross neurological examination did not reveal any focal deficits. Diffusely weak SKIN: No rashes. Assessment: Abdominal pain with nausea/vomiting/diarrhea with concerns of acute colitis as noted on CT imaging Leukocytosis and fevers, present on admission secondary to above History of atrial fibrillation on Eliquis History of CVA/TIA GERD Hypertension Osteoarthritis history Thyroid history History of ocular migraines with macular degeneration Obesity with a BMI of 39.5 History of diverticulitis in the past GI prophylaxis DVT prophylaxis Full code Plan: Patient was n.p.o. with general surgery following and has been advanced to clear liquids and will slowly advance as tolerated. Patient tolerating clear liquids with no reports of further nausea or vomiting. Patient continues to have loose stools although feels somewhat improved General surgery Dr. Hardin evaluated the patient recommending continued conservative management and gentle hydration with no plans of surgical intervention at this time Will monitor overnight and evaluate for any further fevers. Patient has been afebrile for 24 hours now. Continue Tylenol as needed for fever or mild pain Continue gentle hydration and follow-up on repeat labs Home medications reviewed and resumed as appropriate Possible discharge planning in the next 24 hours The impression and plan of care has been dictated by Kanwal Santos, Nurse Practitioner as directed. Dr. Didier MD I have performed a history and examination and MDM of this patient, discussed the same with the dictator, and agree with the dictator's assessment and plan as written ,documented as a scribe. Based on total visit time, I have performed more than 50% of the visit. Objective - Vital Signs Vital signs: Vital Signs Temp 98.5 F 07/06/24 07:18 Pulse 77 07/06/24 07:18 Resp 15 07/06/24 07:18 BP 126/71 07/06/24 07:18 Pulse Ox 96 07/06/24 07:18 FiO2 Intake & Output 07/05/24 07/06/24 07/06/24 18:59 06:59 18:59 Weight 111.13 kg Other: # Voids 3 # Bowel Movements 3 - Labs CBC & Chem 7: 07/06/24 06:22 07/06/24 06:22
[2024-07-07] MEDS: AMPICILLIN-SULBACTAM 3 GM in SODIUM CHLORIDE 0.9% 100 ML IVPB SCH (07:33)
[2024-07-07 08:14] VITALS: BP 149/84; PULSE 73; RESP 18; TEMP 99.3
--- NOTE | 2024-07-07 11:39 | P.PN ---
Subjective Progress Note Date: 07/07/24 Patient seen and examined at bedside. She denies abdominal pain. Tolerating diet. States she had large bowel movement yesterday. Objective - Vital Signs Vital signs: Vital Signs Temp 99.3 F 07/07/24 07:20 Pulse 73 07/07/24 07:20 Resp 18 07/07/24 07:20 BP 149/84 07/07/24 07:20 Pulse Ox 97 07/07/24 07:20 FiO2 Intake & Output 07/06/24 07/07/24 07/07/24 18:59 06:59 18:59 Other: Voiding Method Toilet # Voids 5 3 # Bowel Movements 2 - Constitutional General appearance: Present: cooperative, morbidly obese - Respiratory Details: No difficulty with respiration - Gastrointestinal Gastrointestinal Comment(s): Soft, nontender, nondistended, no rebound, no guarding - Psychiatric Psychiatric: Present: A&O x's 3 - Labs CBC & Chem 7: 07/06/24 06:22 07/06/24 06:22 Labs: Abnormal Lab Results - Last 24 Hours (Table) 07/06/24 Range/Units 05:21 Urine Appearance Cloudy H (Clear) Urine Protein 1+ H (Negative) Urine Ketones 2+ H (Negative) Urine Blood Moderate H (Negative) Urine RBC 33 H (0-5) /hpf Urine WBC 10 H (0-5) /hpf Ur Squamous Epith Cells 5 H (0-4) /hpf Urine Bacteria Rare H (None) /hpf Urine Mucus Occasional H (None) /hpf Microbiology - Last 24 Hours (Table) 07/05/24 05:10 Blood Culture - Preliminary Blood Assessment and Plan Plan: 79-year-old female with colitis that appears to be improving. She is tolerating diet. Abdominal pain has resolved. Patient is surgically stable for discharge with outpatient antibiotics. Can follow-up as an outpatient for colonoscopy which would be recommended.
--- NOTE | 2024-07-07 12:30 | P.DS ---
Providers Date of admission: 07/05/24 04:44 Attending physician: Lissette Delgado Consults: 07/05/24 04:43 Consult Physician Routine Consulting Provider: Clyde Hardin Consult Reason/Comments: colitis Do you want consulting provider notified?: Yes Primary care physician: Anita Jordan Hospital Course: Final Diagnosis Abdominal pain with nausea/vomiting/diarrhea with concerns of acute colitis as noted on CT imaging Leukocytosis and fevers, present on admission secondary to above History of atrial fibrillation on Eliquis History of CVA/TIA GERD Hypertension Osteoarthritis history Thyroid history History of ocular migraines with macular degeneration Obesity with a BMI of 39.5 History of diverticulitis in the past GI prophylaxis DVT prophylaxis Full code Discharge disposition Will for discharge home patient to follow-up with Dr. Morales in the office information has been given patient is recommended for an outpatient colonoscopy after complete resolution of the colitis. She will continue on oral Augmentin for the next 5 days. Patient is also given a short course of Bentyl to take as needed for abdominal cramping. She is advised to advance her diet slowly as tolerated repeat blood work in 2 to 3 days and follow-up with her PCP Dr. Jordan in the office. Hospital Course This is a very pleasant 79-year-old female who presented to the emergency department with abdominal pain with multiple episodes of diarrhea and fever and chills. Patient follows with Dr. Jordan in the outpatient setting with a past medical history of atrial fibrillation, CVA, GERD, hypertension, osteoarthritis, thyroid disorder, history of migraines with ocular migraines, macular degeneration, obesity. Patient reports she was in [place] in the last few days prior to returning home patient started developing some chills and generalized weakness and fatigue and not much of an appetite. Patient report that she started developing episodes of diarrhea with concerns of fever on Wednesday into Wednesday night when she returned home. Patient denies any sick contacts although does report history of diverticulitis with no complications and never requiring surgery and having lower abdominal pain. On admission to the ER patient underwent CT abdomen which showed diffuse inflammatory changes extending from the cecum to the proximal descending colon with additional mild thickening within the sigmoid colon without evidence of inflamed diverticula and findings are favoring colitis with moderate hiatal hernia with thickening. Labs reviewed and patient did present to the hospital with a mildly elevated white count of 14.2, hemoglobin is stable at 14.1, platelets are 234, sodium is 133 with a potassium of 3.4, BUN 20, creatinine 1.06, magnesium 1.6, AST 68, ALT 59, amylase 44, lipase 131. Virology testing including influenza, RSV, COVID were all negative. On initial presentation to the ER patient did present with a fever Tmax 101.5. Patient was admitted with antibiotics and general surgery on consult. 07/06/2024 Patient seen in follow-up today with general surgery following for acute colitis. Patient reports she continues to have loose stool although is somewhat improved and is maintained on gentle hydration. General surgery is following and has started on clears and if tolerating can advance slowly with discussion of possible discharge planning in the next 24 hours. Patient is afebrile although did have a low-grade temp last night and white count is trending down. No reports of chest pain or shortness of breath. Patient has been up and walking to the bathroom with no difficulties and denies any dizziness or lightheadedness. No further nausea or vomiting noted. 07/07/2024 Evaluated in follow-up she had a large soft normal brown bowel movement today. He is not reporting any significant abdominal pain but did have some mild abdominal cramping this morning. She was cleared by Dr. Morales for general surgery. Diet will be advanced slowly as tolerated and as mentioned above yary teran be cleared medically for discharge home. She has been up and ambulate without difficulty no shortness of breath no chest pain no nausea vomiting or diarrhea. No dizziness or lightheadedness noted. Medically she is stable. Please see Medication reconciliation for list of current medications. Thank you for allowing us to participate in the care of this patient The impression and plan of care has been dictated by Kathy Dominguez, Nurse Practitioner as directed. Dr. Didier MD I have performed a history and physical examination and medical decision making of this patient, discussed the same with the dictator, and agree with the dictators assessment and plan as written, documented as a scribe. Based on total visit time, I have performed more than 50% of this visit. Patient Condition at Discharge: Good Plan - Discharge Summary Discharge Rx Participant: No New Discharge Prescriptions: New Amoxic-Pot Clav 875-125Mg [Augmentin 875-125] 1 tab PO Q12HR 5 Days #10 tab Dicyclomine [Bentyl] 10 mg PO BID PRN #10 capsule PRN Reason: Cramp Continue Esomeprazole Magnesium [NexIUM] 20 mg PO DAILY Vits A,C,E/Lutein/Minerals [Ocuvite with Lutein Tablet] 1 tab PO BID Multivitamins, Thera [Multivitamin (formulary)] 1 tab PO DAILY cloNIDine HCL [Catapres] 0.1 mg PO HS Fluticasone Nasal [place] [Flonase Nasal [place]] 2 spr EA NOSTRIL DAILY PRN PRN Reason: Allergy Symptoms Meloxicam 15 mg PO DAILY hydroCHLOROthiazide [Hydrodiuril] 25 mg PO DAILY Levothyroxine Sodium [Synthroid] 25 mcg PO DAILY Apixaban [Eliquis] 5 mg PO BID Olopatadine HCl [Pataday] 1 drop BOTH EYES HS guaiFENesin [Mucinex] 600 mg PO Q12H PRN PRN Reason: Congestion Ascorbic Acid [Vitamin C] 500 mg PO DAILY Fluorometholone 0.1% Ophth Kayla [Fml] 1 drop BOTH EYES QAM Diclofenac Sodium [Voltaren Arthritis Pain 1% Gel] 2 gm TOPICAL QID PRN PRN Reason: Pain Nuqlznrw-Mfgiquybi-Nssqxxyq [Maxitrol Ophth Oint] 1 applic BOTH EYES DAILY PRN PRN Reason: Dry Eye(S) Changed Losartan Potassium 50 mg PO DAILY #0 Discontinued Famotidine [Pepcid] 20 mg PO BID Discharge Medication List Esomeprazole Magnesium [NexIUM] 20 mg PO DAILY 09/01/15 [History] Vits A,C,E/Lutein/Minerals [Ocuvite with Lutein Tablet] 1 tab PO BID 09/01/15 [History] Fluticasone Nasal [place] [Flonase Nasal [place]] 2 spr EA NOSTRIL DAILY PRN 08/05/17 [History] Multivitamins, Thera [Multivitamin (formulary)] 1 tab PO DAILY 08/05/17 [History] cloNIDine HCL [Catapres] 0.1 mg PO HS 08/05/17 [History] Meloxicam 15 mg PO DAILY 03/14/18 [History] Levothyroxine Sodium [Synthroid] 25 mcg PO DAILY 08/21/20 [History] hydroCHLOROthiazide [Hydrodiuril] 25 mg PO DAILY 08/21/20 [History] Apixaban [Eliquis] 5 mg PO BID 12/08/20 [History] Ascorbic Acid [Vitamin C] 500 mg PO DAILY 06/05/22 [History] Olopatadine HCl [Pataday] 1 drop BOTH EYES HS 06/05/22 [History] Diclofenac Sodium [Voltaren Arthritis Pain 1% Gel] 2 gm TOPICAL QID PRN 07/05/24 [History] Fluorometholone 0.1% Ophth Kayla [Fml] 1 drop BOTH EYES QAM 07/05/24 [History] Qlowhimv-Bjzrprfgw-Mbkieisv [Maxitrol Ophth Oint] 1 applic BOTH EYES DAILY PRN 07/05/24 [History] guaiFENesin [Mucinex] 600 mg PO Q12H PRN 07/05/24 [History] Amoxic-Pot Clav 875-125Mg [Augmentin 875-125] 1 tab PO Q12HR 5 Days #10 tab 07/07/24 [Rx] Dicyclomine [Bentyl] 10 mg PO BID PRN #10 capsule 07/07/24 [Rx] Losartan Potassium 50 mg PO DAILY #0 07/07/24 [Rx] Follow up Appointment(s)/Referral(s): Anita Jordan MD [Primary Care Provider] - 1-2 days Eliseo Morales DO [Doctor of Osteopathic Medicine] - 2 Weeks ([place] Office: [address] [place] [address]) Ambulatory/Diagnostic Orders: Basic Metabolic Panel [LAB.AMB] Time Frame: 4 Days, Location: None Selected Activity/Diet/Wound Care/Special Instructions: Need to schedule outpatient colonoscopy with Dr. Morales on discharge Discharge Disposition: HOME SELF-CARE
[2024-07-07 15:47] LABS: Blood Urea Nitrogen 9.1 mg/dL (9.0-27.0); Carbon Dioxide 21.2 mmol/L (21.6-31.8); Chloride 109 mmol/L (96-109); Glucose 98 mg/dL (70-110); Magnesium 1.5 mg/dL (1.5-2.4); Potassium 3.4 mmol/L (3.5-5.5); Sodium 141 mmol/L (135-145)
[2024-07-07 16:39] LABS: Basophils # (A) 0.02 X 10*3/uL (0.00-0.10); Basophils % (A) 0.2 %; Eosinophils # (A) 0.16 X 10*3/uL (0.04-0.35); Eosinophils % (A) 1.9 %; HGB 11.8 g/dL (12.0-15.0); Lymphocytes # (A) 1.98 X 10*3/uL (0.90-5.00); MCH 29.5 pg (27.0-32.0); MCHC 31.9 g/dL (32.0-37.0); MCV 92.5 FL (80.0-97.0); Mean Platelet Volume 11.2 FL (9.5-12.2); Monocytes # (A) 0.88 X 10*3/uL (0.20-1.00); Monocytes % (A) 10.2 %; NRBC Per 100 WBC 0 X 10*3/uL (0.00-0.01); Neutrophils # (A) 5.52 X 10*3/uL (1.80-7.70); Neutrophils % (A) 64.2 %; Platelet Count 227 X 10*3/uL (140-440); RDW 13.9 % (11.5-14.5)
== END 2024-07-07 13:45 | disposition home or self-care (01) ==
LOC: EC 01:27 → 4SSUR 04:44
PROVIDERS: ADMIT Hospitalist; ATTEND Hospitalist
DX: R10.9 Unspecified abdominal pain (principal); R11.2 Nausea with vomiting, unspecified; R93.3 Abnormal findings on diagnostic imaging of other parts of digestive tract; D72.829 Elevated white blood cell count, unspecified; I48.91 Unspecified atrial fibrillation; K21.9 Gastro-esophageal reflux disease without esophagitis; I10 Essential (primary) hypertension; M19.90 Unspecified osteoarthritis, unspecified site; G43.009 Migraine without aura, not intractable, without status migrainosus; H35.30 Unspecified macular degeneration; E66.9 Obesity, unspecified; M81.0 Age-related osteoporosis without current pathological fracture; Z87.19 Personal history of other diseases of the digestive system; Z68.39 Body mass index [BMI] 39.0-39.9, adult; Z79.1 Long term (current) use of non-steroidal anti-inflammatories (NSAID); Z79.899 Other long term (current) drug therapy; Z82.49 Family history of ischemic heart disease and other diseases of the circulatory system; Z90.710 Acquired absence of both cervix and uterus; Z96.653 Presence of artificial knee joint, bilateral; Z79.01 Long term (current) use of anticoagulants; Z86.73 Personal history of transient ischemic attack (TIA), and cerebral infarction without residual deficits
CPT/HCPCS: 96376 ×4; 96366; 96365; 96367; 96375; 99285; 36415; 80053 ×2; 80048; 82150; 83605; 83690 ×2; 83735 ×3; 84100 ×2; 85025 ×3; 81001; 87040; 87636; 74176; G0378 ×3; J2405; J0295 ×2; J0131; J1885; J2470 ×3

== ENCOUNTER → 2024-08-25 | Outpatient (CLI) | payer MEDICARE ==
--- NOTE | 2024-08-25 12:44 | BD ---
EXAMINATION TYPE: Axial Bone Density DATE OF EXAM: 08/25/2024 CLINICAL HISTORY: 79 years old Female. ICD-10 CODE: M85.80 OTH DISRD OF BONE DENSI Height: 65 Weight: 244 FRAX RISK QUESTIONS: Glucocorticoids (More than 3mos): yes, eye meds (Ex: prednisone, prednisolone, methylprednisolone, dexamethasone, and hydrocortisone). History of Fracture in Adulthood: yes Secondary Osteoporosis: yes 3. Menopause before 45: yes at 46 RISK FACTORS HISTORY OF: hx of left leg fracture and left foot, hx of bilat TKRs, hx of colitis, macular degeneration retina, osteoarthritis, MEDICATIONS: bp meds, steroidal eye drops, vit d and calcium refulx meds, pain meds, cholesterol meds, nsaids Thyroid Medications: yes, synt. product for about 6 yrs EXAM MEASUREMENTS: Bone mineral densitometry was performed using the [employer] System. Bone mineral density as measured about the Lumbar spine is: ----- L1-L4(G/cm2): 1.338 T Score Values are as follows: ----- L1: 1.2 ----- L2: 0.3 ----- L3: 2.2 ----- L4: 1.5 ----- L1-L4: 1.3 Z Score Values are as follows: ----- L1: 1.8 ----- L2: 1.0 ----- L3: 2.8 ----- L4: 2.1 ----- L1-L4: 1.9 Bone mineral density has: Increased 8.5% since study of: 08.15.2021 Bone mineral density about the R hip (g/cm2): 0.839 Bone mineral density about the L hip (g/cm2): 0.804 T Score values are as follows: -----R Neck: -1.0 -----L Neck: -1.4 -----R Total: -1.3 -----L Total: -1.6 Z Score values are as follows: -----R Neck: 0.2 -----L Neck: -0.1 -----R Total: -0.3 -----L Total: -0.6 Bone mineral density has: Decreased -1.3% since study of: 08.15.2021 FRAX%s: The graph provided illustrates a 23.5% chance for a major osteoporotic fx and a 4.9% chance f or the hips probability for fx in 10 years time. IMPRESSION: Osteopenia (T Score between -2.5 and -1). There is slightly increased risk of fracture and the patient may be considered for treatment. Re-Screen 2-5 years. NOTE: T-SCORE=SD OF THE YOUNG ADULT MEAN. [facility], , 08/25/2024 12:42 PM
--- NOTE | 2024-08-29 09:30 | MM ---
Reason for Exam: Screening (asymptomatic). Last screening mammogram was performed 12 month(s) ago. Patient History: Menarche at age 15. First Full-Term at age 29. Right ovary removed at age 46. Hysterectomy at age 46. Postmenopausal. Sister had breast cancer, age 66. Risk Values: Kassandra 5 year model risk: 3.4%. NCI Lifetime model risk: 6.5%. Prior Study Comparison: 08/15/2021 Bilateral Screening Mammogram, [facility]. 08/19/2022 Bilateral MG 3D diag mammo w/cad [facility], [facility]. 08/24/2023 Bilateral MG screening mammo w CAD, [facility]. Tissue Density: There are scattered areas of fibroglandular density. Findings: Analyzed By CAD. There is no suspicious group of microcalcifications or new suspicious mass in either breast. Overall Assessment: Negative, BI-RAD 1 Management: Screening Mammogram of both breasts in 1 year. . Patient should continue monthly self-breast exams. A clinical breast exam by your physician is recommended on an annual basis. This exam should not preclude additional follow-up of suspicious palpable abnormalities. Note on Kassandra scores and lifetime risk: 1. A Kassandra score greater than 3% is considered moderate risk. If this is the case, consider specialist referral to assess eligibility for a risk reducing agent. 2. If overall lifetime risk for the development of breast cancer is 20% or higher, the patient may qualify for future screening with alternating mammogram and breast MRI. [facility], , 08/29/2024 9:27 AM. Electronically signed and approved by: Arsalan Perez M.D. Radiologis
== END | disposition home or self-care (01) ==
LOC: RADMAMWWP 10:19
PROVIDERS: ATTEND Family Medicine
DX: Z12.31 Encounter for screening mammogram for malignant neoplasm of breast (principal); M85.89 Other specified disorders of bone density and structure, multiple sites; R92.323 Mammographic fibroglandular density, bilateral breasts; Z78.0 Asymptomatic menopausal state; Z80.3 Family history of malignant neoplasm of breast; Z90.722 Acquired absence of ovaries, bilateral
CPT/HCPCS: 77063; 77067; 77080

== ENCOUNTER 2024-09-05 07:03 | Day surgery (SDC) | payer MEDICARE ==
[2024-09-04 10:43] VITALS: BMI 39.2
[~2024-09-05 07:03] MED LIST changes: +ALPRAZolam 0.25 MG TAB PO PRN; +ALPRAZolam 0.5 MG TAB PO PRN; +ATORVASTATIN 80 MG TAB PO STA; -LACTATED RINGERS 1,000 ML IV SCH; -LIDOCAINE 1% (10MG/ML) FOR IV START INTRADERMA PRN; +NITROGLYCERIN SL TABS 0.4 MG TAB SUBLINGUAL PRN
[2024-09-05] MEDS: SODIUM CHLORIDE 0.9% 1,000 ML in EMPTY BAG 1 BAG IV SCH (07:15)
[2024-09-05] MEDS: ASPIRIN 325 MG TAB PO STA (07:15)
[2024-09-05 07:24] VITALS: RESP 16; TEMP 97.4
[2024-09-05] MEDS: HEPARIN SODIUM,PORCINE 10,000 UNIT in SODIUM CHLORIDE 0.9% 1,000 ML IRRIGATION PRN (09:11)
[2024-09-05] MEDS: HEPARIN SODIUM,PORCINE (1 ML) 2,500 UNIT in SODIUM CHLORIDE 0.9% 250 ML IRRIGATION PRN (09:11)
[2024-09-05] MEDS: IV FLUID CONTINUATION 600 ML IV ONE (09:36)
[2024-09-05] MEDS: MIDAZOLAM 2 MG/2 ML VIAL IVP ONE (09:51)
[2024-09-05] MEDS: LIDOCAINE 1% INJ 10MG/ML (20 ML MDV) SQ ONE ×2 (09:54→09:55)
[2024-09-05] MEDS: VERAPAMIL SYRINGE (5 MG/10 ML) INTRAARTER ONE (09:56)
[2024-09-05] MEDS: HEPARIN SODIUM 1,000 UN/ML (10ML VL) IVP ONE (09:57)
[2024-09-05] MEDS: IOPAMIDOL-370 200ML BTL INJ ONE ×2 (10:01)
[2024-09-05] MEDS ORDERED: RX INFO: IV CONTRAST WAS GIVEN 1 EACH MISC MISCELLANE PRN (10:10)
--- NOTE | 2024-09-05 10:12 | P.PCN ---
Date of Procedure: 09/05/24 Operative Findings: CARDIAC CATHETERIZATION PERFORMING PHYSICIAN: Jeremie Oquendo MD, RPVI PROCEDURE PERFORMED: 1. Selective right and left coronary angiogram 2. Left heart catheterization 3. Ultrasound-guided access of the right radial artery INDICATION: Symptomatic 79-year-old female patient with abnormal stress test COMPLICATION: None APPROACH: Right radial artery LEVEL OF SEDATION: Moderate with a sedation length of 11 minutes PROCEDURE DESCRIPTION: After obtaining an informed consent, the patient was brought to cardiac central lab technician. Local anesthesia was performed using lidocaine subcutaneously. The right radial artery was cannulated using Seldinger technique, the guidewire passed easily, following that we advanced a 5-Omani sheath dilator assembly, the wire and dilator were removed and sheath was flushed. Following that, 2 mg of verapamil along with 5000 unit heparin were given. Selective right and left coronary angiogram using a 6-Omani JR4 and JL 3.5 catheters. Following that we did left heart catheterization using 6-Omani pigtail catheter. The procedure was completed there was no complication. SELECTIVE CORONARY ANGIOGRAM: The right coronary artery: Large-caliber vessel and a dominant vessel and angiographically normal Left main: Is angiographically normal The left circumflex: Large-caliber vessel nondominant vessel with no evidence of high-grade stenosis The left anterior descending artery: Large-caliber vessel appears to be angiographically normal and gives rise into a large diagonal branch which seems to be normal HEMODYNAMICS: The LVEDP was 10 mmHg with no significant gradient across aortic valve CONCLUSION: 1. Normal coronary angiogram 2. Normal left-sided filling pressure POSTPROCEDURE MANAGEMENT: Medical treatment
[2024-09-05] MEDS ORDERED: SODIUM CHLORIDE 0.9% 1,000 ML IV SCH (10:15)
[2024-09-05 14:05] VITALS: BP 157/76; PULSE 66
== END 2024-09-05 14:10 | disposition home or self-care (01) ==
LOC: CATHCVL 07:03
PROVIDERS: ATTEND Internal Medicine Interventional Cardiology
DX: R94.39 Abnormal result of other cardiovascular function study (principal); I20.0 Unstable angina; I48.0 Paroxysmal atrial fibrillation; I10 Essential (primary) hypertension; E78.00 Pure hypercholesterolemia, unspecified; I73.9 Peripheral vascular disease, unspecified; I77.810 Thoracic aortic ectasia; I08.0 Rheumatic disorders of both mitral and aortic valves; I65.23 Occlusion and stenosis of bilateral carotid arteries; Z79.890 Hormone replacement therapy; Z79.01 Long term (current) use of anticoagulants; Z79.899 Other long term (current) drug therapy; Z87.74 Personal history of (corrected) congenital malformations of heart and circulatory system; Z86.73 Personal history of transient ischemic attack (TIA), and cerebral infarction without residual deficits; Z88.5 Allergy status to narcotic agent; Z88.1 Allergy status to other antibiotic agents; Z91.040 Latex allergy status; Z82.49 Family history of ischemic heart disease and other diseases of the circulatory system
CPT/HCPCS: 93458; C1769; C1894; J2250; J1644 ×3; J2003; Q9967

== ENCOUNTER 2024-09-08 23:05 | Emergency (ER) | payer MEDICARE ==
[2024-09-08 23:10] VITALS: RESP 18; TEMP 98.5
--- NOTE | 2024-09-09 00:36 | ED ---
General Adult HPI - General Chief complaint: Recheck/Abnormal Lab/Rx Stated complaint: Post op pain Time Seen by Provider: 09/09/24 00:15 Source: patient Mode of arrival: ambulatory - History of Present Illness Initial comments: Patient is a 79-year-old female past medical history atrial fibrillation on Eliquis, CAD, prior CVA, recent heart cath presenting today for right wrist pain and swelling. Patient states that she had a heart cath performed on Wednesday by Dr. Barnhart. This was done for an abnormal stress test. Was told cath was normal. Today was using computer throughout the day and about an hour prior to arrival began noticing increased bruising pain and swelling around her right wrist. States pain is spontaneously improving. Did feel some tightness around the wrist as well. Of note since that her cath is had intermittent right sided mild shoulder-chest pain. Non radiating. Not currently present. Of breath, hemoptysis, fevers, chills, abdominal pain nausea, vomiting, diuresis, lower extremity swelling. - Related Data Home Medications Medication Instructions Recorded Confirmed Esomeprazole Magnesium [NexIUM] 20 mg PO DAILY 09/01/15 09/05/24 Vits A,C,E/Lutein/Minerals 1 tab PO BID 09/01/15 09/05/24 [Ocuvite with Lutein Tablet] Fluticasone Nasal Dix [Flonase 2 spr EA NOSTRIL DAILY PRN 08/05/17 09/05/24 Nasal Dix] Multivitamins, Thera [Multivitamin 1 tab PO DAILY 08/05/17 09/05/24 (formulary)] cloNIDine HCL [Catapres] 0.1 mg PO HS 08/05/17 09/05/24 Meloxicam 15 mg PO DAILY 03/14/18 09/05/24 Levothyroxine Sodium [Synthroid] 25 mcg PO DAILY 08/21/20 09/05/24 Diclofenac Sodium [Voltaren 2 gm TOPICAL QID PRN 07/05/24 09/04/24 Arthritis Pain 1% Gel] Nhdoephd-Dtorwbsmb-Ynmilugo 1 applic BOTH EYES DAILY PRN 07/05/24 09/05/24 [Maxitrol Ophth Oint] guaiFENesin [Mucinex] 600 mg PO Q12H PRN 07/05/24 09/05/24 Famotidine [Pepcid] 20 mg PO BID 09/04/24 09/05/24 Ketotifen Fumarate [Alaway] 1 drop BOTH EYES BID 09/04/24 09/05/24 Losartan Potassium 100 mg PO DAILY 09/04/24 09/05/24 Allergies Allergy/AdvReac Type Severity Reaction Status Date / Time latex Allergy Rash/Hives Verified 09/08/24 23:09 adhesive tape AdvReac skin Verified 09/08/24 23:09 irritation erythromycin base AdvReac anxiety/stomach Verified 09/08/24 23:09 issues hydrocodone AdvReac Nausea & Verified 09/08/24 23:09 Vomiting oxycodone AdvReac Nausea & Verified 09/08/24 23:09 Vomiting Review of Systems ROS Statement: Those systems with pertinent positive or pertinent negative responses have been documented in the HPI. ROS Other: All systems not noted in ROS Statement are negative. Past Medical History Past Medical History: Atrial Fibrillation, CVA/TIA, Eye Disorder, GERD/Reflux, Hearing Disorder / Deafness, Hypertension, Osteoarthritis (OA), Skin Disorder, Thyroid Disorder Additional Past Medical History / Comment(s): Hx migraines, now dx. w/ocular migraines, Hiatal Hernia. Eczema, hx precancer skin lesions. ALYSON Corneal Dystrophy, Macular Degeneration. TIA 09/2017. 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 Osteoporosis. Hx colitis Jul 2024 hosptialized x 3 days. Low vision. Hole in heart History of Any Multi-Drug Resistant Organisms: None Reported Past Surgical History: Cholecystectomy, Heart Catheterization, Hysterectomy, Joint Replacement, Orthopedic Surgery Additional Past Surgical History / Comment(s): Fertility surgery, opened tube & repaired. Rt knee meniscus repair. Goiter removed, Partial Thyroidectomy. Left and Right total knee replacement. Colonoscopy, EGD, SURESH, Amplatzer Septal Occluder-device inserted 2019 (to cover holes in heart) Past Anesthesia/Blood Transfusion Reactions: Previous Problems w/ Anesthesia Additional Past Anesthesia/Blood Transfusion Reaction / Comment(s): Pt's vocal cord was damaged during thyroid surgery, was told not to have tube put down her throat unless absolutley necessary. Difficult IV start-small veins. Past Psychological History: No Psychological Hx Reported Smoking Status: Never smoker Past Alcohol Use History: None Reported Past Drug Use History: None Reported - Past Family History Mother Family Medical History: Cancer, Hypertension Additional Family Medical History / Comment(s): uterine Father Family Medical History: Coronary Artery Disease (CAD), Hypertension Additional Family Medical History / Comment(s): CABG Sister(s) Family Medical History: Cancer Additional Family Medical History / Comment(s): Breast cancer. General Exam - General Exam Comments Initial Comments: PE: CONSTITUTIONAL: No apparent distress, well appearing SKIN: Warm, dry, no jaundice, hives or petechiae. Round bruising on the palmar aspect right wrist, palpable ulnar and radial pulse, no palpable thrill, small amount of swelling at palmar aspect right wrist EYES: Pupils are equally round, extraocular movements intact without nystagmus, clear conjunctiva, non-icteric sclera HENT: Normocephalic, atraumatic, moist mucus membranes, oropharynx clear without exudates NECK: , Full range of motion, normal appearance PULMONARY: Clear to auscultation without wheezes, rhonchi, or rales, normal excursion, no accessory muscle use and no stridor CARDIOVASCULAR: Regular rate, rhythm, normal S1 and S2. No appreciated murmurs, rubs or gallops. Strong radial pulses with intact distal perfusion. No lower extremity edema GASTROINTESTINAL: Soft, active bowel sounds throughout, non-tender, non- distended, no palpable masses, no rebound or guarding. No hepatosplenomegaly GENITOURINARY: MUSCULOSKELETAL: Extremities have no gross deformity, no edema, redness, or swelling. No calf swelling NEUROLOGIC:_a/o x 3, GCS 15, normal mentation and speech. Moves all extremities x 4 without motor or sensory deficit PSYCHIATRIC:_normal mood and affect, thought process is clear and linear Course Vital Signs 09/08/24 09/09/24 09/09/24 23:07 01:43 02:51 Temperature 98.5 F Pulse Rate 76 80 84 Respiratory 18 18 18 Rate Blood Pressure 198/83 176/96 173/80 O2 Sat by Pulse 95 97 98 Oximetry EKG Findings - EKG Comments: EKG Findings:: Sinus bradycardia, rate 50 bpm, MS interval 163 ms, QRS duration 98 ms, QT/QTc 425/421 ms, normal axis, no ST elevations or depressions, no arrhythmia, To EKG performed on 09/12/2020, no significant changes from prior Medical Decision Making - Medical Decision Making Was pt. sent in by a medical professional or institution (JOSHUA Mejia, DOOR WORKER, urgent care, hospital, or assisted...) When possible be specific @ -[No] Did you speak to anyone other than the patient for history (EMS, parent, family, police, friend...)? What history was obtained from this source @ -[No] Did you review nursing and triage notes (agree or disagree)? Why? @ -[I reviewed and agree with nursing and triage notes] Were old charts reviewed (outside hosp., previous admission, EMS record, old EKG, old radiological studies, urgent care reports/EKG's, assisted records)? Report findings @ -[No old charts were reviewed] Differential Diagnosis (chest pain, altered mental status, abdominal pain women, abdominal pain men, vaginal bleeding, weakness, fever, dyspnea, syncope, headache, dizziness, GI bleed, back pain, seizure, CVA, palpatations, mental health, musculoskeletal)? @ -[not applicable] EKG interpreted by me (3pts min.). @ -[As above] X-rays interpreted by me (1pt min.). @ -[None done] CT interpreted by me (1pt min.). @ -[None done] U/S interpreted by me (1pt. min.). @ -[None done] What testing was considered but not performed or refused? (CT, X-rays, U/S, labs)? Why? @ -[None] What meds were considered but not given or refused? Why? @ -[None] Did you discuss the management of the patient with other professionals (professionals i.e. JOSHUA Mejia, DOOR WORKER, lab, RT, psych nurse, social services technician, body engineer, teacher, chief information security officer, gearcase assembler)? Give summary @ -[No] Was smoking cessation discussed for >3mins.? @ -[No] Was critical care preformed (if so, how long)? @ -[No] Were there social determinants of health that impacted care today? How? (Homelessness, low income, unemployed, alcoholism, drug addiction, transportation, low edu. Level, literacy, decrease access to med. care, usp, rehab)? @ -[No] Was there de-escalation of care discussed even if they declined (Discuss DNR or withdrawal of care, Hospice)? @ -[No] What co-morbidities impacted this encounter? (DM, HTN, Smoking, COPD, CAD, Cancer, CVA, ARF, Chemo, Hep., AIDS, mental health diagnosis, sleep apnea, morbid obesity)? @ -[None] Was patient admitted / discharged? Hospital course, mention meds given and route, prescriptions, significant lab abnormalities, going to OR and other pertinent info. @ -[hospital course] charged Is a pleasant 79-year-old female status post heart cath on Wednesday presenting for right wrist pain, swelling intermittent right sided chest pain. Patient well-appearing assessment. Bruising along right wrist though no hematoma. 2+ ulnar and radial pulse palpated, extremities neurovascularly intact. Labs and imaging reviewed. Grossly within normal limits. Abnormal values not concerning for acute pathology related to presenting complaint. Undiagnosed new problem with uncertain prognosis? @ -[No] Drug Therapy requiring intensive monitoring for toxicity (Heparin, Nitro, Insulin, Cardizem)? @ -[No] Were any procedures done? @ -[No] Diagnosis/symptom? @ -[default] Acute, or Chronic, or Acute on Chronic? @ -[default] Uncomplicated (without systemic symptoms) or Complicated (systemic symptoms)? @ -[default] Side effects of treatment? @ -[No] Exacerbation, Progression, or Severe Exacerbation? @ -[No] Poses a threat to life or bodily function? How? (Chest pain, [place], CO, pneumonia, PE, COPD, DKA, ARF, appy, cholecystitis, CVA, Diverticulitis, Homicidal, Suicidal, threat to staff... and all critical care pts) @ -[No] - Lab Data Result diagrams: 09/09/24 00:52 09/09/24 00:52 Lab Results 09/09/24 09/09/24 09/09/24 Range/Units 00:52 00:52 00:52 WBC 9.5 (3.8-10.6) k/uL RBC 4.37 (3.80-5.40) m/uL Hgb 13.0 (11.4-16.0) gm/dL Hct 40.6 (34.0-46.0) % MCV 93.0 (80.0-100.0) fL MCH 29.6 (25.0-35.0) pg MCHC 31.9 (31.0-37.0) g/dL RDW 13.6 (11.5-15.5) % Plt Count 247 (150-450) k/uL MPV 8.6 Neutrophils % 65 % Lymphocytes % 21 % Monocytes % 7 % Eosinophils % 4 % Basophils % 0 % Neutrophils # 6.2 (1.3-7.7) k/uL Lymphocytes # 2.0 (1.0-4.8) k/uL Monocytes # 0.7 (0-1.0) k/uL Eosinophils # 0.4 (0-0.7) k/uL Basophils # 0.0 (0-0.2) k/uL PT 9.7 L (10.0-12.5) sec INR 0.9 (<1.2) APTT 24.4 (22.0-30.0) sec Sodium 137 (137-145) mmol/L Potassium 4.8 (3.5-5.1) mmol/L Chloride 108 H (98-107) mmol/L Carbon Dioxide 26 (22-30) mmol/L Anion Gap 3 mmol/L BUN 23 H (7-17) mg/dL Creatinine 0.80 (0.52-1.04) mg/dL Est GFR (CKD-EPI)AfAm 82 (>60 ml/min/1.73 sqM) Est GFR (CKD-EPI)NonAf 72 (>60 ml/min/1.73 sqM) Glucose 97 (74-99) mg/dL Calcium 9.3 (8.4-10.2) mg/dL Total Bilirubin 0.6 (0.2-1.3) mg/dL AST 42 H (14-36) U/L ALT 24 (4-34) U/L Alkaline Phosphatase 82 (38-126) U/L Troponin I (0.000-0.034) ng/mL Total Protein 7.1 (6.3-8.2) g/dL Albumin 3.8 (3.5-5.0) g/dL 09/09/24 Range/Units 00:52 WBC (3.8-10.6) k/uL RBC (3.80-5.40) m/uL Hgb (11.4-16.0) gm/dL Hct (34.0-46.0) % MCV (80.0-100.0) fL MCH (25.0-35.0) pg MCHC (31.0-37.0) g/dL RDW (11.5-15.5) % Plt Count (150-450) k/uL MPV Neutrophils % % Lymphocytes % % Monocytes % % Eosinophils % % Basophils % % Neutrophils # (1.3-7.7) k/uL Lymphocytes # (1.0-4.8) k/uL Monocytes # (0-1.0) k/uL Eosinophils # (0-0.7) k/uL Basophils # (0-0.2) k/uL PT (10.0-12.5) sec INR (<1.2) APTT (22.0-30.0) sec Sodium (137-145) mmol/L Potassium (3.5-5.1) mmol/L Chloride (98-107) mmol/L Carbon Dioxide (22-30) mmol/L Anion Gap mmol/L BUN (7-17) mg/dL Creatinine (0.52-1.04) mg/dL Est GFR (CKD-EPI)AfAm (>60 ml/min/1.73 sqM) Est GFR (CKD-EPI)NonAf (>60 ml/min/1.73 sqM) Glucose (74-99) mg/dL Calcium (8.4-10.2) mg/dL Total Bilirubin (0.2-1.3) mg/dL AST (14-36) U/L ALT (4-34) U/L Alkaline Phosphatase (38-126) U/L Troponin I <0.012 (0.000-0.034) ng/mL Total Protein (6.3-8.2) g/dL Albumin (3.5-5.0) g/dL Disposition Clinical Impression: Right wrist pain, Chest pain Disposition: HOME SELF-CARE Condition: Good Instructions (If sedation given, give patient instructions): Heart Catheterization (DC) Additional Instructions: Every disease is a spectrum and a small chance still exists that a serious condition could develop, for this reason, please monitor yourself closely for new, changing or worsening symptoms, symptoms that persist beyond 48 hours, large amount of swelling, uncontrollable pain, numbness, chest pain, difficulty in breathing, pale or blue color to your hand, fever, inability to tolerate/keep down fluids or your medications, inability to follow up with outpatient providers as instructed and should you experience these symptoms or should you have any further concerns for your wellbeing please return to the ED or call 911 immediately. PLEASE call your primary care physician as soon as possible to arrange / discuss plan for followup appointment. Appointment in the next 1-3 days is strongly encouraged if possible. PLEASE let us know here before you leave if there is anything further we can do to be of any assistance. Take care and feel Better! Is patient prescribed a controlled substance at d/c from ED?: No Referrals: Anita Jordan MD [Primary Care Provider] - 1-2 days
[2024-09-09 01:07] LABS: Basophils % (A) 0 %; Eosinophils # (A) 0.4 k/uL (0-0.7); Eosinophils % (A) 4 %; HCT 40.6 % (34.0-46.0); Lymphocytes % (A) 21 %; MCH 29.6 pg (25.0-35.0); MCHC 31.9 g/dL (31.0-37.0); Mean Platelet Volume 8.6; Monocytes # (A) 0.7 k/uL (0-1.0); Monocytes % (A) 7 %; Neutrophils # (A) 6.2 k/uL (1.3-7.7); Neutrophils % (A) 65 %; Platelet Count 247 k/uL (150-450); RBC 4.37 m/uL (3.80-5.40); RDW 13.6 % (11.5-15.5); WBC 9.5 k/uL (3.8-10.6)
--- NOTE | 2024-09-09 01:09 | US ---
EXAMINATION TYPE: US upper ext pseudo RT DATE OF EXAM: 09/09/2024 COMPARISON: NONE CLINICAL INDICATION: Female, 79 years old with history of recent cath, right wrist swelling; Pain at right wrist, pt s/p heart cath with right radial approach 3 days ago TECHNIQUE: Right wrist FINDINGS: No evidence of pseudoaneurysm right radial artery at puncture site No suspicious focal fluid collection or hematoma at this level. IMPRESSION: As above. [facility], , 09/09/2024 1:07 AM
[2024-09-09 01:20] LABS: INR 0.9 (<1.2); Partial Thromboplastin Time 24.4 sec (22.0-30.0); Prothrombin Time 9.7 sec (10.0-12.5)
[2024-09-09 01:24] LABS: ALT 24 U/L (4-34); AST 42 U/L (14-36); African American GFR (CKD) 82 (>60 ml/min/1.73 sqM); Albumin 3.8 g/dL (3.5-5.0); Alkaline Phosphatase 82 U/L (38-126); Anion Gap 3 mmol/L; Blood Urea Nitrogen 23 mg/dL (7-17); Calcium 9.3 mg/dL (8.4-10.2); Carbon Dioxide 26 mmol/L (22-30); Chloride 108 mmol/L (98-107); Glucose 97 mg/dL (74-99); Non-African American GFR(CKD) 72 (>60 ml/min/1.73 sqM); Potassium 4.8 mmol/L (3.5-5.1); Sodium 137 mmol/L (137-145); Total Bilirubin 0.6 mg/dL (0.2-1.3); Total Protein 7.1 g/dL (6.3-8.2)
--- NOTE | 2024-09-09 02:05 | XR ---
EXAMINATION TYPE: XR chest 2V DATE OF EXAM: 09/09/2024 COMPARISON: Chest x-ray October 01, 2022 HISTORY: Chest pain TECHNIQUE: Frontal and lateral views of the chest are obtained. FINDINGS: There is no focal air space opacity, pleural effusion, or pneumothorax seen. The cardiac silhouette size is stable and within normal limits. Septal closure device is redemonstrated. The osse ous structures are intact. IMPRESSION: No acute process. No significant change from prior. [facility], , 09/09/2024 2:03 AM
[2024-09-09 02:54] VITALS: BP 173/80; PULSE 84
== END 2024-09-09 03:18 | disposition home or self-care (01) ==
LOC: EC 23:05
DX: M25.531 Pain in right wrist (principal); R07.89 Other chest pain; Z88.5 Allergy status to narcotic agent; Z88.1 Allergy status to other antibiotic agents; Z91.040 Latex allergy status; Z91.09 Other allergy status, other than to drugs and biological substances; Z88.8 Allergy status to other drugs, medicaments and biological substances
CPT/HCPCS: 36415; 71046; 80053; 84484; 85025; 85610; 85730; 93005; 99284

== ENCOUNTER 2024-09-25 07:16 | Day surgery (SDC) | payer MEDICARE ==
[2024-09-25] MEDS ORDERED: LIDOCAINE 1% (10MG/ML) FOR IV START INTRADERMA PRN (07:26)
[2024-09-25 07:46] VITALS: TEMP 97.6
[2024-09-25] MEDS: LACTATED RINGERS 1,000 ML IV SCH (07:51)
[2024-09-25] MEDS: IV FLUID CONTINUATION 1,000 ML IV ONE (07:52)
[2024-09-25] MEDS ORDERED: LIDOCAINE 1% INJ 10MG/ML (20 ML MDV) ONE (08:37)
[2024-09-25] MEDS ORDERED: PROPOFOL 10 MG/ML 20 ML VIAL IV ONE (08:37)
[2024-09-25] MEDS ORDERED: ONDANSETRON 4 MG/2 ML VIAL ONE (08:37)
[2024-09-25 09:05] VITALS: PULSE 86
--- NOTE | 2024-09-25 09:07 | P.PCN ---
Date of Procedure: 09/25/24 Preoperative Diagnosis: GERD Colitis Postoperative Diagnosis: Hiatal hernia Diverticulosis Procedure(s) Performed: EGD with biopsy Colonoscopy Anesthesia: MAC Surgeon: Eliseo Morales Pathology: other (Biopsies of duodenum, antrum, GE junction) Condition: stable Disposition: same day Indications for Procedure: 79-year-old female with recent admission secondary to colitis requiring IV antibiotics. She also has a history of GERD. Plan is for upper and lower endoscopy for further evaluation. Risks, benefits and alternatives were provided prior to attending the endoscopy suite. Operative Findings: Hiatal hernia Diverticulosis Description of Procedure: The patient was brought to the endoscopy suite and placed in left lateral decubitus position and adequate sedation was achieved using conscious sedation. A bite-block was placed and an endoscope was placed in the oropharynx and advanced under endoscopic visualization. The endoscope was advanced through the esophagus into the stomach, through the gastric antrum and in through the pylorus. The third portion of duodenum was visualized. The endoscope was then slowly withdrawn. The first portion of duodenum was noted to have mild inflammatory changes. Biopsies were taken. Similarly, the antrum was noted to have mild inflammatory changes. Biopsies were taken. The gastric body distended normally and the gastric folds appeared normal and flattened with insufflation. A retroflexed view of the fundus and GE junction revealed a mild to moderate-sized hiatal hernia. The esophagus appeared endoscopically normal and biopsies were taken of the GE junction. Excess air was removed and the scope was withdrawn and the procedure was completed. A digital rectal exam was performed and mild internal hemorrhoids were palpated. An endoscope was then placed in the rectum and advanced to the cecum as identified by landmarks including the appendiceal orifice and the ileocecal valve. The prep was good. The colonoscope was then slowly withdrawn, examining for any mucosal abnormalities. The cecum, ascending, transverse, descending and sigmoid colon were visualized adequately. No large inflammatory masses were noted throughout the colon. No obvious polyps. Moderate and significant diverticulosis was noted in the sigmoid colon. No evidence of bleeding. No evidence of stenosis or stricturing. Retroflexion was performed in the rectum and mild internal hemorrhoids were visible. Excess air was removed, the colonoscope withdrawn and the procedure terminated. The patient was then transferred to recovery unit in stable condition. Repeat colonoscopy should be performed in 5 years.
[2024-09-25 09:18] VITALS: BP 136/64; RESP 16
== END 2024-09-25 09:45 | disposition home or self-care (01) ==
LOC: ORWHC2ENDO 07:16
PROVIDERS: ATTEND Surgery
DX: K29.50 Unspecified chronic gastritis without bleeding (principal); K52.9 Noninfective gastroenteritis and colitis, unspecified; K29.80 Duodenitis without bleeding; K21.9 Gastro-esophageal reflux disease without esophagitis; K44.9 Diaphragmatic hernia without obstruction or gangrene; I48.91 Unspecified atrial fibrillation; G45.9 Transient cerebral ischemic attack, unspecified; G43.909 Migraine, unspecified, not intractable, without status migrainosus; J38.00 Paralysis of vocal cords and larynx, unspecified; Z86.39 Personal history of other endocrine, nutritional and metabolic disease; Z88.5 Allergy status to narcotic agent; Z91.040 Latex allergy status; Z79.899 Other long term (current) drug therapy
CPT/HCPCS: 45378; 43239; J2405; J2003; J2704; 88305

== ENCOUNTER 2025-01-28 18:25 | Emergency (ER) | payer MEDICARE ==
--- NOTE | 2025-01-28 19:11 | CT ---
EXAMINATION TYPE: CT brain cindyine wo con DATE OF EXAM: 01/28/2025 COMPARISON: 09/08/2017 CLINICAL INDICATION: Female, 79 years old with history of cope; PHH, fall, on thinners TECHNIQUE: CT scan of the head and cervical spine are performed without contrast. CT DLP: 1538.[address] CTDI: mGy Automated exposure control for dose reduction was used. FINDINGS: There is no acute intracranial hemorrhage, mass effect, or midline shift identified. The ventricles and sulci are within normal limits in size. The globes are intact and the visualized sinuses are radha ar. Cervical spine is visualized in its entirety from C1 through upper thoracic levels and demonstrates s atisfactory alignment without evidence of acute fracture or dislocation. Prevertebral soft tissue ap pears within normal limits. The C1-C2 articulation is unremarkable. IMPRESSION: There is no acute fracture or dislocation evident in the cervical spine. 2. No acute intracranial hemorrhage, mass effect, or midline shift is seen. [facility], , 01/28/2025 7:09 PM
[2025-01-28] MEDS: KETOROLAC 15 MG/ML 1 ML VIAL IM STA (19:29)
--- NOTE | 2025-01-28 19:35 | XR ---
EXAMINATION TYPE: XR knee complete LT DATE OF EXAM: 01/28/2025 7:31 PM COMPARISON: None. CLINICAL INDICATION: Female, 79 years old with history of Fall, pain TECHNIQUE: Three views of the left knee are obtained. FINDINGS: There is no acute fracture/dislocation evident in left knee. Total knee arthroplasty appea rs to be well seated. The overlying soft tissue appears unremarkable. IMPRESSION: There is no acute fracture or dislocation in the left knee. [facility], , 01/28/2025 7:33 PM
--- NOTE | 2025-01-28 19:56 | ED ---
General Adult HPI - General Chief complaint: Fall Stated complaint: Fall Time Seen by Provider: 01/28/25 18:40 Source: patient, RN notes reviewed, old records reviewed Mode of arrival: wheelchair Limitations: no limitations - History of Present Illness Initial comments: This is a 79-year-old female who presents to the emergency department stating that she is on a blood thinner and she fell today hit her knee and hit the left side of her face on her cheek. Patient denies any headache patient denies any bleeding patient Nuys any neck pain patient Nuys numbness or weakness. Patient denies any chest pain or back pain. Patient does complain of left knee pain anteriorly. - Related Data Home Medications Medication Instructions Recorded Confirmed Esomeprazole Magnesium [NexIUM] 20 mg PO DAILY 09/01/15 09/25/24 Vits A,C,E/Lutein/Minerals 1 tab PO BID 09/01/15 09/25/24 [Ocuvite with Lutein Tablet] Fluticasone Nasal [place] [Flonase 2 spr EA NOSTRIL DAILY PRN 08/05/17 09/25/24 Nasal [place]] Multivitamins, Thera [Multivitamin 1 tab PO DAILY 08/05/17 09/25/24 (formulary)] cloNIDine HCL [Catapres] 0.1 mg PO HS 08/05/17 09/21/24 Meloxicam 15 mg PO DAILY 03/14/18 09/25/24 Levothyroxine Sodium [Synthroid] 25 mcg PO DAILY 08/21/20 09/25/24 Diclofenac Sodium [Voltaren 2 gm TOPICAL QID PRN 07/05/24 09/25/24 Arthritis Pain 1% Gel] Iecrfzas-Msmjapufd-Hqptngbk 1 applic BOTH EYES DAILY PRN 07/05/24 09/25/24 [Maxitrol Ophth Oint] guaiFENesin [Mucinex] 600 mg PO Q12H PRN 07/05/24 09/21/24 Famotidine [Pepcid] 20 mg PO BID 09/04/24 09/25/24 Ketotifen Fumarate [[place]] 1 drop BOTH EYES BID 09/04/24 09/25/24 Losartan Potassium 100 mg PO DAILY 09/04/24 09/25/24 Apixaban [Eliquis] 5 mg PO BID 09/21/24 09/25/24 Ergocalciferol [Vitamin D2 (1250 1,250 mcg PO DAILY 09/21/24 09/25/24 Mcg = 12859 Iu)] hydroCHLOROthiazide 25 mg PO DAILY 09/25/24 09/25/24 Allergies Allergy/AdvReac Type Severity Reaction Status Date / Time latex Allergy Rash/Hives Verified 01/28/25 18:37 adhesive tape AdvReac skin Verified 01/28/25 18:37 irritation erythromycin base AdvReac anxiety/stomach Verified 01/28/25 18:37 issues hydrocodone AdvReac Nausea & Verified 01/28/25 18:37 Vomiting oxycodone AdvReac Nausea & Verified 01/28/25 18:37 Vomiting Review of Systems ROS Statement: Those systems with pertinent positive or pertinent negative responses have been documented in the HPI. ROS Other: All systems not noted in ROS Statement are negative. Past Medical History Past Medical History: Atrial Fibrillation, CVA/TIA, Eye Disorder, GERD/Reflux, Hearing Disorder / Deafness, Hypertension, Osteoarthritis (OA), Skin Disorder, Thyroid Disorder Additional Past Medical History / Comment(s): Hx migraines, now dx. w/ocular migraines, Hiatal Hernia. Eczema, hx precancer skin lesions. ALYSON Corneal Dystrophy, Macular Degeneration. TIA 09/2017. 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 Osteoporosis. Hx colitis Jul 2024 hosptialized x 3 days. Low vision. Hole in heart History of Any Multi-Drug Resistant Organisms: None Reported Past Surgical History: Cholecystectomy, Heart Catheterization, Hysterectomy, Joint Replacement, Orthopedic Surgery Additional Past Surgical History / Comment(s): Fertility surgery, opened tube & repaired. Rt knee meniscus repair. Goiter removed, Partial Thyroidectomy. Left and Right total knee replacement. Colonoscopy, EGD, SURESH, Amplatzer Septal Occluder-device inserted 2019 (to cover holes in heart) Past Anesthesia/Blood Transfusion Reactions: Previous Problems w/ Anesthesia Additional Past Anesthesia/Blood Transfusion Reaction / Comment(s): Pt's vocal cord was damaged during thyroid surgery, was told not to have tube put down her throat unless absolutley necessary. Difficult IV start-small veins. Past Psychological History: No Psychological Hx Reported Smoking Status: Never smoker Past Alcohol Use History: Rare Past Drug Use History: None Reported - Past Family History Mother Family Medical History: Cancer, Hypertension Additional Family Medical History / Comment(s): uterine Father Family Medical History: Coronary Artery Disease (CAD), Hypertension Additional Family Medical History / Comment(s): CABG Sister(s) Family Medical History: Cancer Additional Family Medical History / Comment(s): Breast cancer. General Exam - General Exam Comments Initial Comments: GENERAL: Patient is well-developed and well-nourished. Patient is nontoxic and well- hydrated and is in no acute distress. ENT: Neck is soft and supple. No significant lymphadenopathy is noted. Oropharynx is clear. Moist mucous membranes. Neck has full range of motion without eliciting any pain. EYES: The sclera were anicteric and conjunctiva were pink and moist. Extraocular movements were intact and pupils were equal round and reactive to light. Eyelids were unremarkable. PULMONARY: Unlabored respirations. Good breath sounds bilaterally. No audible rales rhonchi or wheezing was noted. CARDIOVASCULAR: There is a regular rate and rhythm without any murmurs gallops or rubs. ABDOMEN: Soft and nontender with normal bowel sounds. SKIN: Skin is clear with no lesions or rashes and otherwise unremarkable. NEUROLOGIC: Patient is alert and oriented x3. Cranial nerves II through XII are grossly intact. Motor and sensory are also intact. Normal speech, volume and content. Symmetrical smile. MUSCULOSKELETAL: Left knee is painful to palpation in the inferior anterior aspect mild ecchymosis in that area LYMPHATICS: No significant lymphadenopathy is noted PSYCHIATRIC: Normal psychiatric evaluation. Limitations: no limitations Course Vital Signs 01/28/25 18:32 Temperature 97.9 F Pulse Rate 68 Respiratory 18 Rate Blood Pressure 165/74 O2 Sat by Pulse 96 Oximetry Medical Decision Making - Medical Decision Making Was pt. sent in by a medical professional or institution (, PA, POURING CRANE OPERATOR, urgent care, hospital, or senior care...) When possible be specific @ -No Did you speak to anyone other than the patient for history (EMS, parent, family, police, friend...)? What history was obtained from this source @ -No Did you review nursing and triage notes (agree or disagree)? Why? @ -I reviewed and agree with nursing and triage notes Were old charts reviewed (outside hosp., previous admission, EMS record, old EKG, old radiological studies, urgent care reports/EKG's, senior care records)? Report findings @ -No old charts were reviewed Differential Diagnosis? @ -Skull fracture, cervical spine fracture, subdural, intraparenchymal bleed, epidural bleed, subarachnoid bleed, this is not all-inclusive list EKG interpreted by me (3pts min.). @ -As above X-rays interpreted by me (1pt min.). @ -X-ray of the knee showed no acute abnormality CT interpreted by me (1pt min.). @ -Brain and C-spine showed no acute abnormality U/S interpreted by me (1pt. min.). @ -None done What testing was considered but not performed or refused? (CT, X-rays, U/S, labs)? Why? @ -None What meds were considered but not given or refused? Why? @ -None Did you discuss the management of the patient with other professionals (professionals i.e. , PA, POURING CRANE OPERATOR, lab, RT, psych nurse, sexual assault social worker, java solutions architect, teacher, transportation officer, case assistant)? Give summary @ -No Was smoking cessation discussed for >3mins.? @ -No Was critical care preformed (if so, how long)? @ -No Were there social determinants of health that impacted care today? How? (Homelessness, low income, unemployed, alcoholism, drug addiction, transportation, low edu. Level, literacy, decrease access to med. care, [facility], rehab)? @ -No Was there de-escalation of care discussed even if they declined (Discuss DNR or withdrawal of care, Hospice)? DNR status @ -No What co-morbidities impacted this encounter? (DM, HTN, Smoking, COPD, CAD, Cancer, CVA, ARF, Chemo, Hep., AIDS, mental health diagnosis, sleep apnea, mo rbid obesity)? @ -None Was patient admitted / discharged? Hospital course, mention meds given and route, prescriptions, significant lab abnormalities, going to OR and other pertinent info. @ -I went and evaluated the patient patient had no scalp tenderness no facial tenderness no neck tenderness and full range of motion of the neck and no numbness or weakness of the upper extremities. Patient's knee x-ray showed Undiagnosed new problem with uncertain prognosis? @ -No Drug Therapy requiring intensive monitoring for toxicity (Heparin, Nitro, Insulin, Cardizem)? @ -No Were any procedures done? @ -No Diagnosis/symptom? @ -Contusion knee Acute, or Chronic, or Acute on Chronic? @ -Acute Uncomplicated (without systemic symptoms) or Complicated (systemic symptoms)? @ -Uncomplicated Side effects of treatment? @ -No Exacerbation, Progression, or Severe Exacerbation? @ -No Poses a threat to life or bodily function? How? (Chest pain, USA, CT, pneumonia, PE, COPD, DKA, ARF, appy, cholecystitis, CVA, Diverticulitis, Homicidal, Suicidal, threat to staff... and all critical care pts) @ -No Diagnosis/symptom? @ -Facial contusion Acute, or Chronic, or Acute on Chronic? @ -Acute Uncomplicated (without systemic symptoms) or Complicated (systemic symptoms)? @ -Uncomplicated Side effects of treatment? @ -None Exacerbation, Progression, or Severe Exacerbation] @ -No Poses a threat to life or bodily function? @ -No Disposition Clinical Impression: Fall, Facial contusion, Knee contusion Disposition: HOME SELF-CARE Condition: Good Instructions (If sedation given, give patient instructions): Fall Prevention for Older Adults (ED), Contusion in Adults (ED) Is patient prescribed a controlled substance at d/c from ED?: No Referrals: Anita Jordan MD [Primary Care Provider] - 1-2 days Time of Disposition: 19:57
[2025-01-28 20:27] VITALS: BP 151/80; PULSE 56; RESP 16; TEMP 97.8
== END 2025-01-28 20:04 | disposition home or self-care (01) ==
LOC: EC 18:25
DX: S00.83XA Contusion of other part of head, initial encounter (principal); S80.02XA Contusion of left knee, initial encounter; Z86.73 Personal history of transient ischemic attack (TIA), and cerebral infarction without residual deficits; Z91.040 Latex allergy status; Z88.5 Allergy status to narcotic agent; Z88.1 Allergy status to other antibiotic agents; Z88.8 Allergy status to other drugs, medicaments and biological substances; W18.30XA Fall on same level, unspecified, initial encounter
CPT/HCPCS: 73562; 72125; 70450; 99284; 96372; J1885